=== PATIENT | male | born 1955 | race African-American/Black ===

== ENCOUNTER 2016-05-30 19:12 | Emergency (ER) | payer MEDICARE, OTHER ==
[2016-05-30 19:24] VITALS: BP 132/69; PULSE 82; RESP 16; TEMP 98.1
[2016-05-30] MEDS ORDERED: KETOROLAC 30 MG/ML 1 ML VIAL IM STA (19:35)
[2016-05-30] MEDS ORDERED: HYDROcodone/APAP 10-325MG 1 EACH TAB PO ONE (19:36)
[2016-05-30] MEDS ORDERED: TOBRAMYCIN 0.3% OPHTH DROPS 5 ML BTL BOTH EYES STA (19:39)
--- NOTE | 2016-05-30 19:56 | XR ---
EXAMINATION TYPE: XR knee complete bilateral DATE OF EXAM: 05/30/2016 7:52 PM COMPARISON: 10/07/2013 HISTORY: Knee pain TECHNIQUE: 6 views FINDINGS: There are bilateral total knee prostheses. There is extensive calcification above the right patella. I see no fracture nor dislocation. 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 No acute fracture seen. Atherosclerotic vascular calcification note d.
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
== END 2016-05-30 20:15 | disposition home or self-care (01) ==
LOC: EC 19:12
DX: M25.461 Effusion, right knee (principal); Q10.3 Other congenital malformations of eyelid; I10 Essential (primary) hypertension; F31.9 Bipolar disorder, unspecified; F41.9 Anxiety disorder, unspecified; F17.210 Nicotine dependence, cigarettes, uncomplicated; Z79.899 Other long term (current) drug therapy; Z88.0 Allergy status to penicillin; Z88.5 Allergy status to narcotic agent
CPT/HCPCS: 73562; 99284; 96372; J1885

== ENCOUNTER 2016-06-02 16:44 | Emergency (ER) | payer MEDICARE, OTHER ==
[2016-06-02] MEDS ORDERED: methylPREDNISolone SOD SUCCI 125 MG/2 ML VIAL IM ONE (17:30)
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
[2016-06-02 18:14] VITALS: BP 178/82; PULSE 72; RESP 16; TEMP 98
== END 2016-06-02 18:13 | disposition home or self-care (01) ==
LOC: EC 16:44
DX: G89.29 Other chronic pain (principal); M25.562 Pain in left knee; M25.561 Pain in right knee; I10 Essential (primary) hypertension; F31.9 Bipolar disorder, unspecified; F41.9 Anxiety disorder, unspecified; F17.210 Nicotine dependence, cigarettes, uncomplicated; Z79.1 Long term (current) use of non-steroidal anti-inflammatories (NSAID); Z79.899 Other long term (current) drug therapy; Z88.0 Allergy status to penicillin; Z88.5 Allergy status to narcotic agent; Z98.890 Other specified postprocedural states
CPT/HCPCS: 99283; 96372; J2930

== ENCOUNTER 2016-06-30 00:41 | Observation (INO) | payer MEDICARE, OTHER ==
[2016-06-30] MEDS ORDERED: MORPHINE SULFATE 4 MG/ML SYRINGE IV STA (01:49)
[2016-06-30] MEDS ORDERED: ASPIRIN 81 MG CHEW PO STA (01:49)
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
[2016-06-30 02:42] LABS: Anisocytosis Slight; Basophils # (A) 0.1 k/uL (0-0.2); Basophils % (A) 1 %; CH 28.9; CHCM 32.6; Eosinophils # (A) 0.3 k/uL (0-0.7); Eosinophils % (A) 3 %; HCT 34.3 % (39.0-53.0); Luc # (Auto) 0.09; Luc % (Auto) 1; Lymphocytes # (A) 1.7 k/uL (1.0-4.8); Lymphocytes % (A) 21 %; MCH 28.6 pg (25.0-35.0); MCV 89.3 fL (80.0-100.0); Mean Platelet Volume 6.8; Monocytes # (A) 0.4 k/uL (0-1.0); Monocytes % (A) 4 %; Neutrophils # (A) 5.6 k/uL (1.3-7.7); Neutrophils % (A) 69 %; RBC 3.84 m/uL (4.30-5.90); RDW 16.3 % (11.5-15.5); WBC 8.1 k/uL (3.8-10.6)
--- NOTE | 2016-06-30 02:47 | XR ---
EXAM: XR Chest, 1 View CLINICAL HISTORY: Reason: chest pain TECHNIQUE: Frontal view of the chest. COMPARISON: Chest radiograph 09/15/2013 FINDINGS: Lungs: Pulmonary vasculature is within normal limits. Right base subsegmental atelectasis. No focal pulmonary infiltrates or consolidations. Pleural space: No evidence of pleural effusion or pneumothorax. Heart: [id number] cardiomegaly. Mediastinum: Unremarkable. Bones/joints: Imaged bony thorax is unremarkable. IMPRESSION: [id number] cardiomegaly. Right base subsegmental atelectasis. No evidence of acute cardiopulmonary disease.
[2016-06-30 02:49] LABS: INR 1.1 (<1.1); Partial Thromboplastin Time 27.2 sec (22.0-30.0); Prothrombin Time 11.4 sec (9.0-12.0)
[2016-06-30 02:53] LABS: ALT 24 U/L (21-72); AST 16 U/L (17-59); Alkaline Phosphatase 117 U/L (38-126); Anion Gap 10 mmol/L; Blood Urea Nitrogen 20 mg/dL (9-20); Calcium 8.5 mg/dL (8.4-10.2); Carbon Dioxide 19 mmol/L (22-30); Chloride 110 mmol/L (98-107); Glucose 136 mg/dL (74-99); Magnesium 2.1 mg/dL (1.6-2.3); Non-African American GFR(MDRD) >60 (>60 ml/min/1.73 sqM); Potassium 3.6 mmol/L (3.5-5.1); Sodium 139 mmol/L (137-145); Total Bilirubin 0.3 mg/dL (0.2-1.3); Total Protein 6.5 g/dL (6.3-8.2)
[2016-06-30] MEDS ORDERED: NITROGLYCERIN SL TABS 0.4 MG TAB SUBLINGUAL PRN (06:56)
[2016-06-30] MEDS ORDERED: HYDROcodone/APAP 5-325MG 1 EACH TAB PO STA (07:24)
[2016-06-30] MEDS ORDERED: HYDROcodone/APAP 5-325MG 1 EACH TAB PO PRN (07:24)
[2016-06-30 07:58] VITALS: BMI 27.1
[2016-06-30 08:05] VITALS: RESP 16
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
[2016-06-30] MEDS ORDERED: ETODOLAC 200 MG CAPSULE PO SCH (09:00)
[2016-06-30] MEDS ORDERED: VERAPAMIL SR 120 MG TABLET.ER PO SCH (09:00)
[2016-06-30] MEDS ORDERED: DULoxetine HCL 60 MG CAPSULE.DR PO SCH (09:00)
[2016-06-30] MEDS ORDERED: QUEtiapine 50 MG TAB PO SCH (09:00)
[2016-06-30 10:14] LABS: Creatine Kinase 45 U/L (55-170)
[2016-06-30 10:27] LABS: Creatine Kinase MB 0.5 ng/mL (0.0-2.4); Troponin I <0.012 ng/mL (0.000-0.034)
[2016-06-30 12:14] VITALS: BP 162/77; PULSE 61; TEMP 97.3
[2016-06-30] MEDS ORDERED: QUEtiapine 100 MG TAB PO SCH ×2 (12:30→21:00)
--- NOTE | 2016-06-30 14:02 | HP ---
DATE OF ADMISSION: This dictation is both H&P and discharge summary. Patient is a 60-year-old gentleman who came in with complaints of chest pain, palpitations, racing of heart and fluttering and sweating and dizziness and patient was found to be SVT. The patient converted to sinus rhythm after he was treated with adenosine. Patient had cardiac catheterization to 04/08 which showed normal coronaries and cardiology evaluated the patient and recommending two more sets of troponins. If they are negative, they are recommending discharge. Patient is complaining of right knee pain where he had a knee replacement for which he will need to follow with primary care physician as an outpatient and his surgeon. Patient is symptom-free at this point of time. Patient is clinically doing well. No changes in his verapamil are being made. Patient down the line may benefit from EP study and ambulation. Same thing was discussed with the patient. ROS: all other systems were reviewed and were negative. PAST MEDICAL HISTORY: Significant for hypertension, pneumonia, seizure disorder, sleep apnea, SVT in the past, joint replacement surgery, orthopedic surgery, appendectomy, anxiety, bipolar depression. SOCIAL HISTORY: Patient continues to smoke, he says 2 cigars per day although I believe he smokes more than that. Denied any alcohol abuse or any drug abuse. Patient denied any alcohol abuse or drug abuse. Patient in the past used cocaine and weed. FAMILY HISTORY: Father had prostate cancer and mother had no significant history. Home medications include: Seroquel, Duloxetine, etodolac, verapamil. ALLERGIES: PENICILLIN AND MORPHINE. PHYSICAL EXAMINATION: VITAL SIGNS: Temperature 97.3, pulse of 59 now, respiratory rate of 16. Blood pressure is 147/73, saturating at 965 on room air. GENERAL: Alert and oriented x3. Thin built. HEENT: Pupils are round and equally reacting to light. EOMI. No scleral icterus. No conjunctival pallor. Normocephalic, atraumatic. No pharyngeal erythema. No thyromegaly. CARDIOVASCULAR: S1 and S2 present. No murmurs, rubs, or gallops. PULMONARY: Chest is clear to auscultation, no wheezing or crackles. ABDOMEN: Soft, nontender, nondistended, normoactive bowel sounds. No palpable organomegaly. MUSCULOSKELETAL: No joint swelling or deformity. EXTREMITIES: No cyanosis, clubbing, or pedal edema. NEUROLOGICAL: Gross neurological examination did not reveal any focal deficits. SKIN: No rashes. LABORATORY DATA: CBC, CMP are abnormal for mildly elevated creatinine of 1.20. I do not have his baseline. Chloride is 110. TSH is not available at this time and can be done as an outpatient. ASSESSMENT AND PLAN: 1. Episode of supraventricular tachycardia leading to chest pain and will also rule out acute coronary syndrome. Patient will be subsequently discharged after the second set of troponins if it is negative. 2. Sleep apnea. Continue with his CPAP machine. 3. Continued smoking history. Counseling was provided. 4. Seizure disorder. Does not appear to be on any antiseizure medications at this point of time. That management as per primary care physician. 5. Bipolar disorder for which patient is on Seroquel, which can be continued. The patient will be discharged today in stable medical condition to home. Patient will follow with Dr. Tijerina in 3 weeks, Dr. Patrick Rogers in 3 to 7 days. Patient down the line will require EP study and ablation procedure. TERRANCE
[2016-07-01] MEDS ORDERED: ASPIRIN 325 MG TAB PO SCH (09:00)
== END 2016-06-30 14:20 | disposition home or self-care (01) ==
LOC: EC 00:41 → 3OBS 06:56
PROVIDERS: ADMIT Family Medicine; ATTEND Family Medicine
DX: I47.1 Supraventricular tachycardia (principal); G40.909 Epilepsy, unspecified, not intractable, without status epilepticus; G47.30 Sleep apnea, unspecified; F31.9 Bipolar disorder, unspecified; I10 Essential (primary) hypertension; F41.9 Anxiety disorder, unspecified; M25.561 Pain in right knee; Z88.5 Allergy status to narcotic agent; Z88.0 Allergy status to penicillin; F17.290 Nicotine dependence, other tobacco product, uncomplicated; Z99.89 Dependence on other enabling machines and devices; Z79.899 Other long term (current) drug therapy; Z79.1 Long term (current) use of non-steroidal anti-inflammatories (NSAID); Z96.653 Presence of artificial knee joint, bilateral
CPT/HCPCS: 96374; 99285; 36415; 93005; 80053; 82550; 82553; 83735; 84484; 85025; 85610; 85730; 71010; G0378; J2270

== ENCOUNTER 2017-04-01 13:18 | Emergency (ER) | payer MEDICARE, OTHER ==
[2017-04-01 13:29] VITALS: PULSE 67; RESP 18; TEMP 97.4
[2017-04-01] MEDS ORDERED: HYDROcodone/APAP 7.5-325MG 1 EACH TAB PO ONE (14:55)
[2017-04-01] MEDS ORDERED: KETOROLAC 30 MG/ML 1 ML VIAL IM STA (14:55)
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
[2017-04-01 15:19] LABS: Appearance,Urine Cloudy (Clear); Bacteria,Urine Occasional /hpf; Bilirubin,Urine Negative (Negative); Blood,Urine Negative (Negative); Color,Urine Yellow; Glucose,Urine (UA) Negative (Negative); Ketones,Urine Negative (Negative); Leukocyte Esterase,Urine Large (Negative); Mucus,Urine Rare /hpf; Nitrite,Urine Negative (Negative); PH, Urine 6.5 (5.0-8.0); Protein,Urine 1+ (Negative); RBC,Urine 13 /hpf (0-5); Specific Gravity,Urine 1.012 (1.001-1.035); Squamous Epithelial Cell,Urine 2 /hpf (0-4); Urobilinogen,Urine <2.0 mg/dL (<2.0); WBC,Urine 91 /hpf (0-5)
[2017-04-01 15:29] LABS: Amphetamine Screen,Urine Not Detected (NotDetected); Barbiturate Screen,Urine Not Detected (NotDetected); Benzodiazepines Screen,Urine Not Detected (NotDetected); Cocaine Screen,Urine Detected (NotDetected); Methadone Screen, Urine Not Detected (NotDetected); Opiate Screen,Urine Not Detected (NotDetected); Oxycodone Screen, Urine Not Detected (NotDetected); Phencyclidine Screen,Urine Not Detected (NotDetected); Tricyclic Antidepressant,Urine Detected (NotDetected); Urn Cannabinoid Scrn Not Detected (NotDetected)
--- NOTE | 2017-04-01 15:32 | XR ---
EXAMINATION TYPE: XR pelvis AP view DATE OF EXAM: 04/01/2017 CLINICAL HISTORY: pain TECHNIQUE: Single view the pelvis is submitted. FINDINGS: No evidence for fracture, dislocation or bony lesion. Joint spaces are well-preserved. S I joints appear symmetric. IMPRESSION: 1. No acute fracture or dislocation seen. ICD 10 NO FRACTURE, INITIAL EVALUATION
[2017-04-01 16:03] VITALS: BP 188/93
== END 2017-04-01 16:02 | disposition home or self-care (01) ==
LOC: EC 13:18
DX: G89.29 Other chronic pain (principal); R10.32 Left lower quadrant pain; F14.10 Cocaine abuse, uncomplicated; F41.9 Anxiety disorder, unspecified; R45.1 Restlessness and agitation; R29.898 Other symptoms and signs involving the musculoskeletal system; I10 Essential (primary) hypertension; F31.9 Bipolar disorder, unspecified; F17.200 Nicotine dependence, unspecified, uncomplicated; Z79.1 Long term (current) use of non-steroidal anti-inflammatories (NSAID); Z79.899 Other long term (current) drug therapy; Z88.0 Allergy status to penicillin; Z88.5 Allergy status to narcotic agent; Z86.79 Personal history of other diseases of the circulatory system; Z90.49 Acquired absence of other specified parts of digestive tract
CPT/HCPCS: 81001; 80306; 72170; 99284; 96372; J1885

== ENCOUNTER 2017-04-09 18:31 | Inpatient (IN) | payer MEDICARE, OTHER ==
[2017-04-09] MEDS ORDERED: SODIUM CHLORIDE 0.9% 500 ML IV STA ×2 (18:52→20:17)
[2017-04-09] MEDS ORDERED: SODIUM CHLORIDE 0.9% 1,000 ML IV STA ×3 (18:52→20:17)
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
[2017-04-09 19:19] LABS: Anisocytosis Slight; Basophils % (A) 0 %; Eosinophils % (A) 0 %; HGB 11.7 gm/dL (13.0-17.5); Hypochromasia Moderate; Lymphocytes # (A) 0.9 k/uL (1.0-4.8); Lymphocytes % (A) 8 %; MCH 28.8 pg (25.0-35.0); MCHC 30.1 g/dL (31.0-37.0); MCV 95.5 fL (80.0-100.0); Mean Platelet Volume 7.7; Monocytes # (A) 0.3 k/uL (0-1.0); Monocytes % (A) 3 %; Neutrophils # (A) 9.1 k/uL (1.3-7.7); Neutrophils % (A) 88 %; Platelet Count 148 k/uL (150-450); RBC 4.08 m/uL (4.30-5.90); RDW 16.1 % (11.5-15.5); WBC 10.4 k/uL (3.8-10.6)
[2017-04-09] MEDS ORDERED: DILTIAZEM 125 MG in SODIUM CHLORIDE 0.9% 100 ML IV ONE (19:26)
[2017-04-09] MEDS ORDERED: DILTIAZEM 5 MG/ML 5 ML VIAL IVP STA (19:26)
[2017-04-09 19:27] LABS: INR 1.2 (<1.2); Partial Thromboplastin Time 24.1 sec (22.0-30.0); Prothrombin Time 11.5 sec (9.0-12.0)
[2017-04-09] MEDS ORDERED: LABETALOL 5 MG/ML VIAL MDV IVP STA (19:27)
[2017-04-09 19:29] LABS: ALT 58 U/L (21-72); AST 132 U/L (17-59); Acetaminophen <10.0 ug/mL; Albumin 5.1 g/dL (3.5-5.0); Alcohol <10 mg/dL; Alkaline Phosphatase 178 U/L (38-126); Calcium 8.4 mg/dL (8.4-10.2); Chloride 114 mmol/L (98-107); Glucose 112 mg/dL (74-99); Magnesium 1.9 mg/dL (1.6-2.3); Potassium 5.4 mmol/L (3.5-5.1); Salicylate <1.0 mg/dL; Sodium 152 mmol/L (137-145); Total Bilirubin 0.7 mg/dL (0.2-1.3); Total Protein 9.2 g/dL (6.3-8.2)
[2017-04-09 19:33] LABS: Anion Gap 29 mmol/L
[2017-04-09 19:44] LABS: Blood Urea Nitrogen 97 mg/dL (9-20); Carbon Dioxide 9 mmol/L (22-30)
[2017-04-09 19:45] LABS: Phosphorus 9.2 mg/dL (2.5-4.5)
[2017-04-09 19:49] LABS: Troponin I 0.031 ng/mL (0.000-0.034)
--- NOTE | 2017-04-09 19:51 | CT ---
EXAMINATION TYPE: CT brain wo con DATE OF EXAM: 04/09/2017 COMPARISON: 09/15/2013 HISTORY: Weakness. Fall today, possible seizure. CT DLP: 2764.20 mGycm Automated exposure control for dose reduction was used. FINDINGS: The ventricles have normal size. There is no mass effect nor midline shift. There is no sign of intra cranial hemorrhage. There is mild cerebral cortical atrophy. The calvarium is intact. IMPRESSION: MILD ATROPHY. OTHERWISE NEGATIVE EXAM. NO CHANGE.
--- NOTE | 2017-04-09 19:53 | XR ---
EXAMINATION TYPE: XR chest 2V DATE OF EXAM: 04/09/2017 COMPARISON: 01/20/2017 HISTORY: Altered mental status. Fall. TECHNIQUE: Frontal and lateral views of the chest are obtained. FINDINGS: Heart is enlarged. There is no heart failure. Lungs are clear of consolidation. Thoracic a malcolm is atheromatous. There are chest leads. There is old right lateral healed rib fracture. There is spurring in the thoracic spine. IMPRESSION: Cardiomegaly. No active cardiopulmonary disease. No change compared to old exam.
[2017-04-09 20:03] LABS: Creatine Kinase MB 47.2 ng/mL (0.0-2.4)
[2017-04-09] MEDS ORDERED: NALOXONE 0.4 MG/ML 1 ML VIAL IV PRN (20:17)
[2017-04-09] MEDS ORDERED: LORazepam 2 MG/ML INJ IV PRN (20:20)
[2017-04-09] MEDS ORDERED: THIAMINE 100 MG/ML 2 ML VIAL IM STA (20:20)
[2017-04-09] MEDS ORDERED: hydrALAZINE HCL 20 MG/ML 1 ML VIAL IVP STA (20:40)
[2017-04-09] MEDS ORDERED: levETIRAcetam IV 1,000 MG in SALINE 1 100ML.BAG IVPB STA (20:43)
[2017-04-09] MEDS ORDERED: LORazepam 2 MG/ML INJ IV STA (20:52)
[2017-04-09 21:14] LABS: Appearance,Urine Clear (Clear); Bacteria,Urine Rare /hpf; Bilirubin,Urine Negative (Negative); Blood,Urine Moderate (Negative); Color,Urine Light Yellow; Glucose,Urine (UA) Negative (Negative); Ketones,Urine Trace (Negative); Leukocyte Esterase,Urine Negative (Negative); Mucus,Urine Rare /hpf; Nitrite,Urine Negative (Negative); Protein,Urine 2+ (Negative); RBC,Urine 1 /hpf (0-5); Specific Gravity,Urine 1.007 (1.001-1.035); Squamous Epithelial Cell,Urine <1 /hpf (0-4); Urobilinogen,Urine <2.0 mg/dL (<2.0); WBC,Urine <1 /hpf (0-5)
[2017-04-09] MEDS: DEXTROSE 5% IN WATER 1,000 ML with SODIUM BICARB (1 MEQ/ML) 150 ML IV SCH (21:22)
[2017-04-09 21:24] LABS: Amphetamine Screen,Urine Not Detected (NotDetected); Barbiturate Screen,Urine Not Detected (NotDetected); Benzodiazepines Screen,Urine Not Detected (NotDetected); Cocaine Screen,Urine Detected (NotDetected); Methadone Screen, Urine Not Detected (NotDetected); Opiate Screen,Urine Detected (NotDetected); Oxycodone Screen, Urine Not Detected (NotDetected); Phencyclidine Screen,Urine Not Detected (NotDetected); Tricyclic Antidepressant,Urine Not Detected (NotDetected); Urn Cannabinoid Scrn Not Detected (NotDetected)
[2017-04-09] MEDS ORDERED: cloNIDine 0.1 MG/24HR PATCH 1 PATCH PATCH TRANSDERM SCH (23:00)
[2017-04-10] MEDS: CLEVIDIPINE BUTYRATE 25 MG in EMPTY BAG 1 BAG IV SCH ×7 (00:51→21:08)
[2017-04-10] MEDS: LORazepam 2 MG/ML INJ IV PRN ×8 (02:54→22:15)
[2017-04-10 05:49] LABS: Anisocytosis Slight; Basophils % (A) 0 %; Eosinophils % (A) 0 %; HGB 11.1 gm/dL (13.0-17.5); Lymphocytes # (A) 1.5 k/uL (1.0-4.8); Lymphocytes % (A) 18 %; MCH 29.2 pg (25.0-35.0); MCHC 31.6 g/dL (31.0-37.0); MCV 92.2 fL (80.0-100.0); Mean Platelet Volume 7.9; Monocytes # (A) 0.4 k/uL (0-1.0); Monocytes % (A) 5 %; Neutrophils # (A) 6.4 k/uL (1.3-7.7); Neutrophils % (A) 76 %; Platelet Count 131 k/uL (150-450); RBC 3.79 m/uL (4.30-5.90); RDW 16.5 % (11.5-15.5); WBC 8.4 k/uL (3.8-10.6)
[2017-04-10 06:09] LABS: Albumin 4.4 g/dL (3.5-5.0); Calcium 7.5 mg/dL (8.4-10.2); Magnesium 1.6 mg/dL (1.6-2.3); Phosphorus 6.3 mg/dL (2.5-4.5); Potassium 3.4 mmol/L (3.5-5.1); Total Bilirubin 0.7 mg/dL (0.2-1.3)
[2017-04-10] MEDS: IPRATROPIUM-ALBUTEROL 3 ML NEB INHALATION PRN ×2 (08:07→10:54)
[2017-04-10] MEDS: levETIRAcetam IV 1,000 MG in SALINE 1 100ML.BAG IVPB SCH ×2 (08:55→23:01)
[2017-04-10] MEDS: PANTOPRAZOLE 40 MG/10 ML VIAL IV SCH (08:55)
[2017-04-10] MEDS: DEXTROSE 5% IN WATER 1,000 ML with SODIUM BICARB (1 MEQ/ML) 150 ML IV SCH (08:56)
[2017-04-10] MEDS ORDERED: ENOXAPARIN 40 MG/0.4 ML SYRINGE SQ SCH (09:00)
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
[2017-04-10] MEDS: cloNIDine 0.3 MG/24HR PATCH 1 PATCH PATCH TRANSDERM SCH (11:39)
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
--- NOTE | 2017-04-10 16:06 | PN ---
PROGRESS NOTE DATE OF SERVICE: 04/10/17 CHIEF COMPLAINT: Coma, rhabdomyolysis, renal failure. HISTORY OF PRESENT ILLNESS: This gentleman has been stable overnight but there has been no significant change. Laboratory values are to be repeated. He is still comatose. PHYSICAL EXAM: CHEST: Clear. The cardiac exam is unchanged. Abdomen is soft. Extremities the same. He remains very dehydrated. His blood pressure is elevated. IMPRESSION: 1. Rhabdomyolysis. 2. Renal failure, probably chronic and acute. 3. Cirrhosis. 4. Alcoholism. 5. Drug addiction. 6. Atrial fibrillation. PLAN: He will be transferred ICU and medical management and support will continue. Prognosis is poor. MMODL / IJN: [id number] /
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
[2017-04-10] MEDS: THIAMINE 100 MG TAB PO SCH ×2 (16:25→18:46)
[2017-04-10 17:15] LABS: HIV AB P24 Non-Reactive (Non-Reactive); HIV P24 AG Non-Reactive (Non-Reactive)
[2017-04-10 18:07] LABS: Anisocytosis Slight; Basophils % (A) 0 %; Eosinophils % (A) 1 %; HCT 36.2 % (39.0-53.0); HGB 11.3 gm/dL (13.0-17.5); Lymphocytes # (A) 1.5 k/uL (1.0-4.8); Lymphocytes % (A) 19 %; MCHC 31.2 g/dL (31.0-37.0); MCV 93.1 fL (80.0-100.0); Mean Platelet Volume 7.8; Monocytes # (A) 0.5 k/uL (0-1.0); Monocytes % (A) 6 %; Neutrophils # (A) 5.7 k/uL (1.3-7.7); Neutrophils % (A) 72 %; Platelet Count 131 k/uL (150-450); RBC 3.88 m/uL (4.30-5.90); RDW 16.2 % (11.5-15.5); WBC 7.9 k/uL (3.8-10.6)
[2017-04-10 18:14] LABS: Hepatitis A Antibody IgM Non-Reactive (Non-Reactive); Hepatitis B Core IgM Non-Reactive (Non-Reactive)
[2017-04-10 18:19] LABS: Calcium 7.2 mg/dL (8.4-10.2); Magnesium 1.5 mg/dL (1.6-2.3); Phosphorus 5.3 mg/dL (2.5-4.5); Potassium 3.4 mmol/L (3.5-5.1)
[2017-04-10 18:40] LABS: Glucose,Whole Blood 101 mg/dL (75-99)
[2017-04-10] MEDS ORDERED: LORazepam 2 MG/ML INJ IM STA (20:51)
[2017-04-11] MEDS: CLEVIDIPINE BUTYRATE 25 MG in EMPTY BAG 1 BAG IV SCH ×3 (00:20→07:48)
[2017-04-11] MEDS: DEXTROSE 5% IN WATER 1,000 ML with SODIUM BICARB (1 MEQ/ML) 150 ML IV SCH (00:27)
[2017-04-11] MEDS: LORazepam 2 MG/ML INJ IV PRN ×9 (02:41→23:10)
[2017-04-11 05:16] LABS: Anisocytosis Slight; Basophils % (A) 0 %; Eosinophils # (A) 0.1 k/uL (0-0.7); Eosinophils % (A) 1 %; HCT 35.5 % (39.0-53.0); HGB 11.5 gm/dL (13.0-17.5); Lymphocytes # (A) 1.5 k/uL (1.0-4.8); Lymphocytes % (A) 19 %; MCH 29.2 pg (25.0-35.0); MCHC 32.3 g/dL (31.0-37.0); MCV 90.4 fL (80.0-100.0); Mean Platelet Volume 7.6; Monocytes # (A) 0.4 k/uL (0-1.0); Monocytes % (A) 6 %; Neutrophils # (A) 5.8 k/uL (1.3-7.7); Neutrophils % (A) 73 %; Platelet Count 125 k/uL (150-450); RBC 3.93 m/uL (4.30-5.90); RDW 16.3 % (11.5-15.5); WBC 7.9 k/uL (3.8-10.6)
[2017-04-11 05:30] LABS: Calcium 6.8 mg/dL (8.4-10.2); Magnesium 1.4 mg/dL (1.6-2.3); Phosphorus 4.6 mg/dL (2.5-4.5); Potassium 3.4 mmol/L (3.5-5.1)
[2017-04-11] MEDS ORDERED: Potassium Replacement Protocol 1 EACH MISC MISCELLANE PRN ×3 (06:37→15:42)
[2017-04-11] MEDS ORDERED: POTASSIUM CHLORIDE 10 MEQ in WATER FOR INJECTION 1 100ML.BAG IVPB ONE (06:37)
[2017-04-11] MEDS ORDERED: Magnesium Replacement Protocol 1 EACH MISC MISCELLANE PRN (06:38)
--- NOTE | 2017-04-11 07:10 | XR ---
EXAMINATION TYPE: XR chest 1V DATE OF EXAM: 04/11/2017 COMPARISON: 04/09/2017 HISTORY: 61-year-old male rule out pleural effusions, shortness of breath TECHNIQUE: Single frontal view of the chest is obtained. FINDINGS: Heart is borderline enlarged. Mild elongation of the thoracic aorta. Mild interstitial prominence is unchanged. No significant pleural effusion seen. IMPRESSION: Borderline cardiomegaly. No definite acute process. No significant effusion seen on the frontal view.
[2017-04-11] MEDS ORDERED: HALOPERIDOL LACTATE 5 MG/ML 1 ML VIAL ONE (08:05)
[2017-04-11] MEDS: levETIRAcetam IV 1,000 MG in SALINE 1 100ML.BAG IVPB SCH (08:52)
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
[2017-04-11] MEDS: MAGNESIUM SULFATE-D5W PMX 1 GM in DEXTROSE/WATER 1 100ML.BAG IVPB SCH ×3 (10:01→11:02)
[2017-04-11] MEDS: ENOXAPARIN 30 MG/0.3 ML SYRINGE SQ SCH (10:23)
[2017-04-11] MEDS: PANTOPRAZOLE 40 MG/10 ML VIAL IV SCH (10:26)
--- NOTE | 2017-04-11 11:17 | P.PN ---
Subjective Progress Note Date: 04/11/17 Principal diagnosis: Altered mental status secondary to multiple drug overdose, urine drug screen positive for cocaine and opiates. This is a 61-year-old gentleman with a known history of SVT on verapamil, hypertension, alcoholism with previous seizures, pancreatitis, sleep apnea not utilizing CPAP in the outpatient setting, severe peng from his chest to his lower extremities from previous fall into it been of acid while working and the [place] area many years ago osteoarthritis with bilateral knee replacements , bipolar disorder, chronic and ongoing tobacco dependence, chronic and ongoing drug abuse. He was brought into the emergency room approximately 6:30 last evening after being found in just a T-shirt laying on a porch next to his apartment complex. His urine drug screen was positive for opiates and cocaine. Sodium 152, potassium 5.4, chloride 114, bicarb 9, BUN 97 creatinine 5.10 mL lactic acid 4.3, AST 132, total creatinine kinase 4631, TSH 0.333. EKG shows atrial fibrillation with ST and T-wave abnormalities of the inferior lateral leads along with LVH. Troponin 0.031. Computed tomography scan of the brain was negative for any acute intracranial abnormalities. Chest x-ray reveals no acute pulmonary process. He has been hypertensive systolic 200s over diastolic 100s. He's been initiated on Clevidipine currently at 16 mg per hour. He is also on D5 W with 3 A of bicarb at 100 mL per hour. He is seen today in consultation in the end emergency room. He remains quite obtunded. Grimacing to painful stimuli only. Current labs reveal a WBC 8.4, hemoglobin 11.1, sodium 148, potassium 3.4, chloride 116, carbon dioxide 12, BUN 93, creatinine 4.20. Most of his history is taken from his sister who is at the bedside. She states he's had drug abuse problems for many many years. Lactic acid down to 1.0. He Has been able to protect his airway. He is saturating up to 100% on room air. He is less tachycardic. No tachypnea. Core temperature 97.7. He has been initiated on Keppra. He is also on the CIWA protocol. Awaiting transfer to the intensive care unit. Patient was reevaluated today on 04/11/2017, he is presently in the intensive care unit, intermittently agitated, and one of his IVs was pulled out. Nursing staff had difficulty reestablishing another IV access. However his still has one IV access in place, and the patient is receiving Ativan and Haldol when necessary. Seems to be working well especially after adding Haldol. Patient remains on IV fluids as ordered yesterday, however his sodium is up to 151, chloride is 115, and bicarb is up from 12-16. WBC count is 7.9 hemoglobin is 11.5. Patient is on IV fluid in the form of D5W and sodium bicarbonate added. Presently in sinus rhythm, he was on Cardizem for atrial fibrillation. But he converted to sinus rhythm. Remains on bronchodilators, remains on Ativan, and on Haldol when necessary. Chest x-ray showed cardiomegaly but no evidence of active disease. Patient was seen by nephrology in consultation, and he was felt to have acute kidney injury secondary to acute tubular necrosis, and he was kept on aggressive IV hydration. Maintained also on sodium bicarb for his lactic acidosis. And his hypernatremia is being corrected with free water. Objective - Vital Signs Vital signs: Vital Signs Temp 97.1 F L 04/11/17 08:00 Pulse 60 04/11/17 11:00 Resp 13 04/11/17 11:00 BP 112/61 04/11/17 11:00 Pulse Ox 100 04/11/17 11:00 Intake & Output 04/10/17 04/11/17 04/11/17 18:59 06:59 18:59 Intake Total 374.513 4176.000 1035.667 Output Total 2690 735 1175 Balance -2062.300 615.000 -139.333 Weight 81.647 kg 59.9 kg Intake: IV 40 1200 1000 0.9 NS 40 Dextrose 5% in Water 1, 1200 500 000 ml @ 100 mls/hr IV . [id number] ANDREA with Sodium Bicarb (1 Meq/ml) 150 ml Rx#:[id number] Magnesium Sulfate-D5w Pmx 200 1 gm In Dextrose/Water 1 100ml.bag @ 100 mls/hr IVPB Q1H ANDREA Rx#: [id number] Potassium Chloride 10 meq 200 In Water For Injection 1 100ml.bag @ 100 mls/hr IVPB ONCE ONE Rx#: [id number] levETIRAcetam IV 1,000 mg 100 In Saline 1 100ml.bag @ 400 mls/hr IVPB Q12HR ANDREA Rx#:[id number] Intake, IV Titration 587.700 150.000 35.667 Amount Clevidipine Butyrate 25 187.700 150.000 35.667 mg In Empty Bag 1 bag @ 1 MG/HR 2 mls/hr IV .Q24H ANDREA Rx#:[id number] Dextrose 5% in Water 1, 400 000 ml @ 100 mls/hr IV . [id number] ANDREA with Sodium Bicarb (1 Meq/ml) 150 ml Rx#:[id number] Output: Urine 2690 735 1175 Other: Voiding Method Indwelling Catheter Indwelling Catheter - Exam GENERAL EXAM: Frail, cachectic. Lethargic, arousable, follows simple instructions only. HEAD: Normocephalic. EYES: Sluggish reaction of pupils, equal size. NOSE: Clear with pink turbinates. THROAT: No erythema or exudates. NECK: No masses, no JVD. CHEST: No chest wall deformity. LUNGS: Equal air entry with no crackles, wheeze, rhonchi or dullness. CVS: S1 and S2 normal with no audible murmur, regular rhythm. ABDOMEN: No hepatosplenomegaly, normal bowel sounds, no guarding or rigidity. SPINE: No scoliosis or deformity SKIN: No rashes, evidence of previous skin grafting of the chest and lower extremities. CENTRAL NERVOUS SYSTEM: Moving all 4 extremities. EXTREMITIES: There is no peripheral edema. No clubbing, no cyanosis. Peripheral pulses are intact. There are wounds of the toes. - Labs CBC & Chem 7: 04/11/17 04:53 04/11/17 04:53 Labs: Abnormal Lab Results - Last 24 Hours (Table) 04/10/17 04/10/17 04/10/17 Range/Units 05:35 17:50 17:50 RBC 3.88 L (4.30-5.90) m/uL Hgb 11.3 L (13.0-17.5) gm/dL Hct 36.2 L (39.0-53.0) % RDW 16.2 H (11.5-15.5) % Plt Count 131 L (150-450) k/uL Sodium 151 H (137-145) mmol/L Potassium 3.4 L (3.5-5.1) mmol/L Chloride 115 H (98-107) mmol/L Carbon Dioxide 17 L (22-30) mmol/L BUN 88 H* (9-20) mg/dL Creatinine 4.10 H (0.66-1.25) mg/dL Glucose 124 H (74-99) mg/dL POC Glucose (mg/dL) (75-99) mg/dL Calcium 7.2 L (8.4-10.2) mg/dL Phosphorus 5.3 H (2.5-4.5) mg/dL Magnesium 1.5 L (1.6-2.3) mg/dL Hep C IgG Ab Reactive H (Non-Reactive) 04/10/17 04/11/17 04/11/17 Range/Units 18:38 04:53 04:53 RBC 3.93 L (4.30-5.90) m/uL Hgb 11.5 L (13.0-17.5) gm/dL Hct 35.5 L (39.0-53.0) % RDW 16.3 H (11.5-15.5) % Plt Count 125 L (150-450) k/uL Sodium 151 H (137-145) mmol/L Potassium 3.4 L (3.5-5.1) mmol/L Chloride 115 H (98-107) mmol/L Carbon Dioxide 16 L (22-30) mmol/L BUN 86 H* (9-20) mg/dL Creatinine 3.98 H (0.66-1.25) mg/dL Glucose 115 H (74-99) mg/dL POC Glucose (mg/dL) 101 H (75-99) mg/dL Calcium 6.8 L (8.4-10.2) mg/dL Phosphorus 4.6 H (2.5-4.5) mg/dL Magnesium 1.4 L (1.6-2.3) mg/dL Hep C IgG Ab (Non-Reactive) Microbiology - Last 24 Hours (Table) 04/09/17 20:30 Urine Culture - Preliminary Urine,Catheterized Assessment and Plan Assessment: #1 Altered mental status suspected secondary to multiple drug overdose. Urine drug screen positive for cocaine and opiates. #2 Rhabdomyolysis secondary to suspected prolonged down time. CPK on admission was 4631, we'll continue to monitor CPK. #3 Acute on chronic renal failure with presenting creatinine of 5.10, currently 4.20. Acidosis. Currently on a bicarb drip. #4 Hyperkalemia with presenting potassium 5.4, currently 3.4. #5 Hypernatremia with presenting sodium 152, currently 148 years #6 Atrial fibrillation with rapid ventricular response, currently in normal sinus rhythm. #7 Hypertensive urgency currently on Clevidipine at 16 mg per hour. #8 History of pancreatitis. #9 History of SVT. #10 Previous history of alcohol abuse with withdrawal seizures. Initiated on Keppra. #11 Chronic and ongoing tobacco dependence. #12 History of bipolar disorder. #13 positive hepatitis C IgG antibody. Recommendation: Continue to monitor closely, patient will be kept in the ICU today, continue Ativan and Haldol as needed, continue to monitor renal status daily, continue to monitor CPK daily, will follow. Prognosis is definitely guarded. Discussed his condition with his at bedside. Critical care time is 35 minutes. Time with Patient: Greater than 30
[2017-04-11] MEDS: HALOPERIDOL LACTATE 5 MG/ML 1 ML VIAL IM PRN ×2 (11:53→15:51)
[2017-04-11] MEDS ORDERED: SODIUM BICARB IV SCH ×3 (12:00)
[2017-04-11] MEDS ORDERED: DEXTROSE 5% IV SCH ×3 (12:00)
[2017-04-11] MEDS ORDERED: WATER IV SCH ×3 (12:00)
[2017-04-11] MEDS ORDERED: [UNRECOGNIZED DRUG - OTHER] IV SCH ×3 (12:00)
[2017-04-11] MEDS: POTASSIUM CHLORIDE 10 MEQ in SODIUM CHLORIDE 0.9% 100 ML IVPB SCH ×2 (12:28→15:24)
[2017-04-11] MEDS: THIAMINE 100 MG TAB PO SCH ×2 (13:57→16:03)
[2017-04-11 14:54] LABS: Magnesium 2.1 mg/dL (1.6-2.3); Phosphorus 4.2 mg/dL (2.5-4.5); Potassium 3.1 mmol/L (3.5-5.1)
[2017-04-11 15:01] LABS: Calcium 6.7 mg/dL (8.4-10.2)
--- NOTE | 2017-04-11 15:40 | PN ---
PROGRESS NOTE Patient is seen for followup for acute kidney injury and multiple electrolyte abnormalities and hypertensive urgency. The patient is much more awake today. He remains on the Cleviprex drip; however, it is down to about 4 mg. He has a Alonzo catheter with good urine output. IV fluids are running at about 100 mL an hour. D5W with 3 amps of sodium bicarb. Blood pressure is 124/73, heart rate 65 per minute. Patient is afebrile. Examination of the heart: S1, S2. Examination of lungs: Decreased breath sounds at bases. No crackles or wheezing is heard. Abdomen is soft, nontender. Examination lower extremity shows no evidence of edema. IMMUNOCHEMIST exam cannot be performed in detail. However, patient has been moving all 4 extremities. He is arousable, but not awake enough to take oral medications. LABS: Sodium 151, potassium 3.4, chloride 115, CO2 16, BUN 86, serum creatinine 3.98, hemoglobin 11.5 g/dL. ASSESSMENT: 1. Acute kidney injury, acute tubular necrosis, currently nonoliguric and also secondary to hypovolemia, slightly improved than on admission, currently nonoliguric. Continue with IV fluids. 2. Hypernatremia associated with free water deficit. Sodium is high again. I will change the IV fluids to increase free water. 3. Hypokalemia, being replaced. 4. Severe metabolic acidosis secondary to lactic acidosis and renal failure, currently improved, was an anion gap. 5. Hyperphosphatemia secondary to renal failure. 6. Hypomagnesemia, currently being replaced. 7. Substance abuse with drug screen positive for cocaine and opiates. 8. Hepatitis C antibody positive. 9. Hypertensive urgency. 10.History of seizures. PLAN: Replace potassium and magnesium. Change IV fluids to D5W with 100 mEq of sodium bicarb instead of 150. Once patient is able to eat, we can add oral sodium bicarb. Cleviprex drip continues to be weaned down. The patient is maintained on clonidine at 0.3 micro mcg patch. Repeat labs in 6 hours and then again in a.m. MMKIKIL / JIMBON: [id number] /
[2017-04-11] MEDS: POTASSIUM CHLORIDE 20 MEQ in WATER FOR INJECTION 1 100ML.BAG IVPB SCH ×3 (16:00→20:24)
--- NOTE | 2017-04-11 16:07 | PN ---
PROGRESS NOTE DATE OF SERVICE: 04/11/2017 CHIEF COMPLAINT: Coma, rhabdomyolysis, dehydration, renal failure, alcoholism and substance abuse. HISTORY OF PRESENT ILLNESS: This gentleman has stabilized somewhat. Urinary output is adequate and renal function is slowly improving. He remained comatose. PHYSICAL EXAM: There are breath sounds bilaterally. The cardiac is normal. The abdomen is flat and scaphoid. IMPRESSION: 1. Rhabdomyolysis. 2. Renal failure. 3. Dehydration. 4. Drug abuse. 5. Alcoholism. PLAN: Continue to follow with med, renal and intensive medicine. MMODL / IJN: [id number] /
[2017-04-11] MEDS: D5W WITH KCL 20 MEQ/L 1,000 ML IV SCH (16:40)
[2017-04-11] MEDS ORDERED: CALCIUM GLUCONATE IVPB ONE ×2 (17:00)
[2017-04-11] MEDS ORDERED: WATER IVPB ONE ×2 (17:00)
[2017-04-11] MEDS ORDERED: DEXTROSE 5% IVPB ONE ×2 (17:00)
[2017-04-11] MEDS ORDERED: CALCIUM GLUCONATE 1,000 MG in SODIUM CHLORIDE 0.9% 100 ML IVPB ONE (17:00)
[2017-04-11] MEDS: HALOPERIDOL LACTATE 5 MG/ML 1 ML VIAL IVP PRN (20:24)
[2017-04-11] MEDS: WATER IVPB SCH ×2 (20:25)
[2017-04-11] MEDS: LEVETIRACETAM IVPB SCH ×2 (20:25)
[2017-04-11] MEDS: DEXTROSE 5% IVPB SCH ×2 (20:25)
[2017-04-11 23:46] LABS: Calcium 6.7 mg/dL (8.4-10.2); Magnesium 1.8 mg/dL (1.6-2.3); Potassium 3.7 mmol/L (3.5-5.1)
[2017-04-12] MEDS: CLEVIDIPINE BUTYRATE 25 MG in EMPTY BAG 1 BAG IV SCH ×4 (00:06→21:34)
[2017-04-12] MEDS: HALOPERIDOL LACTATE 5 MG/ML 1 ML VIAL IVP PRN ×6 (00:08→21:35)
[2017-04-12] MEDS ORDERED: POTASSIUM CHLORIDE 10 MEQ in WATER FOR INJECTION 1 100ML.BAG IVPB SCH ×2 (00:15→07:15)
[2017-04-12] MEDS ORDERED: POTASSIUM CHLORIDE 20 MEQ in WATER FOR INJECTION 1 100ML.BAG IVPB STA (00:16)
[2017-04-12] MEDS: MAGNESIUM SULFATE-D5W PMX 1 GM in DEXTROSE/WATER 1 100ML.BAG IVPB SCH ×2 (00:56→02:07)
[2017-04-12] MEDS: LORazepam 2 MG/ML INJ IV PRN ×7 (00:57→21:39)
[2017-04-12 05:49] LABS: Anisocytosis Slight; Basophils % (A) 0 %; Eosinophils # (A) 0.2 k/uL (0-0.7); Eosinophils % (A) 2 %; HCT 36.5 % (39.0-53.0); HGB 11.5 gm/dL (13.0-17.5); Lymphocytes # (A) 1.6 k/uL (1.0-4.8); Lymphocytes % (A) 18 %; MCH 28.7 pg (25.0-35.0); MCHC 31.6 g/dL (31.0-37.0); Mean Platelet Volume 7.9; Monocytes # (A) 0.3 k/uL (0-1.0); Monocytes % (A) 4 %; Neutrophils # (A) 6.9 k/uL (1.3-7.7); Neutrophils % (A) 76 %; Platelet Count 120 k/uL (150-450); RBC 4.01 m/uL (4.30-5.90); RDW 16.4 % (11.5-15.5); WBC 9.1 k/uL (3.8-10.6)
[2017-04-12 05:59] LABS: Ionized Calcium 3.7 mg/dL (4.5-5.3)
[2017-04-12 06:07] LABS: Calcium 6.9 mg/dL (8.4-10.2); Magnesium 2.4 mg/dL (1.6-2.3); Phosphorus 3.9 mg/dL (2.5-4.5); Potassium 3.5 mmol/L (3.5-5.1)
--- NOTE | 2017-04-12 06:24 | XR ---
EXAMINATION TYPE: XR chest 1V DATE OF EXAM: 04/12/2017 HISTORY: r/o pleural effusions. REFERENCE: Previous study dated 04/11/2017. FINDINGS: The heart is enlarged. Lungs appear clear. Pleural space are clear. IMPRESSION: CARDIOMEGALY.
[2017-04-12] MEDS ORDERED: DEXTROSE 5% IVPB ONE ×2 (08:00)
[2017-04-12] MEDS ORDERED: WATER IVPB ONE ×2 (08:00)
[2017-04-12] MEDS ORDERED: POTASSIUM CHLORIDE 20 MEQ in WATER FOR INJECTION 1 100ML.BAG IVPB ONE (08:00)
[2017-04-12] MEDS ORDERED: CALCIUM GLUCONATE IVPB ONE ×2 (08:00)
[2017-04-12] MEDS: D5W WITH KCL 20 MEQ/L 1,000 ML IV SCH ×4 (08:22→17:39)
[2017-04-12] MEDS: PANTOPRAZOLE 40 MG/10 ML VIAL IV SCH (08:22)
[2017-04-12] MEDS: ENOXAPARIN 30 MG/0.3 ML SYRINGE SQ SCH (08:22)
[2017-04-12] MEDS: DEXTROSE 5% IVPB SCH ×4 (08:24→21:12)
[2017-04-12] MEDS: LEVETIRACETAM IVPB SCH ×4 (08:24→21:12)
[2017-04-12] MEDS: WATER IVPB SCH ×4 (08:24→21:12)
--- NOTE | 2017-04-12 12:21 | P.PN ---
Subjective Progress Note Date: 04/12/17 Principal diagnosis: Altered mental status secondary to multiple drug overdose, urine drug screen positive for cocaine and opiates. This is a 61-year-old gentleman with a known history of SVT on verapamil, hypertension, alcoholism with previous seizures, pancreatitis, sleep apnea not utilizing CPAP in the outpatient setting, severe peng from his chest to his lower extremities from previous fall into it been of acid while working and the [place] area many years ago osteoarthritis with bilateral knee replacements , bipolar disorder, chronic and ongoing tobacco dependence, chronic and ongoing drug abuse. He was brought into the emergency room approximately 6:30 last evening after being found in just a T-shirt laying on a porch next to his apartment complex. His urine drug screen was positive for opiates and cocaine. Sodium 152, potassium 5.4, chloride 114, bicarb 9, BUN 97 creatinine 5.10 mL lactic acid 4.3, AST 132, total creatinine kinase 4631, TSH 0.333. EKG shows atrial fibrillation with ST and T-wave abnormalities of the inferior lateral leads along with LVH. Troponin 0.031. Computed tomography scan of the brain was negative for any acute intracranial abnormalities. Chest x-ray reveals no acute pulmonary process. He has been hypertensive systolic 200s over diastolic 100s. He's been initiated on Clevidipine currently at 16 mg per hour. He is also on D5 W with 3 A of bicarb at 100 mL per hour. He is seen today in consultation in the end emergency room. He remains quite obtunded. Grimacing to painful stimuli only. Current labs reveal a WBC 8.4, hemoglobin 11.1, sodium 148, potassium 3.4, chloride 116, carbon dioxide 12, BUN 93, creatinine 4.20. Most of his history is taken from his sister who is at the bedside. She states he's had drug abuse problems for many many years. Lactic acid down to 1.0. He Has been able to protect his airway. He is saturating up to 100% on room air. He is less tachycardic. No tachypnea. Core temperature 97.7. He has been initiated on Keppra. He is also on the CIWA protocol. Awaiting transfer to the intensive care unit. Patient was reevaluated today on 04/11/2017, he is presently in the intensive care unit, intermittently agitated, and one of his IVs was pulled out. Nursing staff had difficulty reestablishing another IV access. However his still has one IV access in place, and the patient is receiving Ativan and Haldol when necessary. Seems to be working well especially after adding Haldol. Patient remains on IV fluids as ordered yesterday, however his sodium is up to 151, chloride is 115, and bicarb is up from 12-16. WBC count is 7.9 hemoglobin is 11.5. Patient is on IV fluid in the form of D5W and sodium bicarbonate added. Presently in sinus rhythm, he was on Cardizem for atrial fibrillation. But he converted to sinus rhythm. Remains on bronchodilators, remains on Ativan, and on Haldol when necessary. Chest x-ray showed cardiomegaly but no evidence of active disease. Patient was seen by nephrology in consultation, and he was felt to have acute kidney injury secondary to acute tubular necrosis, and he was kept on aggressive IV hydration. Maintained also on sodium bicarb for his lactic acidosis. And his hypernatremia is being corrected with free water. Patient was reevaluated today on 04/12/2017, patient is hemodynamically stable, in no distress, however his mental status and overall intermittent episodes of agitation and restlessness remained the same. Patient does not seem to follow any instructions, it seems to be quite confused. His labs were all reviewed relatively normal CBC noted, however his sodium remains high at 150, BUN is 70 creatinine is 3.50. His IV fluid will be changed to D5W today, and we'll try to correct his sodium hopefully that will correct his mental status. In the meantime I recommended a neurological consultation on this patient for mental status change. Objective - Vital Signs Vital signs: Vital Signs Temp 97.0 F L 04/12/17 08:00 Pulse 55 L 04/12/17 10:30 Resp 28 H 04/12/17 10:30 BP 117/57 04/12/17 10:30 Pulse Ox 99 04/12/17 09:00 Intake & Output 04/11/17 04/12/17 04/12/17 18:59 06:59 18:59 Intake Total 2145.667 1730.0 114.5 Output Total 2155 1040 220 Balance -9.333 690.0 -105.5 Weight 59.9 kg 73.3 kg 73.3 kg Intake: IV 2060 120 Calcium Gluconate 2,000 100 mg In Dextrose 5% in Water 100 ml @ 100 mls/hr IVPB ONCE ONE Rx#: [id number] D5w with KCl 20 Meq/l 1, 210 70 000 ml @ 70 mls/hr IV . [id number] ANDREA Rx#:[id number] Dextrose 5% in Water 1, 1000 000 ml @ 100 mls/hr IV . [id number] ANDREA with Sodium Bicarb (1 Meq/ml) 150 ml Rx#:[id number] Magnesium Sulfate-D5w Pmx 200 1 gm In Dextrose/Water 1 100ml.bag @ 100 mls/hr IVPB Q1H ANRDEA Rx#: [id number] Potassium Chloride 10 meq 300 In Water For Injection 1 100ml.bag @ 100 mls/hr IVPB ONCE ONE Rx#: [id number] Potassium Chloride 20 meq 150 50 In Water For Injection 1 100ml.bag @ 50 mls/hr IVPB Q2H ANDREA Rx#: [id number] levETIRAcetam IV 1,000 mg 100 In Saline 1 100ml.bag @ 400 mls/hr IVPB Q12HR ANDREA Rx#:[id number] Intake, IV Titration 85.667 1610.0 114.5 Amount Clevidipine Butyrate 25 85.667 50.0 44.5 mg In Empty Bag 1 bag @ 1 MG/HR 2 mls/hr IV .Q24H ANDREA Rx#:[id number] D5w with KCl 20 Meq/l 1, 560 70 000 ml @ 70 mls/hr IV . [id number] ANDREA Rx#:[id number] Dextrose 5% in Water 1, 200 000 ml @ 100 mls/hr IV . [id number] ANDREA with Sodium Bicarb (1 Meq/ml) 150 ml Rx#:[id number] Magnesium Sulfate-D5w Pmx 200 1 gm In Dextrose/Water 1 100ml.bag @ 100 mls/hr IVPB Q1H ANDREA Rx#: [id number] Potassium Chloride 10 meq 50 In Water For Injection 1 100ml.bag @ 100 mls/hr IVPB ONCE ONE Rx#: [id number] Potassium Chloride 20 meq 100 In Water For Injection 1 100ml.bag @ 50 mls/hr IVPB ONCE STA Rx#: [id number] Potassium Chloride 20 meq 50 In Water For Injection 1 100ml.bag @ 50 mls/hr IVPB Q2H [facility] Rx#: [id number] levETIRAcetam IV 1,000 mg 400 In Dextrose 5% in Water 100 ml @ 400 mls/hr IVPB Q12HR [facility] Rx#:[id number] Output: Urine 2155 1040 220 Other: Voiding Method Indwelling Catheter Indwelling Catheter Indwelling Catheter - Exam GENERAL EXAM: Frail, cachectic. Lethargic, arousable, follows simple instructions intermittently HEAD: Normocephalic. EYES: Sluggish reaction of pupils, equal size. NOSE: Clear with pink turbinates. THROAT: No erythema or exudates. NECK: No masses, no JVD. CHEST: No chest wall deformity. LUNGS: Equal air entry with no crackles, wheeze, rhonchi or dullness. CVS: S1 and S2 normal with no audible murmur, regular rhythm. ABDOMEN: No hepatosplenomegaly, normal bowel sounds, no guarding or rigidity. SPINE: No scoliosis or deformity SKIN: No rashes, evidence of previous skin grafting of the chest and lower extremities. CENTRAL NERVOUS SYSTEM: Moving all 4 extremities. EXTREMITIES: There is no peripheral edema. No clubbing, no cyanosis. Peripheral pulses are intact. There are wounds of the toes. - Labs CBC & Chem 7: 04/12/17 05:26 04/12/17 05:26 Labs: Abnormal Lab Results - Last 24 Hours (Table) 04/11/17 04/11/17 04/12/17 Range/Units 13:45 23:18 05:26 RBC 4.01 L (4.30-5.90) m/uL Hgb 11.5 L (13.0-17.5) gm/dL Hct 36.5 L (39.0-53.0) % RDW 16.4 H (11.5-15.5) % Plt Count 120 L (150-450) k/uL Sodium 154 H 151 H (137-145) mmol/L Potassium 3.1 L (3.5-5.1) mmol/L Chloride 114 H 114 H (98-107) mmol/L Carbon Dioxide 21 L 21 L (22-30) mmol/L BUN 79 H 74 H (9-20) mg/dL Creatinine 3.80 H 3.60 H (0.66-1.25) mg/dL Glucose 119 H 101 H (74-99) mg/dL Calcium 6.7 L 6.7 L (8.4-10.2) mg/dL Ionized Calcium Lenora (4.5-5.3) mg/dL Magnesium (1.6-2.3) mg/dL 04/12/17 Range/Units 05:26 RBC (4.30-5.90) m/uL Hgb (13.0-17.5) gm/dL Hct (39.0-53.0) % RDW (11.5-15.5) % Plt Count (150-450) k/uL Sodium 150 H (137-145) mmol/L Potassium (3.5-5.1) mmol/L Chloride 112 H (98-107) mmol/L Carbon Dioxide (22-30) mmol/L BUN 70 H (9-20) mg/dL Creatinine 3.50 H (0.66-1.25) mg/dL Glucose 109 H (74-99) mg/dL Calcium 6.9 L (8.4-10.2) mg/dL Ionized Calcium Lenora 3.7 L (4.5-5.3) mg/dL Magnesium 2.4 H (1.6-2.3) mg/dL Microbiology - Last 24 Hours (Table) 04/09/17 20:30 Urine Culture - Final Urine,Catheterized Assessment and Plan Assessment: #1 Altered mental status suspected secondary to multiple drug overdose. Urine drug screen positive for cocaine and opiates. #2 Rhabdomyolysis secondary to suspected prolonged down time. CPK on admission was 4631, we'll continue to monitor CPK. #3 Acute on chronic renal failure with presenting creatinine of 5.10, currently 4.20. Acidosis. Currently on a bicarb drip. #4 Hyperkalemia with presenting potassium 5.4, currently 3.5 #5 Hypernatremia with presenting sodium 152, currently 150 #6 Atrial fibrillation with rapid ventricular response, currently in normal sinus rhythm. #7 Hypertensive urgency currently on Clevidipine at 16 mg per hour. #8 History of pancreatitis. #9 History of SVT. #10 Previous history of alcohol abuse with withdrawal seizures. Initiated on Keppra. #11 Chronic and ongoing tobacco dependence. #12 History of bipolar disorder. #13 positive hepatitis C IgG antibody. Recommendation: Continue to monitor closely, patient will be kept in the ICU today, continue Ativan and Haldol as needed, continue to monitor renal status daily, continue to monitor CPK daily, initiated a neurological consultation will continue to follow Time with Patient: Less than 30
[2017-04-12] MEDS: ERGOCALCIFEROL 50,000 UNIT CAP PO SCH (13:56)
[2017-04-12] MEDS: THIAMINE 100 MG TAB PO SCH ×2 (13:56→17:39)
--- NOTE | 2017-04-12 14:26 | PN ---
PROGRESS NOTE CHIEF COMPLAINT: 1. Acute renal failure. 2. Alcoholism. 3. Metabolic acidosis. 4. Renal failure. 5. Drug abuse. HISTORY OF PRESENT ILLNESS: This gentleman is a little bit more responsive and active. He is still lethargic, however. He continues to make urine. PHYSICAL EXAM: Chest is clear and the cardiac exam sounds normal. Abdomen is scaphoid. IMPRESSION: 1. Coma. 2. Mental status changes. 3. History of drug abuse. 4. Alcoholism. 5. Malnutrition. 6. Dehydration. 7. Acute renal failure. PLAN: He continues to become a little bit more alert. As he does so, he will require a sitter when he is moved to a regular floor as well as a discharge plan. Apparently, his HIV is negative. LAURE / ELVIS: [id number] /
--- NOTE | 2017-04-12 15:17 | PN ---
PROGRESS NOTE This is a gentleman who was brought in with hyperkalemia, rhabdomyolysis and had one episode of atrial fibrillation. Therefore we had seen him. He is now in sinus rhythm, not responding very well. Mentation remains an issue. Cardiac-segura he is stable hemodynamically. Vital signs are stable. He is in sinus rhythm. S1, S2 heard normally. Heart sounds are heard distantly. Lungs reveal diminished air entry. Abdomen and lower extremity exam is unchanged. This patient has no active arrhythmia at this time. We will be happy to re-evaluate him when the need arises. Thank you very much for the consult. MMODL / IJN: [id number] /
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
[2017-04-12 18:17] LABS: Glucose,Whole Blood 140 mg/dL (75-99)
--- NOTE | 2017-04-12 18:23 | PN ---
PROGRESS NOTE Patient is seen for followup for acute kidney injury and hypernatremia. The patient has also had uncontrolled hypertension with hypertensive urgency and maintained on Cleviprex drip. His drug screen was positive for cocaine and opiates. He is currently in withdrawal. Mentation has been slowly improving, but he remains quite agitated requiring Haldol. EXAMINATION: Patient is agitated. His eyes are closed, but he does open his eyes. According to nursing staff. Blood pressure 148/68, heart rate 68 per minute. He is afebrile. Examination of the heart: S1, S2. Examination lungs: Bilateral breath sounds are heard. Abdomen is soft, nontender. Examination lower extremity shows no evidence of edema. [employer] exam shows patient is moving all 4 extremities. Otherwise, a detailed exam cannot be performed. LABS: Show sodium 150, potassium 3.5, BUN 70, serum creatinine 3.5, hemoglobin 11.5 g/dL. ASSESSMENT: 1. Acute kidney injury, most likely acute tubular necrosis with intravascular volume depletion as well, currently nonoliguric with some improvement in renal function since admission. However, serum creatinine remains quite elevated. 2. Hypernatremia secondary to free water deficit with slow improvement. The D5W is appropriately increased to 125 mL an hour. 3. Hypokalemia, status post replacement. 4. Severe metabolic acidosis secondary to renal failure and lactic acidosis, currently improved. 5. Hypertension with hypertensive urgency, maintained on Cleviprex drip mainly associated with drug withdrawal and use of cocaine. Continue with clonidine patch. Patient is not able to take p.o. medications. May continue with Cleviprex drip. The dose is significantly decreased as compared to on admission. 6. Hypocalcemia. 25-hydroxy vitamin D level is pending. Patient has been receiving calcium supplements. 7. Rhabdomyolysis, slowly improving. PLAN: Continue D5W. Replace potassium and will replace the vitamin D once patient is able to take orally. MMODL / IJN: [id number] /
[2017-04-13] MEDS: CLEVIDIPINE BUTYRATE 25 MG in EMPTY BAG 1 BAG IV SCH ×2 (02:34→19:56)
[2017-04-13] MEDS: LORazepam 2 MG/ML INJ IV PRN ×4 (02:40→22:43)
[2017-04-13] MEDS: HALOPERIDOL LACTATE 5 MG/ML 1 ML VIAL IVP PRN ×2 (02:50→07:45)
[2017-04-13] MEDS: D5W WITH KCL 20 MEQ/L 1,000 ML IV SCH ×4 (03:44→19:53)
[2017-04-13 05:16] LABS: Anisocytosis Slight; Basophils % (A) 0 %; Eosinophils # (A) 0.4 k/uL (0-0.7); Eosinophils % (A) 5 %; HCT 39.9 % (39.0-53.0); HGB 12.6 gm/dL (13.0-17.5); Lymphocytes # (A) 1.6 k/uL (1.0-4.8); Lymphocytes % (A) 20 %; MCH 28.9 pg (25.0-35.0); MCHC 31.6 g/dL (31.0-37.0); MCV 91.5 fL (80.0-100.0); Mean Platelet Volume 8.4; Monocytes # (A) 0.3 k/uL (0-1.0); Monocytes % (A) 4 %; Neutrophils # (A) 5.7 k/uL (1.3-7.7); Neutrophils % (A) 70 %; Platelet Count 108 k/uL (150-450); RBC 4.37 m/uL (4.30-5.90); RDW 16.3 % (11.5-15.5); WBC 8.1 k/uL (3.8-10.6)
[2017-04-13 05:33] LABS: Calcium 7.7 mg/dL (8.4-10.2)
--- NOTE | 2017-04-13 06:40 | XR ---
EXAMINATION TYPE: XR chest 1V DATE OF EXAM: 04/13/2017 HISTORY: r/o pleural effusions. REFERENCE: Previous study dated 04/12/2017. FINDINGS: Lung volumes are prominent. Heart size upper limits of normal. Lungs appear clear. The righ t CP angle has been excluded from this study. IMPRESSION: 1. COPD. 2. BORDERLINE CARDIOMEGALY.
[2017-04-13] MEDS: DEXTROSE 5% IVPB SCH ×4 (08:03→21:47)
[2017-04-13] MEDS: WATER IVPB SCH ×4 (08:03→21:47)
[2017-04-13] MEDS: LEVETIRACETAM IVPB SCH ×4 (08:03→21:47)
[2017-04-13] MEDS: PANTOPRAZOLE 40 MG/10 ML VIAL IV SCH (08:03)
[2017-04-13] MEDS: ENOXAPARIN 30 MG/0.3 ML SYRINGE SQ SCH (08:04)
[2017-04-13] MEDS ORDERED: hydrALAZINE HCL 20 MG/ML 1 ML VIAL IVP PRN ×2 (08:44→15:30)
[2017-04-13] MEDS: cloNIDine 0.3 MG/24HR PATCH 1 PATCH PATCH TRANSDERM SCH (09:40)
[2017-04-13] MEDS: THIAMINE 100 MG TAB PO SCH ×2 (12:37→14:52)
--- NOTE | 2017-04-13 12:55 | P.PN ---
Subjective Progress Note Date: 04/13/17 Principal diagnosis: Altered mental status This is 61-year-old -[place] male continue be evaluated by the neurology service for altered mental status. Principal diagnosis was drug overdose. He was found lying on a porch in his apartment complex. He had an unknown downtime there. He was found to have rhabdomyolysis. This is currently being treated. Urine drug screen was positive for opiates and cocaine. CT of the brain showed no acute intracranial abnormalities. His blood pressure was quite elevated. He has a history of alcohol withdrawal seizures and has been started on IV Keppra. No seizures have been reported since his admission. He continues to be restless, agitated, but awake. She is still quite obtunded. Objective - Vital Signs Vital signs: Vital Signs Temp 97.5 F L 04/13/17 08:00 Pulse 56 L 04/13/17 11:30 Resp 18 04/13/17 11:30 BP 206/110 04/13/17 11:30 Pulse Ox 96 04/13/17 11:30 Intake & Output 04/12/17 04/13/17 04/13/17 18:59 06:59 18:59 Intake Total 1545.0 1724.534 478.467 Output Total 1160 1025 450 Balance 385.0 699.534 28.467 Weight 73.3 kg 55.4 kg Intake: IV 1425 1625 475 Calcium Gluconate 2,000 100 mg In Dextrose 5% in Water 100 ml @ 100 mls/hr IVPB ONCE ONE Rx#: [id number] D5w with KCl 20 Meq/l 1, 1125 1625 375 000 ml @ 125 mls/hr IV . Q8H [facility] Rx#:[id number] Potassium Chloride 20 meq 100 In Water For Injection 1 100ml.bag @ 50 mls/hr IVPB Q2H [facility] Rx#: [id number] levETIRAcetam IV 1,000 mg 100 100 In Saline 1 100ml.bag @ 400 mls/hr IVPB Q12HR [facility] Rx#:[id number] Intake, IV Titration 120.0 99.534 3.467 Amount Clevidipine Butyrate 25 50.0 99.534 3.467 mg In Empty Bag 1 bag @ 1 MG/HR 2 mls/hr IV .Q24H [facility] Rx#:[id number] D5w with KCl 20 Meq/l 1, 70 000 ml @ 125 mls/hr IV . Q8H [facility] Rx#:[id number] Output: Urine 1160 1025 450 Other: Voiding Method Indwelling Catheter Indwelling Catheter Indwelling Catheter - Constitutional General appearance: Present: thin - EENT Eyes: Present: EOMI, PERRLA. Absent: abnormal pupil, ptosis - Neck Neck: Present: normal ROM. Absent: rigidity - Respiratory Respiratory: negative: prolonged expiration, prolonged inspiration - Cardiovascular Rhythm: regular - Gastrointestinal General gastrointestinal: Absent: distended, tenderness - Neurologic Neurologic Comment(s): The patient is awake and restless. He is not speaking. There is no facial asymmetry. Spontaneous movements of bilateral upper and lower extremities with no observed weakness. No tremors or seizure-like activities are seen. - Labs CBC & Chem 7: 04/13/17 05:01 04/13/17 05:01 Labs: Abnormal Lab Results - Last 24 Hours (Table) 04/11/17 04/12/17 04/13/17 Range/Units 23:18 18:15 05:01 Hgb 12.6 L (13.0-17.5) gm/dL RDW 16.3 H (11.5-15.5) % Plt Count 108 L (150-450) k/uL Sodium (137-145) mmol/L Chloride (98-107) mmol/L Carbon Dioxide (22-30) mmol/L BUN (9-20) mg/dL Creatinine (0.66-1.25) mg/dL Glucose (74-99) mg/dL POC Glucose (mg/dL) 140 H (75-99) mg/dL Calcium (8.4-10.2) mg/dL Vitamin D 25-Hydroxy <4.2 L (30.0-100.0) ng/mL 04/13/17 Range/Units 05:01 Hgb (13.0-17.5) gm/dL RDW (11.5-15.5) % Plt Count (150-450) k/uL Sodium 147 H (137-145) mmol/L Chloride 113 H (98-107) mmol/L Carbon Dioxide 21 L (22-30) mmol/L BUN 60 H (9-20) mg/dL Creatinine 3.20 H (0.66-1.25) mg/dL Glucose 119 H (74-99) mg/dL POC Glucose (mg/dL) (75-99) mg/dL Calcium 7.7 L (8.4-10.2) mg/dL Vitamin D 25-Hydroxy (30.0-100.0) ng/mL Assessment and Plan (1) Altered mental status Current Visit: Yes Status: Acute Code(s): R41.82 - ALTERED MENTAL STATUS, UNSPECIFIED SNOMED Code(s): 563941780 (2) Encephalopathy Current Visit: Yes Status: Suspected Code(s): G93.40 - ENCEPHALOPATHY, UNSPECIFIED SNOMED Code(s): 62798445 (3) Atrial fibrillation with RVR Current Visit: Yes Status: Chronic Code(s): I48.91 - UNSPECIFIED ATRIAL FIBRILLATION SNOMED Code(s): 243264155910743 (4) Hypertensive urgency Current Visit: Yes Status: Acute Code(s): I16.0 - HYPERTENSIVE URGENCY SNOMED Code(s): 109154103 (5) Cocaine abuse Current Visit: No Status: Chronic Code(s): F14.10 - COCAINE ABUSE, UNCOMPLICATED SNOMED Code(s): 04370835 (6) Renal insufficiency Current Visit: No Status: Acute Code(s): N28.9 - DISORDER OF KIDNEY AND URETER, UNSPECIFIED SNOMED Code(s): 744742855 (7) SVT (supraventricular tachycardia) Current Visit: No Status: Acute Code(s): I47.1 - SUPRAVENTRICULAR TACHYCARDIA SNOMED Code(s): 5125391 Plan: This gentleman is encephalopathic due to multiple factors including his metabolic abnormalities and drug use. Recommend an EEG when he can cooperate with it. Continue working on reversing his metabolic abnormalities. Continue blood pressure control methods. If his mental status does not improve may consider a repeat CT of the head. For now no further neurological workup is needed. Continue Keppra current dose. We will continue to follow. I have performed a history and physical on the above patient. I have reviewed the above note, and agree.
[2017-04-13] MEDS ORDERED: LABETALOL 5 MG/ML VIAL MDV IVP PRN ×2 (13:00→14:24)
[2017-04-13] MEDS ORDERED: LISINOPRIL 20 MG TAB PO STA (13:10)
--- NOTE | 2017-04-13 13:22 | P.PN ---
Subjective Progress Note Date: 04/13/17 Principal diagnosis: Altered mental status secondary to multiple drug overdose, urine drug screen positive for cocaine and opiates. This is a 61-year-old gentleman with a known history of SVT on verapamil, hypertension, alcoholism with previous seizures, pancreatitis, sleep apnea not utilizing CPAP in the outpatient setting, severe peng from his chest to his lower extremities from previous fall into it been of acid while working and the [place] area many years ago osteoarthritis with bilateral knee replacements , bipolar disorder, chronic and ongoing tobacco dependence, chronic and ongoing drug abuse. He was brought into the emergency room approximately 6:30 last evening after being found in just a T-shirt laying on a porch next to his apartment complex. His urine drug screen was positive for opiates and cocaine. Sodium 152, potassium 5.4, chloride 114, bicarb 9, BUN 97 creatinine 5.10 mL lactic acid 4.3, AST 132, total creatinine kinase 4631, TSH 0.333. EKG shows atrial fibrillation with ST and T-wave abnormalities of the inferior lateral leads along with LVH. Troponin 0.031. Computed tomography scan of the brain was negative for any acute intracranial abnormalities. Chest x-ray reveals no acute pulmonary process. He has been hypertensive systolic 200s over diastolic 100s. He's been initiated on Clevidipine currently at 16 mg per hour. He is also on D5 W with 3 A of bicarb at 100 mL per hour. He is seen today in consultation in the end emergency room. He remains quite obtunded. Grimacing to painful stimuli only. Current labs reveal a WBC 8.4, hemoglobin 11.1, sodium 148, potassium 3.4, chloride 116, carbon dioxide 12, BUN 93, creatinine 4.20. Most of his history is taken from his sister who is at the bedside. She states he's had drug abuse problems for many many years. Lactic acid down to 1.0. He Has been able to protect his airway. He is saturating up to 100% on room air. He is less tachycardic. No tachypnea. Core temperature 97.7. He has been initiated on Keppra. He is also on the CIWA protocol. Awaiting transfer to the intensive care unit. Patient was reevaluated today on 04/11/2017, he is presently in the intensive care unit, intermittently agitated, and one of his IVs was pulled out. Nursing staff had difficulty reestablishing another IV access. However his still has one IV access in place, and the patient is receiving Ativan and Haldol when necessary. Seems to be working well especially after adding Haldol. Patient remains on IV fluids as ordered yesterday, however his sodium is up to 151, chloride is 115, and bicarb is up from 12-16. WBC count is 7.9 hemoglobin is 11.5. Patient is on IV fluid in the form of D5W and sodium bicarbonate added. Presently in sinus rhythm, he was on Cardizem for atrial fibrillation. But he converted to sinus rhythm. Remains on bronchodilators, remains on Ativan, and on Haldol when necessary. Chest x-ray showed cardiomegaly but no evidence of active disease. Patient was seen by nephrology in consultation, and he was felt to have acute kidney injury secondary to acute tubular necrosis, and he was kept on aggressive IV hydration. Maintained also on sodium bicarb for his lactic acidosis. And his hypernatremia is being corrected with free water. Patient was reevaluated today on 04/12/2017, patient is hemodynamically stable, in no distress, however his mental status and overall intermittent episodes of agitation and restlessness remained the same. Patient does not seem to follow any instructions, it seems to be quite confused. His labs were all reviewed relatively normal CBC noted, however his sodium remains high at 150, BUN is 70 creatinine is 3.50. His IV fluid will be changed to D5W today, and we'll try to correct his sodium hopefully that will correct his mental status. In the meantime I recommended a neurological consultation on this patient for mental status change. Patient was reevaluated today on 04/13/2017, patient continues to be on clevidipine drip, and his blood pressure is fluctuating. Hence I started the patient today on Apresoline 20 mg IV push every 6 hours as needed, and I recommended stopping clevidipine, and started clonidine patch. Patient is awake , restless, and he has spontaneous movement of upper and lower extremities, no seizure activity, no tremors. Patient remains nonverbal. Labs were reviewed sodium is better today 147 year and is 60 improved creatinine 3.20 improved. CPK is also improving down to 1493. Objective - Vital Signs Vital signs: Vital Signs Temp 97.5 F L 04/13/17 08:00 Pulse 60 04/13/17 12:51 Resp 18 04/13/17 11:30 BP 186/96 04/13/17 12:51 Pulse Ox 96 04/13/17 11:30 Intake & Output 04/12/17 04/13/17 04/13/17 18:59 06:59 18:59 Intake Total 1545.0 1724.534 478.467 Output Total 1160 1025 450 Balance 385.0 699.534 28.467 Weight 73.3 kg 55.4 kg Intake: IV 1425 1625 475 Calcium Gluconate 2,000 100 mg In Dextrose 5% in Water 100 ml @ 100 mls/hr IVPB ONCE ONE Rx#: [id number] D5w with KCl 20 Meq/l 1, 1125 1625 375 000 ml @ 125 mls/hr IV . Q8H [facility] Rx#:[id number] Potassium Chloride 20 meq 100 In Water For Injection 1 100ml.bag @ 50 mls/hr IVPB Q2H [facility] Rx#: [id number] levETIRAcetam IV 1,000 mg 100 100 In Saline 1 100ml.bag @ 400 mls/hr IVPB Q12HR [facility] Rx#:[id number] Intake, IV Titration 120.0 99.534 3.467 Amount Clevidipine Butyrate 25 50.0 99.534 3.467 mg In Empty Bag 1 bag @ 1 MG/HR 2 mls/hr IV .Q24H [facility] Rx#:[id number] D5w with KCl 20 Meq/l 1, 70 000 ml @ 125 mls/hr IV . Q8H [facility] Rx#:[id number] Output: Urine 1160 1025 450 Other: Voiding Method Indwelling Catheter Indwelling Catheter Indwelling Catheter - Exam GENERAL EXAM: Frail, cachectic. Lethargic, arousable, not following any instructions today. HEAD: Normocephalic. EYES: Sluggish reaction of pupils, equal size. NOSE: Clear with pink turbinates. THROAT: No erythema or exudates. NECK: No masses, no JVD. CHEST: No chest wall deformity. LUNGS: Equal air entry with no crackles, wheeze, rhonchi or dullness. CVS: S1 and S2 normal with no audible murmur, regular rhythm. ABDOMEN: No hepatosplenomegaly, normal bowel sounds, no guarding or rigidity. SPINE: No scoliosis or deformity SKIN: No rashes, evidence of previous skin grafting of the chest and lower extremities. CENTRAL NERVOUS SYSTEM: Moving all 4 extremities. Awake, restless, nonverbal, no tremors or seizure activities noted. EXTREMITIES: There is no peripheral edema. No clubbing, no cyanosis. Peripheral pulses are intact. There are wounds of the toes. - Labs CBC & Chem 7: 04/13/17 05:01 04/13/17 05:01 Labs: Abnormal Lab Results - Last 24 Hours (Table) 04/11/17 04/12/17 04/13/17 Range/Units 23:18 18:15 05:01 Hgb 12.6 L (13.0-17.5) gm/dL RDW 16.3 H (11.5-15.5) % Plt Count 108 L (150-450) k/uL Sodium (137-145) mmol/L Chloride (98-107) mmol/L Carbon Dioxide (22-30) mmol/L BUN (9-20) mg/dL Creatinine (0.66-1.25) mg/dL Glucose (74-99) mg/dL POC Glucose (mg/dL) 140 H (75-99) mg/dL Calcium (8.4-10.2) mg/dL Vitamin D 25-Hydroxy <4.2 L (30.0-100.0) ng/mL 04/13/17 Range/Units 05:01 Hgb (13.0-17.5) gm/dL RDW (11.5-15.5) % Plt Count (150-450) k/uL Sodium 147 H (137-145) mmol/L Chloride 113 H (98-107) mmol/L Carbon Dioxide 21 L (22-30) mmol/L BUN 60 H (9-20) mg/dL Creatinine 3.20 H (0.66-1.25) mg/dL Glucose 119 H (74-99) mg/dL POC Glucose (mg/dL) (75-99) mg/dL Calcium 7.7 L (8.4-10.2) mg/dL Vitamin D 25-Hydroxy (30.0-100.0) ng/mL Assessment and Plan Assessment: #1 Altered mental status suspected secondary to multiple drug overdose. Urine drug screen positive for cocaine and opiates. Acute metabolic encephalopathy #2 Rhabdomyolysis secondary to suspected prolonged down time. CPK on admission was 4631, we'll continue to monitor CPK. Improving #3 Acute on chronic renal failure with presenting creatinine of 5.10, currently 4.20. Acidosis. Sodium bicarb drip, patient is now on D5W #4 Hyperkalemia with presenting potassium 5.4, currently 3.5 #5 Hypernatremia with presenting sodium 152, currently 147 #6 Atrial fibrillation with rapid ventricular response, currently in normal sinus rhythm. #7 Hypertensive urgency currently on clonidine and Apresoline #8 History of pancreatitis. #9 History of SVT. #10 Previous history of alcohol abuse with withdrawal seizures. Initiated on Keppra. #11 Chronic and ongoing tobacco dependence. #12 History of bipolar disorder. #13 positive hepatitis C IgG antibody. Recommendation: Continue present supportive care measures, blood pressure will be addressed with IV Apresoline and clonidine patch. Will transfer the patient out of the ICU today, neurology is following, I would follow on when necessary basis. Time with Patient: Less than 30
[2017-04-13 14:41] LABS: Calcium 7.9 mg/dL (8.4-10.2); Potassium 3.9 mmol/L (3.5-5.1)
[2017-04-13 14:52] LABS: Anisocytosis Slight; Basophils % (A) 0 %; Eosinophils # (A) 0.4 k/uL (0-0.7); Eosinophils % (A) 5 %; HCT 36.3 % (39.0-53.0); HGB 11.7 gm/dL (13.0-17.5); Lymphocytes # (A) 1.7 k/uL (1.0-4.8); Lymphocytes % (A) 20 %; MCH 29.5 pg (25.0-35.0); MCHC 32.2 g/dL (31.0-37.0); MCV 91.4 fL (80.0-100.0); Mean Platelet Volume 7.9; Monocytes # (A) 0.3 k/uL (0-1.0); Monocytes % (A) 4 %; Neutrophils # (A) 5.9 k/uL (1.3-7.7); Neutrophils % (A) 69 %; Platelet Count 102 k/uL (150-450); RBC 3.97 m/uL (4.30-5.90); RDW 16.3 % (11.5-15.5); WBC 8.6 k/uL (3.8-10.6)
[2017-04-13] MEDS ORDERED: hydrALAZINE HCL 50 MG TAB PO SCH (16:00)
--- NOTE | 2017-04-13 16:01 | PN ---
PROGRESS NOTE Patient is seen for followup for acute kidney injury, severe hypernatremia. He was admitted to the hospital with mental status changes and unresponsiveness. Patient also was found to have rhabdomyolysis. His urine drug screen was positive for cocaine and opiates. He had hypertensive urgency and was maintained on Cleviprex drip for almost 2- 3 days. The patient has been transferred out of the ICU. He is currently on selective. He has a sitter. He remains quite agitated requiring Haldol and Ativan. EXAMINATION: Patient is awake. He is agitated. He is not in any acute distress. Blood pressures have been high with systolic around 170 mmHg. Heart rate is 65 per minute. He is afebrile. Examination of the heart S1, S2. Examination of the lungs bilateral breath sounds are heard. Abdomen is soft, nontender. Examination lower extremities shows no evidence of edema. LABS: Sodium 146, potassium 3.9, chloride 111, CO2 is 19, BUN 55, serum creatinine 2.9, hemoglobin 11.7 g/dL. Serum calcium was 7.9. ASSESSMENT: 1. Acute kidney injury, most likely acute tubular necrosis with intravascular volume depletion as well. Currently maintained on IV fluids and renal function is slowly improving. The patient has an indwelling Alonzo catheter. Continue with the IV fluids. 2. Hypernatremia associated with free water deficit, currently on D5W at 125 mL an hour, which we can continue. 3. Hypertensive urgency status post Cleviprex drip. We will maintain the patient on labetalol and hydralazine. He is also on a clonidine patch at 0.3 mg. 4. History of seizures. 5. Rhabdomyolysis. 6. Altered mentation secondary to substance abuse, some degree of withdrawal. 7. Positive hepatitis C, IgG antibody. 8. Atrial fibrillation with RVR, currently normal sinus rhythm. PLAN: Add hydralazine to the labetalol IV p.r.n. continue with clonidine and repeat labs in a.m. I will continue with the D5W at 125 mL an hour. MMODL / IJN: [id number] /
[2017-04-13 19:21] LABS: Glucose,Whole Blood 129 mg/dL (75-99)
[2017-04-14] MEDS: CLEVIDIPINE BUTYRATE 25 MG in EMPTY BAG 1 BAG IV SCH (01:32)
[2017-04-14] MEDS: HYDROmorphone 0.5 MG/0.5 ML SYRINGE IVP PRN ×3 (04:04→19:55)
[2017-04-14] MEDS: D5W WITH KCL 20 MEQ/L 1,000 ML IV SCH ×3 (04:11→17:25)
[2017-04-14 04:52] LABS: Anisocytosis Slight; Basophils % (A) 0 %; Eosinophils # (A) 0.5 k/uL (0-0.7); Eosinophils % (A) 7 %; HCT 39.2 % (39.0-53.0); HGB 12.1 gm/dL (13.0-17.5); Lymphocytes # (A) 1.6 k/uL (1.0-4.8); Lymphocytes % (A) 22 %; MCH 28.5 pg (25.0-35.0); MCHC 30.8 g/dL (31.0-37.0); MCV 92.4 fL (80.0-100.0); Mean Platelet Volume 8.1; Monocytes # (A) 0.2 k/uL (0-1.0); Monocytes % (A) 3 %; Neutrophils # (A) 4.9 k/uL (1.3-7.7); Neutrophils % (A) 68 %; Platelet Count 102 k/uL (150-450); RBC 4.24 m/uL (4.30-5.90); RDW 16.2 % (11.5-15.5); WBC 7.3 k/uL (3.8-10.6)
[2017-04-14 05:07] LABS: Calcium 8.3 mg/dL (8.4-10.2); Magnesium 1.7 mg/dL (1.6-2.3)
[2017-04-14 05:14] LABS: Potassium 3.9 mmol/L (3.5-5.1)
[2017-04-14] MEDS: MAGNESIUM SULFATE-D5W PMX 1 GM in DEXTROSE/WATER 1 100ML.BAG IVPB SCH ×2 (06:52→08:19)
--- NOTE | 2017-04-14 07:40 | P.PN ---
Subjective Patient is seen in follow-up for acute kidney injury. Renal function is improving with creatinine down to 2.5 today. Sodium level is also down to 143. He is not able to tolerate oral intake at this time. Speech evaluation scheduled for today. He was quite restless last night. Blood pressure was well -controlled overnight. He is nonoliguric. Vital signs are stable. General: The patient appeared well nourished and normally developed. HEENT: Head exam is unremarkable. Neck is without jugular venous distension. LUNGS: Lungs are clear to auscultation and percussion. Breath sounds decreased. HEART: Rate and Rhythm are regular. First and second heart sounds normal. No murmurs, rubs or gallops. ABDOMEN: Abdominal exam reveals normal bowel sounds. Non-tender and non- distended. No evidence of peritonitis. EXTREMITITES: No clubbing, cyanosis, or edema. Objective - Vital Signs Vital signs: Vital Signs Temp 96.9 F L 04/14/17 04:00 Pulse 52 L 04/14/17 07:00 Resp 16 04/14/17 07:00 BP 151/84 04/14/17 07:00 Pulse Ox 93 L 04/14/17 07:00 Intake & Output 04/13/17 04/14/17 04/14/17 18:59 06:59 18:59 Intake Total 123.276 9373.433 2.733 Output Total 975 1325 Balance -496.533 237.433 2.733 Intake: IV 475 1500 D5w with KCl 20 Meq/l 1, 375 1500 000 ml @ 125 mls/hr IV . Q8H [facility] Rx#:[id number] levETIRAcetam IV 1,000 mg 100 In Saline 1 100ml.bag @ 400 mls/hr IVPB Q12HR [facility] Rx#:[id number] Intake, IV Titration 3.467 62.433 2.733 Amount Clevidipine Butyrate 25 3.467 mg In Empty Bag 1 bag @ 1 MG/HR 2 mls/hr IV .Q24H [facility] Rx#:[id number] Clevidipine Butyrate 25 62.433 2.733 mg In Empty Bag 1 bag @ 1 MG/HR 2 mls/hr IV .Q24H [facility] Rx#:[id number] Output: Urine 975 1325 Other: Voiding Method Indwelling Catheter Indwelling Catheter - Labs CBC & Chem 7: 04/14/17 04:36 04/14/17 04:36 Labs: Abnormal Lab Results - Last 24 Hours (Table) 04/13/17 04/13/17 04/13/17 Range/Units 13:29 13:29 19:19 RBC 3.97 L (4.30-5.90) m/uL Hgb 11.7 L (13.0-17.5) gm/dL Hct 36.3 L (39.0-53.0) % MCHC (31.0-37.0) g/dL RDW 16.3 H (11.5-15.5) % Plt Count 102 L (150-450) k/uL Sodium 146 H (137-145) mmol/L Chloride 111 H (98-107) mmol/L Carbon Dioxide 19 L (22-30) mmol/L BUN 55 H (9-20) mg/dL Creatinine 2.90 H (0.66-1.25) mg/dL Glucose 102 H (74-99) mg/dL POC Glucose (mg/dL) 129 H (75-99) mg/dL Calcium 7.9 L (8.4-10.2) mg/dL 04/14/17 04/14/17 Range/Units 04:36 04:36 RBC 4.24 L (4.30-5.90) m/uL Hgb 12.1 L (13.0-17.5) gm/dL Hct (39.0-53.0) % MCHC 30.8 L (31.0-37.0) g/dL RDW 16.2 H (11.5-15.5) % Plt Count 102 L (150-450) k/uL Sodium (137-145) mmol/L Chloride 109 H (98-107) mmol/L Carbon Dioxide 18 L (22-30) mmol/L BUN 48 H (9-20) mg/dL Creatinine 2.50 H (0.66-1.25) mg/dL Glucose 111 H (74-99) mg/dL POC Glucose (mg/dL) (75-99) mg/dL Calcium 8.3 L (8.4-10.2) mg/dL Assessment and Plan Plan: Assessment: #1. Nonoliguric acute kidney injury secondary to ATN secondary to intravascular volume depletion and cocaine abuse. Renal function improving with creatinine down to 2.5 today. #2. Hypernatremia secondary to lack of oral water intake and free water deficit. Sodium level down to 143 today. #3. Metabolic acidosis secondary to acute kidney injury and IV fluids. #4. Hepatitis C IgG antibody reactive. He does have proteinuria on urinalysis which is likely nonspecific in the setting of acute kidney injury. He only had trace proteinuria in December 2016. Once GFR returns to baseline, will quantify proteinuria to rule out hep C induced GN. #5. History of cocaine abuse. #6. Benign hypertension with component of cocaine withdrawal. Better controlled with current meds overnight. Plan: Decrease D5W to 100 mL an hour. Recheck sodium level at 6 PM today. Speech evaluation today. Maintain current antihypertensives. Continue to monitor renal function and urine output. Avoid nephrotoxic agents and hypotensive episodes.
[2017-04-14] MEDS: LEVETIRACETAM IVPB SCH ×4 (09:17→20:53)
[2017-04-14] MEDS: WATER IVPB SCH ×4 (09:17→20:53)
[2017-04-14] MEDS: DEXTROSE 5% IVPB SCH ×4 (09:17→20:53)
[2017-04-14] MEDS: PANTOPRAZOLE 40 MG/10 ML VIAL IV SCH (09:17)
[2017-04-14] MEDS: ENOXAPARIN 30 MG/0.3 ML SYRINGE SQ SCH (09:17)
--- NOTE | 2017-04-14 09:48 | XR ---
EXAMINATION TYPE: XR chest 1V DATE OF EXAM: 04/14/2017 COMPARISON: 04/13/[address] 07/17/2012 HISTORY: 61-year-old male NG tube placement TECHNIQUE: Single frontal view of the chest is obtained. FINDINGS: NG tube is satisfactory. Heart upper limits of normal in size. Mild elongation of the thoracic aorta. Right paratracheal density is unchanged and appears to correspond to ectatic great vessels when nicholas elated with 2013 CT. Otherwise, lungs appear clear without pleural effusion. IMPRESSION: Borderline heart size. No acute process seen.
[2017-04-14] MEDS: THIAMINE 100 MG TAB PO SCH ×2 (12:42→16:53)
--- NOTE | 2017-04-14 12:57 | P.PN ---
Subjective Progress Note Date: 04/14/17 Principal diagnosis: Altered mental status secondary to multiple drug overdose, urine drug screen positive for cocaine and opiates. This is a 61-year-old gentleman with a known history of SVT on verapamil, hypertension, alcoholism with previous seizures, pancreatitis, sleep apnea not utilizing CPAP in the outpatient setting, severe peng from his chest to his lower extremities from previous fall into it been of acid while working and the [place] area many years ago osteoarthritis with bilateral knee replacements , bipolar disorder, chronic and ongoing tobacco dependence, chronic and ongoing drug abuse. He was brought into the emergency room approximately 6:30 last evening after being found in just a T-shirt laying on a porch next to his apartment complex. His urine drug screen was positive for opiates and cocaine. Sodium 152, potassium 5.4, chloride 114, bicarb 9, BUN 97 creatinine 5.10 mL lactic acid 4.3, AST 132, total creatinine kinase 4631, TSH 0.333. EKG shows atrial fibrillation with ST and T-wave abnormalities of the inferior lateral leads along with LVH. Troponin 0.031. Computed tomography scan of the brain was negative for any acute intracranial abnormalities. Chest x-ray reveals no acute pulmonary process. He has been hypertensive systolic 200s over diastolic 100s. He's been initiated on Clevidipine currently at 16 mg per hour. He is also on D5 W with 3 A of bicarb at 100 mL per hour. He is seen today in consultation in the end emergency room. He remains quite obtunded. Grimacing to painful stimuli only. Current labs reveal a WBC 8.4, hemoglobin 11.1, sodium 148, potassium 3.4, chloride 116, carbon dioxide 12, BUN 93, creatinine 4.20. Most of his history is taken from his sister who is at the bedside. She states he's had drug abuse problems for many many years. Lactic acid down to 1.0. He Has been able to protect his airway. He is saturating up to 100% on room air. He is less tachycardic. No tachypnea. Core temperature 97.7. He has been initiated on Keppra. He is also on the CIWA protocol. Awaiting transfer to the intensive care unit. Patient was reevaluated today on 04/11/2017, he is presently in the intensive care unit, intermittently agitated, and one of his IVs was pulled out. Nursing staff had difficulty reestablishing another IV access. However his still has one IV access in place, and the patient is receiving Ativan and Haldol when necessary. Seems to be working well especially after adding Haldol. Patient remains on IV fluids as ordered yesterday, however his sodium is up to 151, chloride is 115, and bicarb is up from 12-16. WBC count is 7.9 hemoglobin is 11.5. Patient is on IV fluid in the form of D5W and sodium bicarbonate added. Presently in sinus rhythm, he was on Cardizem for atrial fibrillation. But he converted to sinus rhythm. Remains on bronchodilators, remains on Ativan, and on Haldol when necessary. Chest x-ray showed cardiomegaly but no evidence of active disease. Patient was seen by nephrology in consultation, and he was felt to have acute kidney injury secondary to acute tubular necrosis, and he was kept on aggressive IV hydration. Maintained also on sodium bicarb for his lactic acidosis. And his hypernatremia is being corrected with free water. Patient was reevaluated today on 04/12/2017, patient is hemodynamically stable, in no distress, however his mental status and overall intermittent episodes of agitation and restlessness remained the same. Patient does not seem to follow any instructions, it seems to be quite confused. His labs were all reviewed relatively normal CBC noted, however his sodium remains high at 150, BUN is 70 creatinine is 3.50. His IV fluid will be changed to D5W today, and we'll try to correct his sodium hopefully that will correct his mental status. In the meantime I recommended a neurological consultation on this patient for mental status change. Patient was reevaluated today on 04/13/2017, patient continues to be on clevidipine drip, and his blood pressure is fluctuating. Hence I started the patient today on Apresoline 20 mg IV push every 6 hours as needed, and I recommended stopping clevidipine, and started clonidine patch. Patient is awake , restless, and he has spontaneous movement of upper and lower extremities, no seizure activity, no tremors. Patient remains nonverbal. Labs were reviewed sodium is better today 147 year and is 60 improved creatinine 3.20 improved. CPK is also improving down to 1493. Patient was reevaluated today on 04/14/2017, patient was transferred out of the ICU yesterday, however his blood pressure could not be controlled with medications on the floor, and we had to bring him back to the ICU for clevidipine drip. He is presently on clevidipine, but I was able to establish a nasogastric tube in this patient, and we'll start aggressive therapy with oral medications for his blood pressure, and likely discontinue clevidipine. Patient is already on clonidine patch, I have added hydralazine via nasogastric tube, Norvasc, and we will gradually taper down and hopefully discontinue clevidipine. Clinically the patient is about the same, opens eyes, but does not follow instructions. His labs were reviewed sodium is better BUN is better creatinine is better down to 2.50. Of the labs were unremarkable. Patient remains on room air, O2 saturation is 100%. Blood pressure at present is 160/ 77. Objective - Vital Signs Vital signs: Vital Signs Temp 97.3 F L 04/14/17 12:00 Pulse 51 L 04/14/17 12:00 Resp 12 04/14/17 12:00 BP 160/77 04/14/17 12:00 Pulse Ox 100 04/14/17 12:00 Intake & Output 04/13/17 04/14/17 04/14/17 18:59 06:59 18:59 Intake Total 515.362 0768.433 564.633 Output Total 975 1325 365 Balance -496.533 237.433 199.633 Weight 58.5 kg Intake: IV 475 1500 500 D5w with KCl 20 Meq/l 1, 300 000 ml @ 100 mls/hr IV . Q10H [facility] Rx#:[id number] D5w with KCl 20 Meq/l 1, 375 1500 0 000 ml @ 125 mls/hr IV . Q8H [facility] Rx#:[id number] Magnesium Sulfate-D5w Pmx 200 1 gm In Dextrose/Water 1 100ml.bag @ 100 mls/hr IVPB Q1H [facility] Rx#: [id number] levETIRAcetam IV 1,000 mg 100 In Saline 1 100ml.bag @ 400 mls/hr IVPB Q12HR [facility] Rx#:[id number] Intake, IV Titration 3.467 62.433 4.633 Amount Clevidipine Butyrate 25 3.467 mg In Empty Bag 1 bag @ 1 MG/HR 2 mls/hr IV .Q24H [facility] Rx#:[id number] Clevidipine Butyrate 25 62.433 4.633 mg In Empty Bag 1 bag @ 1 MG/HR 2 mls/hr IV .Q24H [facility] Rx#:[id number] Tube Feeding 30 Other 30 Output: Urine 975 1325 365 Other: Voiding Method Indwelling Catheter Indwelling Catheter Indwelling Catheter - Exam GENERAL EXAM: Frail, cachectic. Opens eyes, does not follow instructions. HEAD: Normocephalic. EYES: PERRLA, EOMI. NOSE: Clear with pink turbinates. THROAT: No erythema or exudates. NECK: No masses, no JVD. CHEST: No chest wall deformity. LUNGS: Equal air entry with no crackles, wheeze, rhonchi or dullness. CVS: S1 and S2 normal with no audible murmur, regular rhythm. ABDOMEN: No hepatosplenomegaly, normal bowel sounds, no guarding or rigidity. SPINE: No scoliosis or deformity SKIN: No rashes, evidence of previous skin grafting of the chest and lower extremities. CENTRAL NERVOUS SYSTEM: Moving all 4 extremities. Awake, restless, nonverbal, no tremors or seizure activities noted. EXTREMITIES: There is no peripheral edema. No clubbing, no cyanosis. Peripheral pulses are intact. There are wounds of the toes. - Labs CBC & Chem 7: 04/14/17 04:36 04/14/17 04:36 Labs: Abnormal Lab Results - Last 24 Hours (Table) 04/13/17 04/13/17 04/13/17 Range/Units 13:29 13:29 19:19 RBC 3.97 L (4.30-5.90) m/uL Hgb 11.7 L (13.0-17.5) gm/dL Hct 36.3 L (39.0-53.0) % MCHC (31.0-37.0) g/dL RDW 16.3 H (11.5-15.5) % Plt Count 102 L (150-450) k/uL Sodium 146 H (137-145) mmol/L Chloride 111 H (98-107) mmol/L Carbon Dioxide 19 L (22-30) mmol/L BUN 55 H (9-20) mg/dL Creatinine 2.90 H (0.66-1.25) mg/dL Glucose 102 H (74-99) mg/dL POC Glucose (mg/dL) 129 H (75-99) mg/dL Calcium 7.9 L (8.4-10.2) mg/dL 04/14/17 04/14/17 Range/Units 04:36 04:36 RBC 4.24 L (4.30-5.90) m/uL Hgb 12.1 L (13.0-17.5) gm/dL Hct (39.0-53.0) % MCHC 30.8 L (31.0-37.0) g/dL RDW 16.2 H (11.5-15.5) % Plt Count 102 L (150-450) k/uL Sodium (137-145) mmol/L Chloride 109 H (98-107) mmol/L Carbon Dioxide 18 L (22-30) mmol/L BUN 48 H (9-20) mg/dL Creatinine 2.50 H (0.66-1.25) mg/dL Glucose 111 H (74-99) mg/dL POC Glucose (mg/dL) (75-99) mg/dL Calcium 8.3 L (8.4-10.2) mg/dL Assessment and Plan Assessment: #1 Altered mental status suspected secondary to multiple drug overdose. Urine drug screen positive for cocaine and opiates. Acute metabolic encephalopathy #2 Rhabdomyolysis secondary to suspected prolonged down time. CPK on admission was 4631, we'll continue to monitor CPK. Improving #3 Acute on chronic renal failure with presenting creatinine of 5.10, currently 4.20. Acidosis. Presently his creatinine is 2.50. #4 Hyperkalemia with presenting potassium 5.4, currently 3.9 #5 Hypernatremia with presenting sodium 152, currently 143 #6 Atrial fibrillation with rapid ventricular response, currently in normal sinus rhythm. #7 Hypertensive urgency currently on clonidine and Apresoline and Norvasc #8 History of pancreatitis. #9 History of SVT. #10 Previous history of alcohol abuse with withdrawal seizures. Initiated on Keppra. #11 Chronic and ongoing tobacco dependence. #12 History of bipolar disorder. #13 positive hepatitis C IgG antibody. Recommendation: Continue present supportive care measures, continue to monitor in the ICU for now until the blood pressure is better controlled. Recheck CPK level, continue vitamin D via nasogastric tube. Meds will be switched to nasogastric tube since the patient cannot swallow. Swallow evaluation was recommended, and it is being done at the time of this dictation. Time with Patient: Less than 30
--- NOTE | 2017-04-14 14:11 | PN ---
PROGRESS NOTE DATE OF SERVICE: 04/13/2017 CHIEF COMPLAINT: Semi coma, renal failure, hypertension. HISTORY OF PRESENT ILLNESS: This gentleman continues to struggle. He is at times alert and at other times not. Blood pressure continues to be quite high. PHYSICAL EXAM: He is semi comatose and agitated. Breath sounds are heard on both sides and the cardiac exam is normal. Blood pressure is 186/96. IMPRESSION: 1. Encephalopathy. 2. Alcoholism. 3. Cirrhosis. 4. Drug abuse. 5. Hypertension. 6. Renal failure. PLAN: Continue on current program and continue efforts to try to control hypertension. He will probably come to a further neurologic evaluation if he does not become more alert soon. MMODL / IJN: [id number] /
--- NOTE | 2017-04-14 14:29 | CDI ---
Last Revision, January 2017 Documentation Clarification Form Date: 04/14/2017 2:09:00 PM From: Betsy Melo RN, CCDS Admit Date: 04/09/2017 8:17:00 PM Patient Name: Heri Dennis Visit Number: [id number] ATTENTION: The Clinical Documentation Specialists (CDI) and [facility] Coding Staff appreciate your assistance in clarifying documentation. Please respond to the clarification below the line at the bottom and electronically sign. The CDI & [facility] Coding staff will review the response and follow-up if needed. Please note: Queries are made part of the Legal Health Record. If you have any questions, please contact the author of this message via ITS. Dr. Barry Malnutrition has been documented in 2/ progress notes and requires further specificity. History/Risk Factors: Hx of heroin and cocaine abuse, a/c renal failure, hypernatremia, hypertensive urgency, pancreatitis, etoh abuse w seizures, tobacco dependance, bipolar disorder, hepatitis c Clinical Indicators: Labs: Albumin/Total Protein: 9.2/5.1 Current BMI: 16.6 Insufficient energy intake: pt is NPO Weight Loss: Loss of subcutaneous fat & muscle mass: Dietary Notes: "Pt appears emaciated and underweight." Treatment: Dietary Consult: completed Tube Feeding: Vital High Protein @ 50 ml/hr Lab monitoring: am daily In your professional opinion, can you please clarify if these findings signify one of the following conditions? Mild Protein-Calorie Malnutrition Moderate Protein-Calorie Malnutrition Severe Protein-Calorie Malnutrition Other condition, please specify Unable to determine Please continue to document in your progress notes and discharge summary in order to capture severity of illness and risk of mortality. Include clinical findings that support your diagnosis. Moderate Protein-Calorie Malnutrition MTDD
--- NOTE | 2017-04-14 14:46 | CDI ---
Last Revision, January 2017 Documentation Clarification Form Date: 04/14/2017 2:32:00 PM From: Betsy Melo RN, CCDS Admit Date: 04/09/2017 8:17:00 PM Patient Name: Heri Dennis Visit Number: [id number] ATTENTION: The Clinical Documentation Specialists (CDI) and [facility] Coding Staff appreciate your assistance in clarifying documentation. Please respond to the clarification below the line at the bottom and electronically sign. The CDI & [facility] Coding staff will review the response and follow-up if needed. Please note: Queries are made part of the Legal Health Record. If you have any questions, please contact the author of this message via ITS. Dr. Barry Atrial fibrillation is documented in the Progress notes and requires further specificity. History/Risk Factors: Lactic acidosis, acute renal failure with rhabdo, ETOH, drug abuse, Atria Fib, HTN, IZABELLA Clinical Indicators: 04/12 Cardiology Consult: This is a gentleman who was brought in with hyperkalemia, rhabdomyolysis and had one episode of atrial fibrillation." EKG/telemetry: NSR Treatment: Lebetalol 10 mg IVP Q 6 hrs. PRN Consults: Cardiology saw pt. and signed off In your professional opinion, can you please clarify the type of atrial fibrillation, if known? Chronic/Permanent Paroxysmal Persistent Other, please specify Unable to determine Please continue to document in your progress notes and discharge summary in order to capture severity of illness and risk of mortality. Include clinical findings that support your diagnosis. Paroxysmal MTDD
--- NOTE | 2017-04-14 14:47 | P.PN ---
Subjective Progress Note Date: 04/14/17 Principal diagnosis: Altered mental status This is 61-year-old -[place] male continue be evaluated by the neurology service for altered mental status. Principal diagnosis was drug overdose. He was found lying on a porch in his apartment complex. He had an unknown downtime there. He was found to have rhabdomyolysis. This is currently being treated. Urine drug screen was positive for opiates and cocaine. CT of the brain showed no acute intracranial abnormalities. His blood pressure was quite elevated and he has now been admitted back to the ICU for this. He has a history of alcohol withdrawal seizures and has been started on IV Keppra. No seizures have been reported since his admission. He continues to be restless, agitated, but awake. He is a little more aware today. Objective - Vital Signs Vital signs: Vital Signs Temp 97.3 F L 04/14/17 12:00 Pulse 51 L 04/14/17 14:00 Resp 20 04/14/17 14:00 BP 142/71 04/14/17 14:00 Pulse Ox 94 L 04/14/17 14:00 Intake & Output 04/13/17 04/14/17 04/14/17 18:59 06:59 18:59 Intake Total 394.239 5065.433 824.633 Output Total 975 1325 450 Balance -496.533 237.433 374.633 Weight 58.5 kg Intake: IV 475 1500 700 D5w with KCl 20 Meq/l 1, 500 000 ml @ 100 mls/hr IV . Q10H [facility] Rx#:[id number] D5w with KCl 20 Meq/l 1, 375 1500 0 000 ml @ 125 mls/hr IV . Q8H [facility] Rx#:[id number] Magnesium Sulfate-D5w Pmx 200 1 gm In Dextrose/Water 1 100ml.bag @ 100 mls/hr IVPB Q1H [facility] Rx#: [id number] levETIRAcetam IV 1,000 mg 100 In Saline 1 100ml.bag @ 400 mls/hr IVPB Q12HR [facility] Rx#:[id number] Intake, IV Titration 3.467 62.433 4.633 Amount Clevidipine Butyrate 25 3.467 mg In Empty Bag 1 bag @ 1 MG/HR 2 mls/hr IV .Q24H [facility] Rx#:[id number] Clevidipine Butyrate 25 62.433 4.633 mg In Empty Bag 1 bag @ 1 MG/HR 2 mls/hr IV .Q24H [facility] Rx#:[id number] Tube Feeding 90 Other 30 Output: Urine 975 1325 450 Other: Voiding Method Indwelling Catheter Indwelling Catheter Indwelling Catheter - Constitutional General appearance: Present: no acute distress, thin - EENT Eyes: Present: EOMI, PERRLA. Absent: abnormal pupil, ptosis ENT: Present: hearing grossly normal - Neck Neck: Present: normal ROM. Absent: rigidity - Respiratory Respiratory: negative: prolonged expiration, prolonged inspiration - Cardiovascular Rhythm: regular - Neurologic Neurologic Comment(s): Patient is awake and drowsy. He is oriented to person and partially to place. There is no facial asymmetry. There is no lateralizing weakness. No tremors or seizure-like activities are seen. - Labs CBC & Chem 7: 04/14/17 04:36 04/14/17 04:36 Labs: Abnormal Lab Results - Last 24 Hours (Table) 04/13/17 04/13/17 04/13/17 Range/Units 13:29 13:29 19:19 RBC 3.97 L (4.30-5.90) m/uL Hgb 11.7 L (13.0-17.5) gm/dL Hct 36.3 L (39.0-53.0) % MCHC (31.0-37.0) g/dL RDW 16.3 H (11.5-15.5) % Plt Count 102 L (150-450) k/uL Sodium 146 H (137-145) mmol/L Chloride 111 H (98-107) mmol/L Carbon Dioxide 19 L (22-30) mmol/L BUN 55 H (9-20) mg/dL Creatinine 2.90 H (0.66-1.25) mg/dL Glucose 102 H (74-99) mg/dL POC Glucose (mg/dL) 129 H (75-99) mg/dL Calcium 7.9 L (8.4-10.2) mg/dL Creatine Kinase (55-170) U/L 04/14/17 04/14/17 04/14/17 Range/Units 04:36 04:36 04:36 RBC 4.24 L (4.30-5.90) m/uL Hgb 12.1 L (13.0-17.5) gm/dL Hct (39.0-53.0) % MCHC 30.8 L (31.0-37.0) g/dL RDW 16.2 H (11.5-15.5) % Plt Count 102 L (150-450) k/uL Sodium (137-145) mmol/L Chloride 109 H (98-107) mmol/L Carbon Dioxide 18 L (22-30) mmol/L BUN 48 H (9-20) mg/dL Creatinine 2.50 H (0.66-1.25) mg/dL Glucose 111 H (74-99) mg/dL POC Glucose (mg/dL) (75-99) mg/dL Calcium 8.3 L (8.4-10.2) mg/dL Creatine Kinase 571 H (55-170) U/L Assessment and Plan (1) Altered mental status Current Visit: Yes Status: Acute Code(s): R41.82 - ALTERED MENTAL STATUS, UNSPECIFIED SNOMED Code(s): 367535716 (2) Encephalopathy Current Visit: Yes Status: Suspected Code(s): G93.40 - ENCEPHALOPATHY, UNSPECIFIED SNOMED Code(s): 90670988 (3) Atrial fibrillation with RVR Current Visit: Yes Status: Chronic Code(s): I48.91 - UNSPECIFIED ATRIAL FIBRILLATION SNOMED Code(s): 470249170559990 (4) Hypertensive urgency Current Visit: Yes Status: Acute Code(s): I16.0 - HYPERTENSIVE URGENCY SNOMED Code(s): 339335087 (5) Cocaine abuse Current Visit: No Status: Chronic Code(s): F14.10 - COCAINE ABUSE, UNCOMPLICATED SNOMED Code(s): 90000331 (6) Renal insufficiency Current Visit: No Status: Acute Code(s): N28.9 - DISORDER OF KIDNEY AND URETER, UNSPECIFIED SNOMED Code(s): 774142276 (7) SVT (supraventricular tachycardia) Current Visit: No Status: Acute Code(s): I47.1 - SUPRAVENTRICULAR TACHYCARDIA SNOMED Code(s): 7656122 Plan: This gentleman is encephalopathic due to multiple factors including his metabolic abnormalities and drug use. Recommend an EEG when he can cooperate with it. I have ordered that today Continue working on reversing his metabolic abnormalities. Continue blood pressure control methods. If his mental status does not improve may consider a repeat CT of the head. For now no further neurological workup is needed. Continue Keppra current dose. We will continue to follow. I have performed a history and physical on the above patient. I have reviewed the above note, and agree.
[2017-04-14] MEDS: hydrALAZINE HCL 25 MG TAB NG-TUBE SCH ×2 (15:04→22:05)
--- NOTE | 2017-04-14 15:10 | CDI ---
Last Revision, January 2017 Documentation Clarification Form Date: 04/14/2017 2:49:00 PM From: Betsy Melo RN, CCDS Admit Date: 04/09/2017 8:17:00 PM Patient Name: Heri Dennis Visit Number: [id number] ATTENTION: The Clinical Documentation Specialists (CDI) and [facility] Coding Staff appreciate your assistance in clarifying documentation. Please respond to the clarification below the line at the bottom and electronically sign. The CDI & [facility] Coding staff will review the response and follow-up if needed. Please note: Queries are made part of the Legal Health Record. If you have any questions, please contact the author of this message via ITS. Dr. Jose Carreon History/Risk Factors: Chronic ETOH, Drug abuse, Rhabdo, Acute renal Failure with ATN, Atrial Fib Clinical Indicators: Current BUN: 97/93/88/86/74/70/60/55/44 CR: 5.1/4.2/*4.1/3.98/3.6/3.5/3.2/2.9/2.5 GFR: ///// Patients Baseline: BUN/CR/GFR: 26/1.6/53 04/14 Pulmonary Progress Notes: "#3 Acute on chronic renal failure with presenting creatinine of 5.10, currently 4.20." 04/14 Nephrology Progress Notes: "Nonoliguric acute kidney injury secondary to ATN secondary to intravascular volume depletion and cocaine abuse. Renal function improving with creatinine down to 2.5 today." Treatment: Patients medications include: Calcium Gluconate IVPB x3 doses, Catapres- TTS 0.3mg Patch q 7 days Zestril 40 mg po OT, IV Mag and KCL replacement IVF: 4L IVF Bolus followed by 100 cc/hr In order to capture the severity of condition, please clarify if the condition signifies: CKD Stage 1 (GFR > 90) CKD Stage 2 (GFR 60-89) CKD Stage 3 (GFR 30-59) CKD Stage 4 (GFR 15-29) CKD Stage 5 (GFR <15) ESRD Other, please specify Unable to determine Please continue to document in your progress notes and discharge summary in order to capture severity of illness and risk of mortality. Include clinical findings that support your diagnosis. MTDD
--- NOTE | 2017-04-14 15:41 | PN ---
PROGRESS NOTE Mr. Dennis finally has an NG tube. His drip is being decreased. His drip is being weaned off slowly. I am recommending Norvasc and hydralazine and Catapres patch and eventually Catapres patch can be taken off. He is in sinus rhythm, sinus bradycardia, no atrial fibrillation. BP control has improved. S1-S2 heard normally. Lungs reveal a fairly decent air entry. Rest of physical exam is unchanged. Patient apparently has been communicating, talking a bit today which is a significant improvement. MMODL / IJN: [id number] /
--- NOTE | 2017-04-14 17:26 | PN ---
PROGRESS NOTE . CHIEF COMPLAINTS: Encephalopathy, hypertension, renal failure, cirrhosis and drug addiction. HISTORY OF PRESENT ILLNESS: This gentleman's blood pressure did not come down and he was moved back into the intensive care unit and was restarted. PHYSICAL EXAM: He is only semi alert. Blood pressure is down to 123/70. Breath sounds are heard bilaterally and cardiac exam is unremarkable. IMPRESSION: 1. Malignant hypertension. 2. Encephalopathy. 3. Alcoholism. 4. Cirrhosis. 5. Renal failure. 6. Drug addiction. 7. Malnutrition. PLAN: Continue to follow. When this gentleman stabilizes, he will likely will require extended care based on his lack of neurologic recovery. MMODL / IJN: [id number] /
--- NOTE | 2017-04-14 19:02 | EEG ---
ELECTROENCEPHALOGRAM REPORT DATE OF SERVICE: 04/14/2017. REASON FOR TESTING: Altered mental status and history of seizures. CURRENT ANTIEPILEPTIC MEDICATIONS: Keppra. DESCRIPTION OF THE PROCEDURE: This EEG was performed using a 21 channel digital electroencephalograph, following international 10-20 system. DESCRIPTION OF THE RECORDING: From the beginning of the tracing, and with patient's eyes closed, the background rhythm was mostly consisting of 8 Hz alpha frequency in the posterior occipital leads. No obvious asymmetry is seen. Frequent muscle artifacts are seen. Photic stimulation was performed with a minimal driving response seen. No pathological waves were elicited. Rare sharp wave activity is seen mainly in the left temporal region. The patient remains awake throughout the tracing. No generalized epileptiform discharges were seen. His EKG lead showed a regular rate and rhythm. INTERPRETATION: This awake EEG is abnormal due to the presence of occasional sharp wave activity seen mainly in the left temporal region. No obvious generalized epileptiform discharges were seen. Clinical correlation is recommended. LAURE / ELVIS: [id number] /
[2017-04-14] MEDS: SODIUM CHLORIDE 0.45% 1,000 ML IV SCH (19:07)
[2017-04-14] MEDS: amLODIPine 5 MG TAB NG-TUBE SCH (21:23)
[2017-04-15] MEDS: HYDROmorphone 0.5 MG/0.5 ML SYRINGE IVP PRN ×3 (02:26→14:18)
[2017-04-15 04:27] LABS: Anisocytosis Slight; Basophils % (A) 0 %; Eosinophils # (A) 0.4 k/uL (0-0.7); Eosinophils % (A) 6 %; HGB 11.1 gm/dL (13.0-17.5); Hypochromasia Slight; Lymphocytes # (A) 1.5 k/uL (1.0-4.8); Lymphocytes % (A) 23 %; MCH 28.5 pg (25.0-35.0); MCHC 30.8 g/dL (31.0-37.0); MCV 92.8 fL (80.0-100.0); Mean Platelet Volume 8.1; Monocytes # (A) 0.2 k/uL (0-1.0); Monocytes % (A) 3 %; Neutrophils # (A) 4.5 k/uL (1.3-7.7); Neutrophils % (A) 68 %; RBC 3.88 m/uL (4.30-5.90); RDW 16.1 % (11.5-15.5); WBC 6.7 k/uL (3.8-10.6)
[2017-04-15 04:37] LABS: Calcium 8.4 mg/dL (8.4-10.2); Phosphorus 4.4 mg/dL (2.5-4.5); Potassium 4.1 mmol/L (3.5-5.1)
[2017-04-15 05:19] LABS: Poikilocytosis (M) Present
[2017-04-15 05:20] LABS: Platelet Count 93 k/uL (150-450); Target Cells Present
[2017-04-15] MEDS: SODIUM CHLORIDE 0.45% 1,000 ML IV SCH ×2 (07:44→15:24)
[2017-04-15] MEDS: amLODIPine 5 MG TAB NG-TUBE SCH ×2 (08:16→22:04)
[2017-04-15] MEDS: hydrALAZINE HCL 25 MG TAB NG-TUBE SCH (08:16)
[2017-04-15] MEDS: PANTOPRAZOLE 40 MG/10 ML VIAL IV SCH (08:16)
[2017-04-15] MEDS: ENOXAPARIN 30 MG/0.3 ML SYRINGE SQ SCH (08:16)
[2017-04-15] MEDS: DEXTROSE 5% IVPB SCH ×4 (08:17→22:03)
[2017-04-15] MEDS: WATER IVPB SCH ×4 (08:17→22:03)
[2017-04-15] MEDS: LEVETIRACETAM IVPB SCH ×4 (08:17→22:03)
[2017-04-15] MEDS: hydrALAZINE HCL 50 MG TAB NG-TUBE SCH ×3 (09:39→22:04)
--- NOTE | 2017-04-15 10:21 | PN ---
PROGRESS NOTE Mr. Dennis is in sinus bradycardia. His blood pressure control has improved. We will increase hydralazine from 25 to 50 mg t.i.d. Continue his Norvasc as before and hopefully we can discontinue the Catapres patch to later on. He is alert, answers a few questions, hemodynamically stable. The JVD is not evident. S1, S2 heard normally. Lungs revealed diminished air entry. Abdomen is soft, nontender. Lower extremities reveal diminished pulses. CENTRAL NERVOUS SYSTEM: Generalized weakness, but no motor or focal deficits. A detailed exam was not performed. MMODL / IJN: [id number] / TERRANCE
--- NOTE | 2017-04-15 10:37 | P.PN ---
Subjective Progress Note Date: 04/15/17 Principal diagnosis: Altered mental status secondary to multiple drug overdose, urine drug screen positive for cocaine and opiates. This is a 61-year-old gentleman with a known history of SVT on verapamil, hypertension, alcoholism with previous seizures, pancreatitis, sleep apnea not utilizing CPAP in the outpatient setting, severe peng from his chest to his lower extremities from previous fall into it been of acid while working and the [place] area many years ago osteoarthritis with bilateral knee replacements , bipolar disorder, chronic and ongoing tobacco dependence, chronic and ongoing drug abuse. He was brought into the emergency room approximately 6:30 last evening after being found in just a T-shirt laying on a porch next to his apartment complex. His urine drug screen was positive for opiates and cocaine. Sodium 152, potassium 5.4, chloride 114, bicarb 9, BUN 97 creatinine 5.10 mL lactic acid 4.3, AST 132, total creatinine kinase 4631, TSH 0.333. EKG shows atrial fibrillation with ST and T-wave abnormalities of the inferior lateral leads along with LVH. Troponin 0.031. Computed tomography scan of the brain was negative for any acute intracranial abnormalities. Chest x-ray reveals no acute pulmonary process. He has been hypertensive systolic 200s over diastolic 100s. He's been initiated on Clevidipine currently at 16 mg per hour. He is also on D5 W with 3 A of bicarb at 100 mL per hour. He is seen today in consultation in the end emergency room. He remains quite obtunded. Grimacing to painful stimuli only. Current labs reveal a WBC 8.4, hemoglobin 11.1, sodium 148, potassium 3.4, chloride 116, carbon dioxide 12, BUN 93, creatinine 4.20. Most of his history is taken from his sister who is at the bedside. She states he's had drug abuse problems for many many years. Lactic acid down to 1.0. He Has been able to protect his airway. He is saturating up to 100% on room air. He is less tachycardic. No tachypnea. Core temperature 97.7. He has been initiated on Keppra. He is also on the CIWA protocol. Awaiting transfer to the intensive care unit. Patient was reevaluated today on 04/11/2017, he is presently in the intensive care unit, intermittently agitated, and one of his IVs was pulled out. Nursing staff had difficulty reestablishing another IV access. However his still has one IV access in place, and the patient is receiving Ativan and Haldol when necessary. Seems to be working well especially after adding Haldol. Patient remains on IV fluids as ordered yesterday, however his sodium is up to 151, chloride is 115, and bicarb is up from 12-16. WBC count is 7.9 hemoglobin is 11.5. Patient is on IV fluid in the form of D5W and sodium bicarbonate added. Presently in sinus rhythm, he was on Cardizem for atrial fibrillation. But he converted to sinus rhythm. Remains on bronchodilators, remains on Ativan, and on Haldol when necessary. Chest x-ray showed cardiomegaly but no evidence of active disease. Patient was seen by nephrology in consultation, and he was felt to have acute kidney injury secondary to acute tubular necrosis, and he was kept on aggressive IV hydration. Maintained also on sodium bicarb for his lactic acidosis. And his hypernatremia is being corrected with free water. Patient was reevaluated today on 04/12/2017, patient is hemodynamically stable, in no distress, however his mental status and overall intermittent episodes of agitation and restlessness remained the same. Patient does not seem to follow any instructions, it seems to be quite confused. His labs were all reviewed relatively normal CBC noted, however his sodium remains high at 150, BUN is 70 creatinine is 3.50. His IV fluid will be changed to D5W today, and we'll try to correct his sodium hopefully that will correct his mental status. In the meantime I recommended a neurological consultation on this patient for mental status change. Patient was reevaluated today on 04/13/2017, patient continues to be on clevidipine drip, and his blood pressure is fluctuating. Hence I started the patient today on Apresoline 20 mg IV push every 6 hours as needed, and I recommended stopping clevidipine, and started clonidine patch. Patient is awake , restless, and he has spontaneous movement of upper and lower extremities, no seizure activity, no tremors. Patient remains nonverbal. Labs were reviewed sodium is better today 147 year and is 60 improved creatinine 3.20 improved. CPK is also improving down to 1493. Patient was reevaluated today on 04/14/2017, patient was transferred out of the ICU yesterday, however his blood pressure could not be controlled with medications on the floor, and we had to bring him back to the ICU for clevidipine drip. He is presently on clevidipine, but I was able to establish a nasogastric tube in this patient, and we'll start aggressive therapy with oral medications for his blood pressure, and likely discontinue clevidipine. Patient is already on clonidine patch, I have added hydralazine via nasogastric tube, Norvasc, and we will gradually taper down and hopefully discontinue clevidipine. Clinically the patient is about the same, opens eyes, but does not follow instructions. His labs were reviewed sodium is better BUN is better creatinine is better down to 2.50. Of the labs were unremarkable. Patient remains on room air, O2 saturation is 100%. Blood pressure at present is 160/ 77. Patient was reevaluated today on 04/15/2017, remains in the ICU, nasogastric tube remains in place, patient is receiving nutritional support anteriorly, and he is also getting his medications via nasogastric tube. His blood pressure seems to be better controlled, patient is off clevidipine. Seems to be more awake today, but remains confused. His labs were reviewed CBC is relatively normal. Basic metabolic profile is normal however his BUN is 50 and creatinine 2.18 steady and progressive improvement in his creatinine noted. Patient is not agitated anymore, not as restless as he was few days ago. He seems to be more pleasant and follows very simple instructions. Objective - Vital Signs Vital signs: Vital Signs Temp 97.6 F 04/15/17 08:00 Pulse 63 04/15/17 10:00 Resp 20 04/15/17 10:00 BP 144/45 04/15/17 10:00 Pulse Ox 99 04/15/17 10:00 Intake & Output 04/14/17 04/15/17 04/15/17 18:59 06:59 18:59 Intake Total 0844.399 2131 680 Output Total 573 510 265 Balance 839.966 880 415 Weight 58.5 kg 61.3 kg Intake: IV 1100 1200 400 D5w with KCl 20 Meq/l 1, 900 100 000 ml @ 100 mls/hr IV . Q10H [facility] Rx#:[id number] D5w with KCl 20 Meq/l 1, 0 000 ml @ 125 mls/hr IV . Q8H [facility] Rx#:[id number] Magnesium Sulfate-D5w Pmx 200 1 gm In Dextrose/Water 1 100ml.bag @ 100 mls/hr IVPB Q1H [facility] Rx#: [id number] Sodium Chloride 0.45% 1, 1100 400 000 ml @ 100 mls/hr IV . Q10H [facility] Rx#:[id number] Intake, IV Titration 12.966 100 Amount Clevidipine Butyrate 25 12.966 mg In Empty Bag 1 bag @ 1 MG/HR 2 mls/hr IV .Q24H [facility] Rx#:[id number] levETIRAcetam IV 1,000 mg 100 In Saline 1 100ml.bag @ 400 mls/hr IVPB Q12HR [facility] Rx#:[id number] Tube Feeding 240 190 150 Other 60 30 Output: Urine 573 510 265 Other: Voiding Method Indwelling Catheter Indwelling Catheter Indwelling Catheter - Exam GENERAL EXAM: Frail, cachectic. Opens eyes, confused, follows simple instructions only. Not as agitated as he was few days ago. HEAD: Normocephalic. EYES: PERRLA, EOMI. NOSE: Clear with pink turbinates. THROAT: No erythema or exudates. NECK: No masses, no JVD. CHEST: No chest wall deformity. LUNGS: Equal air entry with no crackles, wheeze, rhonchi or dullness. CVS: S1 and S2 normal with no audible murmur, regular rhythm. ABDOMEN: No hepatosplenomegaly, normal bowel sounds, no guarding or rigidity. SPINE: No scoliosis or deformity SKIN: No rashes, evidence of previous skin grafting of the chest and lower extremities. CENTRAL NERVOUS SYSTEM: Moving all 4 extremities. Awake, not as restless, bit more verbal, no tremors or seizure activities noted. EXTREMITIES: There is no peripheral edema. No clubbing, no cyanosis. Peripheral pulses are intact. There are wounds of the toes. - Labs CBC & Chem 7: 04/15/17 04:09 04/15/17 04:09 Labs: Abnormal Lab Results - Last 24 Hours (Table) 04/14/17 04/15/17 04/15/17 Range/Units 04:36 04:09 04:09 RBC 3.88 L (4.30-5.90) m/uL Hgb 11.1 L (13.0-17.5) gm/dL Hct 36.0 L (39.0-53.0) % MCHC 30.8 L (31.0-37.0) g/dL RDW 16.1 H (11.5-15.5) % Plt Count 93 L (150-450) k/uL Chloride 108 H (98-107) mmol/L Carbon Dioxide 19 L (22-30) mmol/L BUN 50 H (9-20) mg/dL Creatinine 2.18 H (0.66-1.25) mg/dL Creatine Kinase 571 H (55-170) U/L Assessment and Plan Assessment: #1 Altered mental status suspected secondary to multiple drug overdose. Urine drug screen positive for cocaine and opiates. Acute metabolic encephalopathy #2 Rhabdomyolysis secondary to suspected prolonged down time. CPK on admission was 4631, we'll continue to monitor CPK. Improving, CPK today is 571. #3 Acute on chronic renal failure with presenting creatinine of 5.10, creatinine today is 2.18 #5 Hypernatremia with presenting sodium 152, currently 139 #6 Atrial fibrillation with rapid ventricular response, currently in normal sinus rhythm. #7 Hypertensive urgency currently on clonidine and Apresoline and Norvasc #8 History of pancreatitis. #9 History of SVT. #10 Previous history of alcohol abuse with withdrawal seizures. Initiated on Keppra. #11 Chronic and ongoing tobacco dependence. #12 History of bipolar disorder. #13 positive hepatitis C IgG antibody. Recommendation: Continue present supportive care measures, continue blood pressure medications via nasogastric tube, pressor patient out of the ICU to a regular medical floor today, we'll continue to follow. Time with Patient: Less than 30
--- NOTE | 2017-04-15 11:44 | P.PN ---
Subjective Patient is seen in follow-up for acute kidney injury. Renal function is improving with creatinine down to 2.18 today. Sodium level is also down to 139. He is not able to tolerate oral intake at this time. He has an NG tube in place and is receiving tube feeds. Blood pressure was well-controlled overnight. He is nonoliguric. He is awake but remains confused. Vital signs are stable. General: The patient appeared well nourished and normally developed. HEENT: Head exam is unremarkable. Neck is without jugular venous distension. LUNGS: Lungs are clear to auscultation and percussion. Breath sounds decreased. HEART: Rate and Rhythm are regular. First and second heart sounds normal. No murmurs, rubs or gallops. ABDOMEN: Abdominal exam reveals normal bowel sounds. Non-tender and non- distended. No evidence of peritonitis. EXTREMITITES: No clubbing, cyanosis, or edema. Objective - Vital Signs Vital signs: Vital Signs Temp 97.6 F 04/15/17 08:00 Pulse 63 04/15/17 10:00 Resp 20 04/15/17 10:00 BP 144/45 04/15/17 10:00 Pulse Ox 99 04/15/17 10:00 Intake & Output 04/14/17 04/15/17 04/15/17 18:59 06:59 18:59 Intake Total 7099.983 2923 680 Output Total 573 510 265 Balance 839.966 880 415 Weight 58.5 kg 61.3 kg Intake: IV 1100 1200 400 D5w with KCl 20 Meq/l 1, 900 100 000 ml @ 100 mls/hr IV . Q10H [facility] Rx#:[id number] D5w with KCl 20 Meq/l 1, 0 000 ml @ 125 mls/hr IV . Q8H [facility] Rx#:[id number] Magnesium Sulfate-D5w Pmx 200 1 gm In Dextrose/Water 1 100ml.bag @ 100 mls/hr IVPB Q1H [facility] Rx#: [id number] Sodium Chloride 0.45% 1, 1100 400 000 ml @ 100 mls/hr IV . Q10H [facility] Rx#:[id number] Intake, IV Titration 12.966 100 Amount Clevidipine Butyrate 25 12.966 mg In Empty Bag 1 bag @ 1 MG/HR 2 mls/hr IV .Q24H [facility] Rx#:[id number] levETIRAcetam IV 1,000 mg 100 In Saline 1 100ml.bag @ 400 mls/hr IVPB Q12HR [facility] Rx#:[id number] Tube Feeding 240 190 150 Other 60 30 Output: Urine 573 510 265 Other: Voiding Method Indwelling Catheter Indwelling Catheter Indwelling Catheter - Labs CBC & Chem 7: 04/15/17 04:09 04/15/17 04:09 Labs: Abnormal Lab Results - Last 24 Hours (Table) 04/14/17 04/15/17 04/15/17 Range/Units 04:36 04:09 04:09 RBC 3.88 L (4.30-5.90) m/uL Hgb 11.1 L (13.0-17.5) gm/dL Hct 36.0 L (39.0-53.0) % MCHC 30.8 L (31.0-37.0) g/dL RDW 16.1 H (11.5-15.5) % Plt Count 93 L (150-450) k/uL Chloride 108 H (98-107) mmol/L Carbon Dioxide 19 L (22-30) mmol/L BUN 50 H (9-20) mg/dL Creatinine 2.18 H (0.66-1.25) mg/dL Creatine Kinase 571 H (55-170) U/L Assessment and Plan Plan: Assessment: #1. Nonoliguric acute kidney injury secondary to ATN secondary to intravascular volume depletion and cocaine abuse. Renal function improving with creatinine down to 2.18 today. #2. Hypernatremia secondary to lack of oral water intake and free water deficit. Sodium level down to 139 today. #3. Metabolic acidosis secondary to acute kidney injury and IV fluids. #4. Hepatitis C IgG antibody reactive. He does have proteinuria on urinalysis which is likely nonspecific in the setting of acute kidney injury. He only had trace proteinuria in December 2016. Once GFR returns to baseline, will quantify proteinuria to rule out hep C induced GN. #5. History of cocaine abuse. #6. Benign hypertension with component of cocaine withdrawal. Better controlled with current meds overnight. Plan: Decrease rate of half-normal saline to 50 mL an hour. Continue with tube feeds. Maintain current antihypertensives. Continue to monitor renal function and urine output. Avoid nephrotoxic agents and hypotensive episodes. Stable from nephrology standpoint to be transferred out of the intensive care unit.
[2017-04-15] MEDS: THIAMINE 100 MG TAB PO SCH ×2 (12:47→16:13)
[2017-04-15] MEDS: ERGOCALCIFEROL 50,000 UNIT CAP PO SCH (12:48)
[2017-04-15 15:26] VITALS: BMI 17.3
--- NOTE | 2017-04-15 15:44 | P.PN ---
Subjective Progress Note Date: 04/15/17 Patient is a 61-year-old -[place] male who is being followed by the neurology service for altered mental status. Patient was found lying on a porch at his apartment complex. His downtime is unknown. He was found to have rhabdomyolysis. Patient's urine drug screen was positive for opiates and cocaine. Patient was diagnosed with drug overdose. CT of the brain showed no acute intracranial abnormalities. Patient was hypertensive and was admitted to the ICU. Patient does have history of alcohol withdrawal seizure activity. Patient is on IV Keppra and has had no further seizures since admission. Staff reports patient becomes restless and agitated at times. At the time of my evaluation, patient is resting comfortably in bed and appears to be in no acute distress. Objective - Vital Signs Vital signs: Vital Signs Temp 97.6 F 04/15/17 15:00 Pulse 55 L 04/15/17 15:00 Resp 12 04/15/17 15:00 BP 152/84 04/15/17 15:00 Pulse Ox 98 04/15/17 15:00 Intake & Output 04/14/17 04/15/17 04/15/17 18:59 06:59 18:59 Intake Total 2859.464 2723 1385 Output Total 573 510 565 Balance 839.966 880 820 Weight 58.5 kg 61.3 kg Intake: IV 1100 1200 800 D5w with KCl 20 Meq/l 1, 900 100 000 ml @ 100 mls/hr IV . Q10H [facility] Rx#:[id number] D5w with KCl 20 Meq/l 1, 0 000 ml @ 125 mls/hr IV . Q8H [facility] Rx#:[id number] Magnesium Sulfate-D5w Pmx 200 1 gm In Dextrose/Water 1 100ml.bag @ 100 mls/hr IVPB Q1H [facility] Rx#: [id number] Sodium Chloride 0.45% 1, 1100 800 000 ml @ 50 mls/hr IV . Q20H [facility] Rx#:[id number] Intake, IV Titration 12.966 100 Amount Clevidipine Butyrate 25 12.966 mg In Empty Bag 1 bag @ 1 MG/HR 2 mls/hr IV .Q24H [facility] Rx#:[id number] levETIRAcetam IV 1,000 mg 100 In Saline 1 100ml.bag @ 400 mls/hr IVPB Q12HR [facility] Rx#:[id number] Oral 125 Tube Feeding 240 190 300 Other 60 60 Output: Urine 573 510 565 Other: Voiding Method Indwelling Catheter Indwelling Catheter Indwelling Catheter - Exam PHYSICAL EXAM: GENERAL APPEARANCE: Patient is a 61-year-old -[place] male who appears to be in no acute distress. HEENT: Normocephalic, atraumatic, no facial asymmetry is seen. Neck is supple with no masses felt. CARDIOVASCULAR: Regular rate and rhythm. ABDOMEN: Nontender, nondistended. EXTREMITIES: Show no edema or clubbing. NEUROLOGICAL EXAM: Patient is awake, alert, and oriented 3. Speech is slightly dysarthric related to dry mouth. Language is normal. No obvious facial asymmetry is seen on cranial nerve testing. No lateralizing weakness of extremities. No tremors or seizure-like activity seen. - Labs CBC & Chem 7: 04/15/17 04:09 04/15/17 04:09 Labs: Abnormal Lab Results - Last 24 Hours (Table) 04/15/17 04/15/17 Range/Units 04:09 04:09 RBC 3.88 L (4.30-5.90) m/uL Hgb 11.1 L (13.0-17.5) gm/dL Hct 36.0 L (39.0-53.0) % MCHC 30.8 L (31.0-37.0) g/dL RDW 16.1 H (11.5-15.5) % Plt Count 93 L (150-450) k/uL Chloride 108 H (98-107) mmol/L Carbon Dioxide 19 L (22-30) mmol/L BUN 50 H (9-20) mg/dL Creatinine 2.18 H (0.66-1.25) mg/dL Assessment and Plan (1) REGINA (acute kidney injury) Current Visit: Yes Status: Acute Code(s): N17.9 - ACUTE KIDNEY FAILURE, UNSPECIFIED SNOMED Code(s): 87217131 (2) Altered mental status Current Visit: Yes Status: Acute Code(s): R41.82 - ALTERED MENTAL STATUS, UNSPECIFIED SNOMED Code(s): 800049115 (3) Hypertensive urgency Current Visit: Yes Status: Acute Code(s): I16.0 - HYPERTENSIVE URGENCY SNOMED Code(s): 683857934 (4) Atrial fibrillation with RVR Current Visit: Yes Status: Chronic Code(s): I48.91 - UNSPECIFIED ATRIAL FIBRILLATION SNOMED Code(s): 462243508093570 (5) Encephalopathy Current Visit: Yes Status: Suspected Code(s): G93.40 - ENCEPHALOPATHY, UNSPECIFIED SNOMED Code(s): 44702823 Plan: Recommendation: Patient appears to be much more awake and alert today. Patient' s altered mental status most likely due to multifactorial etiologies. Patient had EEG which was abnormal due to presence of occasional sharp wave activity seen mainly in the left temporal region. No obvious generalized epileptiform discharges were seen.. I will switch to oral Keppra when patient taking oral medication. Continue neurological checks. Continue current ICU management. Continue seizure precautions. I recommend a PT OT evaluation. If mental status declines I will get repeat CT of the head. I will continue to follow with you. Further recommendations to follow. I performed an examination of the patient and discussed the management with the WILLOW MACHINE OPERATOR. I have reviewed the WILLOW MACHINE OPERATOR notes and agree with the findings and plan of care.
--- NOTE | 2017-04-15 17:00 | PN ---
PROGRESS NOTE CHIEF COMPLAINT: Semi coma, drug overdose, malnutrition, and alcoholism, cirrhosis, renal failure. HISTORY OF PRESENT ILLNESS: This gentleman is starting to wake up a little bit more. His blood pressure is down to 152/81. He has not been able to swallow and an NG tube placed. He will have another swallow evaluation done now that he is more alert. His Dilaudid will also be cut down from 1 to 0.5 every 6 hours p.r.n. PHYSICAL EXAM: Vital signs are normal. Chest is clear. Cardiac exam demonstrates what sounds like sinus rhythm and no murmurs or extra sounds. The abdomen is soft and flat. Extremities are the same. IMPRESSION: 1. Mental status changes and semi coma. 2. History of drug addiction. 3. Alcoholism. 4. Cirrhosis. 5. Renal failure. PLAN: 1. Continue to try to increase activity. 2. Repeat swallow evaluation. 3. Cut Dilaudid down to 0.5 q6h. LAURE / JIMBON: [id number] /
[2017-04-15] MEDS: DEXTROSE 5% IN WATER 1,000 ML with SODIUM BICARB (1 MEQ/ML) 150 ML IV SCH (18:24)
[2017-04-15] MEDS ORDERED: DOCUSATE ORAL SOLN 100 MG/10 ML CUP PO SCH (21:00)
[2017-04-15] MEDS: DOCUSATE ORAL SOLN 100 MG/10 ML CUP NG-TUBE SCH ×2 (22:04→22:26)
[2017-04-15] MEDS: LORazepam 2 MG/ML INJ IV PRN (22:21)
[2017-04-16] MEDS: levETIRAcetam IV 1,000 MG in SALINE 1 100ML.BAG IVPB SCH ×2 (08:29→20:32)
[2017-04-16] MEDS ORDERED: amLODIPine 5 MG TAB PO SCH (08:30)
[2017-04-16] MEDS: ENOXAPARIN 30 MG/0.3 ML SYRINGE SQ SCH (09:07)
[2017-04-16] MEDS: PANTOPRAZOLE 40 MG TABLET PO SCH (09:07)
[2017-04-16] MEDS: amLODIPine 5 MG TAB PO SCH ×2 (09:07→20:31)
[2017-04-16] MEDS: DOCUSATE 100 MG CAP PO SCH ×2 (09:07→20:31)
[2017-04-16] MEDS: THIAMINE 100 MG TAB PO SCH ×2 (09:07→15:03)
[2017-04-16] MEDS: hydrALAZINE HCL 50 MG TAB PO SCH ×3 (09:08→23:48)
[2017-04-16 11:15] LABS: Anisocytosis Slight; Basophils % (A) 1 %; Eosinophils # (A) 0.3 k/uL (0-0.7); Eosinophils % (A) 5 %; HCT 35.9 % (39.0-53.0); HGB 11.3 gm/dL (13.0-17.5); Lymphocytes # (A) 1.9 k/uL (1.0-4.8); Lymphocytes % (A) 28 %; MCH 28.8 pg (25.0-35.0); MCHC 31.4 g/dL (31.0-37.0); MCV 91.8 fL (80.0-100.0); Mean Platelet Volume 10.7; Monocytes # (A) 0.5 k/uL (0-1.0); Monocytes % (A) 7 %; Neutrophils % (A) 58 %; RBC 3.91 m/uL (4.30-5.90); WBC 6.9 k/uL (3.8-10.6)
[2017-04-16 11:19] LABS: Platelet Count 83 k/uL (150-450)
[2017-04-16 11:37] LABS: Calcium 8.7 mg/dL (8.4-10.2); Potassium 4.2 mmol/L (3.5-5.1)
--- NOTE | 2017-04-16 11:37 | P.PN ---
Subjective Patient is seen in follow-up for acute kidney injury. Renal function is improved with creatinine down to 2.18 as of yesterday. Sodium level was also down to 139. He is tolerating oral intake. NG tube has been discontinued. Blood pressure is well controlled. He is working with physical therapy. No vomiting or diarrhea. Vital signs are stable. General: The patient appeared well nourished and normally developed. HEENT: Head exam is unremarkable. Neck is without jugular venous distension. LUNGS: Lungs are clear to auscultation and percussion. Breath sounds decreased. HEART: Rate and Rhythm are regular. First and second heart sounds normal. No murmurs, rubs or gallops. ABDOMEN: Abdominal exam reveals normal bowel sounds. Non-tender and non- distended. No evidence of peritonitis. EXTREMITITES: No clubbing, cyanosis, or edema. Objective - Vital Signs Vital signs: Vital Signs Temp 97.0 F L 04/16/17 06:22 Pulse 56 L 04/16/17 06:22 Resp 16 04/16/17 06:22 BP 130/76 04/16/17 06:22 Pulse Ox 100 04/16/17 06:22 Intake & Output 04/15/17 04/16/17 04/16/17 18:59 06:59 18:59 Intake Total 1385 300 Output Total 565 Balance 820 300 Weight 61.3 kg Intake: IV 800 Sodium Chloride 0.45% 1, 800 000 ml @ 50 mls/hr IV . Q20H [facility] Rx#:[id number] Intake, IV Titration 100 Amount levETIRAcetam IV 1,000 mg 100 In Saline 1 100ml.bag @ 400 mls/hr IVPB Q12HR [facility] Rx#:[id number] Oral 125 300 Tube Feeding 300 Other 60 Output: Urine 565 Other: Voiding Method Indwelling Catheter # Voids 2 # Bowel Movements 0 - Labs CBC & Chem 7: 04/16/17 09:04 04/15/17 04:09 Labs: Abnormal Lab Results - Last 24 Hours (Table) 04/16/17 Range/Units 09:04 RBC 3.91 L (4.30-5.90) m/uL Hgb 11.3 L (13.0-17.5) gm/dL Hct 35.9 L (39.0-53.0) % RDW 16.0 H (11.5-15.5) % Plt Count 83 L (150-450) k/uL Assessment and Plan Plan: Assessment: #1. Nonoliguric acute kidney injury secondary to ATN secondary to intravascular volume depletion and cocaine abuse. Renal function improving with creatinine down to 2.18 as of yesterday. #2. Hypernatremia secondary to lack of oral water intake and free water deficit. Sodium level down to 139 as of yesterday. #3. Metabolic acidosis secondary to acute kidney injury and IV fluids. #4. Hepatitis C IgG antibody reactive. He does have proteinuria on urinalysis which is likely nonspecific in the setting of acute kidney injury. He only had trace proteinuria in December 2016. Once GFR returns to baseline, will quantify proteinuria to rule out hep C induced GN. #5. History of cocaine abuse. #6. Benign hypertension with component of cocaine withdrawal. Now controlled. Plan: Continue half-normal saline at 50 mL an hour - can likely discontinue tomorrow. Maintain current antihypertensives. Continue to monitor renal function and urine output. Avoid nephrotoxic agents and hypotensive episodes. Repeat electrolytes in the morning. Encouraged oral intake. Continue physical therapy.
[2017-04-16] MEDS: SODIUM CHLORIDE 0.45% 1,000 ML IV SCH (13:24)
--- NOTE | 2017-04-16 13:53 | P.PN ---
Subjective Progress Note Date: 04/16/17 Mr. Dennis is seen and examined today resting comfortably in bed on the surgical unit. He is alert and conversational. He denies symptoms of chest pain , shortness of breath, dizziness, palpitation, nausea or vomiting. Telemetry tracings have been unremarkable with no evidence of acute arrhythmia. Heart rates have been running in 50-60 range. Blood pressure 150-130 systolic on current regimen. He is currently tolerating PO and taking medications without difficulty. Currently he is on hydralazine 50mg TID, norvasc 5mg BID and clonidine patch. Objective - Vital Signs Vital signs: Vital Signs Temp 97.0 F L 04/16/17 06:22 Pulse 56 L 04/16/17 06:22 Resp 16 04/16/17 06:22 BP 130/76 04/16/17 06:22 Pulse Ox 100 04/16/17 06:22 Intake & Output 04/15/17 04/16/17 04/16/17 18:59 06:59 18:59 Intake Total 1385 300 Output Total 565 Balance 820 300 Weight 61.3 kg Intake: IV 800 Sodium Chloride 0.45% 1, 800 000 ml @ 50 mls/hr IV . Q20H [facility] Rx#:[id number] Intake, IV Titration 100 Amount levETIRAcetam IV 1,000 mg 100 In Saline 1 100ml.bag @ 400 mls/hr IVPB Q12HR [facility] Rx#:[id number] Oral 125 300 Tube Feeding 300 Other 60 Output: Urine 565 Other: Voiding Method Indwelling Catheter # Voids 2 # Bowel Movements 0 - Exam Blood pressure 130/76 heart rate 56 afebrile GENERAL: Well-appearing, well-nourished and in no acute distress. Cachectic. NECK: Supple without JVD or thyromegaly. LUNGS: Breath sounds clear to auscultation bilaterally. Respiration equal and unlabored. No wheezes, rales or rhonchi. HEART: Regular rate and rhythm without murmurs, rubs or gallops. S1 and S2 heard. EXTREMITIES: Normal range of motion, no edema. No clubbing or cyanosis. Peripheral pulses intact and strong. - Labs CBC & Chem 7: 04/16/17 09:04 04/16/17 09:04 Labs: Abnormal Lab Results - Last 24 Hours (Table) 04/16/17 04/16/17 Range/Units 09:04 09:04 RBC 3.91 L (4.30-5.90) m/uL Hgb 11.3 L (13.0-17.5) gm/dL Hct 35.9 L (39.0-53.0) % RDW 16.0 H (11.5-15.5) % Plt Count 83 L (150-450) k/uL Carbon Dioxide 18 L (22-30) mmol/L BUN 46 H (9-20) mg/dL Creatinine 1.97 H (0.66-1.25) mg/dL Assessment and Plan Assessment: ASSESSMENT 1. One episode of atrial fibrillation with rapid ventricular rate, currently maintaining sinus mechanism 2. Hypertension 3. History of polysubstance abuse 4. Acute kidney injury, nephrology following PLAN Continue on current antihypertensive regiman. We will continue to follow as needed. Please feel free to call with questions or concerns. Nurse Practitioner note has been reviewed, I agree with a documented findings and plan of care. Patient was seen and examined.
[2017-04-16] MEDS ORDERED: ACETAMINOPHEN TAB 325 MG TAB PO PRN (14:47)
--- NOTE | 2017-04-16 17:10 | P.PN ---
Subjective Progress Note Date: 04/16/17 Patient is a 61-year-old -[place] male who is being followed by the neurology service for altered mental status. Patient was found lying on a porch at his apartment complex. His downtime is unknown. He was found to have rhabdomyolysis. Patient's urine drug screen was positive for opiates and cocaine. Patient was diagnosed with drug overdose. CT of the brain showed no acute intracranial abnormalities. Patient was hypertensive and was admitted to the ICU. Patient does have history of alcohol withdrawal seizure activity. Patient is on IV Keppra and has had no further seizures since admission. Staff reports patient becomes restless and agitated at times. At the time of my evaluation, patient is resting comfortably in bed and appears to be in no acute distress. 04/16/2017 Patient is a 61-year-old -[place] male who is being followed by the neurology service for altered mental status and seizure. Patient has not had any further seizures since admission. Patient is seen today on the medical floor. Patient was transferred out of the ICU yesterday. Staff informs me patient is taking orals well. Patient is afebrile with blood pressure 144/81. No new neurological symptoms. Patient reports being sore from the fall. At the time of my evaluation, patient's resting comfortably in bed and appears to be in no acute distress. Objective - Vital Signs Vital signs: Vital Signs Temp 97.6 F 04/16/17 14:59 Pulse 61 04/16/17 14:59 Resp 16 04/16/17 14:59 BP 144/81 04/16/17 14:59 Pulse Ox 100 04/16/17 14:59 Intake & Output 04/15/17 04/16/17 04/16/17 18:59 06:59 18:59 Intake Total 1385 300 400 Output Total 565 Balance 820 300 400 Weight 61.3 kg Intake: IV 800 400 Sodium Chloride 0.45% 1, 800 400 000 ml @ 50 mls/hr IV . Q20H [facility] Rx#:[id number] Intake, IV Titration 100 Amount levETIRAcetam IV 1,000 mg 100 In Saline 1 100ml.bag @ 400 mls/hr IVPB Q12HR [facility] Rx#:[id number] Oral 125 300 Tube Feeding 300 Other 60 Output: Urine 565 Other: Voiding Method Indwelling Catheter # Voids 2 # Bowel Movements 0 - Exam PHYSICAL EXAM: GENERAL APPEARANCE: Patient is a 61-year-old -[place] male who appears to be in no acute distress. HEENT: Normocephalic, atraumatic, no facial asymmetry is seen. Neck is supple with no masses felt. CARDIOVASCULAR: Regular rate and rhythm. ABDOMEN: Nontender, nondistended. EXTREMITIES: Show no edema or clubbing. NEUROLOGICAL EXAM: Patient is awake, alert, and oriented 3. Speech is slightly dysarthric related to dry mouth. Language is normal. No obvious facial asymmetry is seen on cranial nerve testing. No lateralizing weakness of extremities. No tremors or seizure-like activity seen. - Labs CBC & Chem 7: 04/16/17 09:04 04/16/17 09:04 Labs: Abnormal Lab Results - Last 24 Hours (Table) 04/16/17 04/16/17 Range/Units 09:04 09:04 RBC 3.91 L (4.30-5.90) m/uL Hgb 11.3 L (13.0-17.5) gm/dL Hct 35.9 L (39.0-53.0) % RDW 16.0 H (11.5-15.5) % Plt Count 83 L (150-450) k/uL Carbon Dioxide 18 L (22-30) mmol/L BUN 46 H (9-20) mg/dL Creatinine 1.97 H (0.66-1.25) mg/dL Assessment and Plan (1) REGINA (acute kidney injury) Current Visit: Yes Status: Acute Code(s): N17.9 - ACUTE KIDNEY FAILURE, UNSPECIFIED SNOMED Code(s): 90842759 (2) Altered mental status Current Visit: Yes Status: Acute Code(s): R41.82 - ALTERED MENTAL STATUS, UNSPECIFIED SNOMED Code(s): 685514929 (3) Hypertensive urgency Current Visit: Yes Status: Acute Code(s): I16.0 - HYPERTENSIVE URGENCY SNOMED Code(s): 050182855 (4) Atrial fibrillation with RVR Current Visit: Yes Status: Chronic Code(s): I48.91 - UNSPECIFIED ATRIAL FIBRILLATION SNOMED Code(s): 486498278952818 (5) Encephalopathy Current Visit: Yes Status: Suspected Code(s): G93.40 - ENCEPHALOPATHY, UNSPECIFIED SNOMED Code(s): 79209090 Plan: Recommendation: Patient appears to be much more awake and alert today. Patient' s altered mental status most likely due to metabolic and toxic abnormality. Patient had EEG which was abnormal due to presence of occasional sharp wave activity seen mainly in the left temporal region. No obvious generalized epileptiform discharges were seen. I will switch to oral Keppra as patient is taking oral medication well. Continue neurological checks. Continue medical management. Continue seizure precautions. I recommend a PT OT evaluation. Patient may need short-term inpatient rehab. If mental status declines I will get repeat CT of the head. I will continue to follow with you on an as-needed basis. Feel free to call with any questions or concerns. I performed an examination of the patient and discussed the management with the SWITCHBOARD OPERATOR HELPER. I have reviewed the SWITCHBOARD OPERATOR HELPER notes and agree with the findings and plan of care.
[2017-04-16] MEDS: HYDROmorphone 2 MG TAB PO PRN (20:30)
[2017-04-16] MEDS: LORazepam 2 MG/ML INJ IV PRN (23:14)
[2017-04-17] MEDS: ENOXAPARIN 40 MG/0.4 ML SYRINGE SQ SCH (08:17)
[2017-04-17] MEDS: hydrALAZINE HCL 50 MG TAB PO SCH ×3 (08:17→21:23)
[2017-04-17] MEDS: SODIUM CHLORIDE 0.45% 1,000 ML IV SCH (08:18)
[2017-04-17] MEDS: DOCUSATE 100 MG CAP PO SCH ×2 (08:18→21:22)
[2017-04-17] MEDS: amLODIPine 5 MG TAB PO SCH ×2 (08:18→21:23)
[2017-04-17] MEDS: PANTOPRAZOLE 40 MG TABLET PO SCH (08:18)
[2017-04-17 08:57] LABS: Calcium 8.2 mg/dL (8.4-10.2); Magnesium 1.6 mg/dL (1.6-2.3); Potassium 4.5 mmol/L (3.5-5.1)
[2017-04-17] MEDS: levETIRAcetam 500 MG TAB PO SCH ×2 (09:52→21:23)
[2017-04-17] MEDS ORDERED: SODIUM BICARB 8.4% 50 ML SYR (1 MEQ/ML) IV ONE (10:40)
[2017-04-17] MEDS: cloNIDine 0.3 MG/24HR PATCH 1 PATCH PATCH TRANSDERM SCH (10:42)
[2017-04-17] MEDS: SODIUM BICARBONATE TAB 650 MG TAB PO SCH ×2 (11:08→21:23)
[2017-04-17] MEDS: THIAMINE 100 MG TAB PO SCH ×2 (11:09→17:12)
[2017-04-17] MEDS: MAGNESIUM SULFATE-D5W PMX 1 GM in DEXTROSE/WATER 1 100ML.BAG IVPB SCH ×2 (11:10→12:17)
--- NOTE | 2017-04-17 11:19 | P.PN ---
Subjective Patient is seen in follow-up for acute kidney injury. Renal function is improved with creatinine down to 1.58 today. He is tolerating oral intake. NG tube has been discontinued. Blood pressure is well controlled. He is working with physical therapy. No vomiting or diarrhea. Denies vomiting or diarrhea. Vital signs are stable. General: The patient appeared well nourished and normally developed. HEENT: Head exam is unremarkable. Neck is without jugular venous distension. LUNGS: Lungs are clear to auscultation and percussion. Breath sounds decreased. HEART: Rate and Rhythm are regular. First and second heart sounds normal. No murmurs, rubs or gallops. ABDOMEN: Abdominal exam reveals normal bowel sounds. Non-tender and non- distended. No evidence of peritonitis. EXTREMITITES: No clubbing, cyanosis, or edema. Objective - Vital Signs Vital signs: Vital Signs Temp 97.6 F 04/17/17 07:00 Pulse 61 04/17/17 07:00 Resp 16 04/17/17 07:00 BP 140/82 04/17/17 07:00 Pulse Ox 99 04/17/17 07:00 Intake & Output 04/16/17 04/17/17 04/17/17 18:59 06:59 18:59 Intake Total 400 400 Output Total 400 Balance 400 -400 400 Intake: IV 400 Sodium Chloride 0.45% 1, 400 000 ml @ 50 mls/hr IV . Q20H [facility] Rx#:[id number] Oral 400 Output: Urine 400 Other: Voiding Method Bedside Commode # Voids 2 # Bowel Movements 0 - Labs CBC & Chem 7: 04/16/17 09:04 04/17/17 08:12 Labs: Abnormal Lab Results - Last 24 Hours (Table) 04/16/17 04/16/17 04/17/17 Range/Units 09:04 09:04 08:12 RBC 3.91 L (4.30-5.90) m/uL Hgb 11.3 L (13.0-17.5) gm/dL Hct 35.9 L (39.0-53.0) % RDW 16.0 H (11.5-15.5) % Plt Count 83 L (150-450) k/uL Sodium 136 L (137-145) mmol/L Chloride 109 H (98-107) mmol/L Carbon Dioxide 18 L 14 L (22-30) mmol/L BUN 46 H 39 H (9-20) mg/dL Creatinine 1.97 H 1.58 H (0.66-1.25) mg/dL Glucose 111 H (74-99) mg/dL Calcium 8.2 L (8.4-10.2) mg/dL Assessment and Plan Plan: Assessment: #1. Nonoliguric acute kidney injury secondary to ATN secondary to intravascular volume depletion and cocaine abuse. Renal function improving with creatinine down to 1.58. #2. Hypernatremia secondary to lack of oral water intake and free water deficit. Sodium level down to 136. #3. Metabolic acidosis secondary to acute kidney injury and IV fluids. #4. Hepatitis C IgG antibody reactive. He does have proteinuria on urinalysis which is likely nonspecific in the setting of acute kidney injury. He only had trace proteinuria in December 2016. Once GFR returns to baseline, will quantify proteinuria to rule out hep C induced GN. #5. History of cocaine abuse. #6. Benign hypertension with component of cocaine withdrawal. Now controlled. #7. Hypomagnesemia due to poor nutritional status. Plan: Hep-Lock IV fluids. If oral intake is poor, will gently hydrate with 0.9 saline. Maintain current antihypertensives. Continue to monitor renal function and urine output. Avoid nephrotoxic agents and hypotensive episodes. Repeat electrolytes in the morning. Encouraged oral intake. Continue physical therapy. I will give him 2 A of sodium bicarbonate IV push. Start oral sodium bicarbonate 1300 mg twice daily. Replace magnesium. 2 g IV today.
[2017-04-17] MEDS: NICOTINE 21MG/24HR PATCH TRANSDERM SCH (15:02)
--- NOTE | 2017-04-17 20:19 | P.PN ---
Subjective Progress Note Date: 04/16/17 Progress note being dictated for Dr. Washington Interval history: This a 61-year-old gentleman with a known history of SVT on verapamil, hypertension, polysubstance abuse, alcoholism with previous seizures , pancreatitis, sleep apnea not utilizing CPAP in the outpatient setting, severe peng from his chest to his lower extremities ,osteoarthritis with bilateral knee replacements, bipolar disorder, chronic and ongoing tobacco dependence, chronic and ongoing drug abuse. He was brought into the emergency room obtunded, drug screen positive for opiates and cocaine. Sodium 152, potassium 5.4, chloride 114, bicarb 9, BUN 97 creatinine 5.10 mL lactic acid 4.3 , AST 132, total creatinine kinase 4631, TSH 0.333. EKG shows atrial fibrillation with ST and T-wave abnormalities of the inferior lateral leads along with LVH. Troponin 0.031. Computed tomography scan of the brain was negative for any acute intracranial abnormalities. Chest x-ray reveals no acute pulmonary process. Hypertensive, initiated on Clevidipine along with bicarb gtt.,Keppra and CIWA protocol. 04/16/2017 no overnight events. Transferred out of ICU yesterday, currently on MedSurg unit. Maintained on gentle IV fluid hydration .Blood pressure controlled on clonidine patch, hydralazine and Norvasc.Denies nausea, vomiting, or diarrhea. Complains of chest pain. Denies focal deficits, no lightheadedness no dizziness. Telemetry sinus rhythm. Renal function improving , sodium 139. Objective - Vital Signs Vital signs: Vital Signs Temp 97.6 F 04/17/17 15:00 Pulse 65 04/17/17 15:00 Resp 16 04/17/17 15:00 BP 157/71 04/17/17 15:00 Pulse Ox 98 04/17/17 15:00 Intake & Output 04/17/17 04/17/17 04/18/17 06:59 18:59 06:59 Intake Total 400 Output Total 400 Balance -400 400 Weight 61.3 kg Intake: Oral 400 Output: Urine 400 Other: Voiding Method Bedside Commode # Voids 2 3 # Bowel Movements 0 0 - Exam PHYSICAL EXAM: VITAL SIGNS: Temperature 90.7 degrees, pulse 56, respiratory rate 16, blood pressure 130/76, O2 sat 100% on room air GENERAL: Sitting up in bed, no acute distress HEENT: Conjunctivae normal. eyes normal. Oral mucosa moist NECK: No JVD. No thyroid enlargement. No LNs CARDIOVASCULAR: S1, S2 muffled. No murmur RESPIRATION: Breath sounds diminished in the bases. No rhonchi or crackles. No wheezes, No bronchial breathing. ABDOMEN: Soft, nontender . No guarding. no masses palpable. Bowel sounds heard. LEGS: No edema. no swelling PSYCHIATRY: Alert and oriented -3, mood and affect normal. NERVOUS SYSTEM: Cranial N 2-12 grossly normal. Moves all 4 limbs. Diffuse weakness No focal deficits. No sensory deficit. - Labs CBC & Chem 7: 04/16/17 09:04 04/17/17 08:12 Labs: Abnormal Lab Results - Last 24 Hours (Table) 04/17/17 Range/Units 08:12 Sodium 136 L (137-145) mmol/L Chloride 109 H (98-107) mmol/L Carbon Dioxide 14 L (22-30) mmol/L BUN 39 H (9-20) mg/dL Creatinine 1.58 H (0.66-1.25) mg/dL Glucose 111 H (74-99) mg/dL Calcium 8.2 L (8.4-10.2) mg/dL Assessment and Plan Assessment: #1 Altered mental status suspected secondary to multiple drug overdose. Urine drug screen positive for cocaine and opiates. Acute metabolic encephalopathy #2 Rhabdomyolysis secondary to suspected prolonged down time. CPK on admission was 4631, we'll continue to monitor CPK. Improving, CPK today is 571. #3 Acute on chronic renal failure with presenting creatinine of 5.10, creatinine today is 2.18 #5 Hypernatremia with presenting sodium 152, currently 139 #6 Atrial fibrillation with rapid ventricular response, currently in normal sinus rhythm. #7 Hypertensive urgency currently on clonidine and Apresoline and Norvasc #8 History of pancreatitis. #9 History of SVT. #10 Previous history of alcohol abuse with withdrawal seizures. Initiated on Keppra. #11 Chronic and ongoing tobacco dependence. #12 History of bipolar disorder. #13 positive hepatitis C IgG antibody. Plan: Continue on current medication regime ,monitoring and symptomatic treatment. Maintain gentle IV fluid hydration. Aggressive pulmonary toileting. PT/OT. Discharge planning in progress for subacute rehab-placement pending. The impression and plan of care has been dictated as directed. : I performed a history and examination of this patient, discussed the same with the dictator. I agree with the dictator's note ,documented as a scribe. Any additional findings or plans will be noted.
--- NOTE | 2017-04-17 20:29 | P.PN ---
Subjective Progress Note Date: 04/17/17 Progress note being dictated for Dr. Washington Interval history: This a 61-year-old gentleman with a known history of SVT on verapamil, hypertension, polysubstance abuse, alcoholism with previous seizures , pancreatitis, sleep apnea not utilizing CPAP in the outpatient setting, severe peng from his chest to his lower extremities ,osteoarthritis with bilateral knee replacements, bipolar disorder, chronic and ongoing tobacco dependence, chronic and ongoing drug abuse. He was brought into the emergency room obtunded, drug screen positive for opiates and cocaine. Sodium 152, potassium 5.4, chloride 114, bicarb 9, BUN 97 creatinine 5.10 mL lactic acid 4.3 , AST 132, total creatinine kinase 4631, TSH 0.333. EKG shows atrial fibrillation with ST and T-wave abnormalities of the inferior lateral leads along with LVH. Troponin 0.031. Computed tomography scan of the brain was negative for any acute intracranial abnormalities. Chest x-ray reveals no acute pulmonary process. Hypertensive, initiated on Clevidipine along with bicarb gtt.,Keppra and CIWA protocol. 04/16/2017 no overnight events. Transferred out of ICU yesterday, currently on MedSurg unit. Maintained on gentle IV fluid hydration .Blood pressure controlled on clonidine patch, hydralazine and Norvasc.Denies nausea, vomiting, or diarrhea. Complains of chest pain. Denies focal deficits, no lightheadedness no dizziness. Telemetry sinus rhythm. Renal function improving , sodium 139. 04/17/2017 no overnight events. Continued renal function improvement. Blood pressure is controlled. Magnesium currently being replaced. Denies chest pain, palpitations or increasing shortness of breath. Denies lightheadedness dizziness or focal deficits. Ambulating in room, tolerating increase in exertion well. Objective - Vital Signs Vital signs: Vital Signs Temp 97.6 F 04/17/17 15:00 Pulse 65 04/17/17 15:00 Resp 16 04/17/17 15:00 BP 157/71 04/17/17 15:00 Pulse Ox 98 04/17/17 15:00 Intake & Output 04/17/17 04/17/17 04/18/17 06:59 18:59 06:59 Intake Total 400 Output Total 400 Balance -400 400 Weight 61.3 kg Intake: Oral 400 Output: Urine 400 Other: Voiding Method Bedside Commode # Voids 2 3 # Bowel Movements 0 0 - Exam PHYSICAL EXAM: VITAL SIGNS: As above GENERAL: Sitting up in bed, no acute distress HEENT: Conjunctivae normal. eyes normal. Oral mucosa moist NECK: No JVD. No thyroid enlargement. No LNs CARDIOVASCULAR: S1, S2 muffled. No murmur RESPIRATION: Breath sounds diminished in the bases. No rhonchi or crackles. No wheezes ABDOMEN: Soft, nontender . No guarding. no masses palpable. Bowel sounds heard. LEGS: No edema. no swelling PSYCHIATRY: Alert and oriented -3, mood and affect normal. NERVOUS SYSTEM: Cranial N 2-12 grossly normal. Moves all 4 limbs. Diffuse weakness No focal deficits. No sensory deficit. - Labs CBC & Chem 7: 04/16/17 09:04 04/17/17 08:12 Labs: Abnormal Lab Results - Last 24 Hours (Table) 04/17/17 Range/Units 08:12 Sodium 136 L (137-145) mmol/L Chloride 109 H (98-107) mmol/L Carbon Dioxide 14 L (22-30) mmol/L BUN 39 H (9-20) mg/dL Creatinine 1.58 H (0.66-1.25) mg/dL Glucose 111 H (74-99) mg/dL Calcium 8.2 L (8.4-10.2) mg/dL Assessment and Plan Assessment: #1 Altered mental status suspected secondary to multiple drug overdose. Urine drug screen positive for cocaine and opiates. Acute metabolic encephalopathy #2 Rhabdomyolysis secondary to suspected prolonged down time. CPK on admission was 4631, we'll continue to monitor CPK. Improving, CPK today is 571. #3 Acute on chronic renal failure with presenting creatinine of 5.10, creatinine today is 2.18 #5 Hypernatremia with presenting sodium 152, currently 139 #6 Atrial fibrillation with rapid ventricular response, currently in normal sinus rhythm. #7 Hypertensive urgency currently on clonidine and Apresoline and Norvasc #8 History of pancreatitis. #9 History of SVT. #10 Previous history of alcohol abuse with withdrawal seizures. Initiated on Keppra. #11 Chronic and ongoing tobacco dependence. #12 History of bipolar disorder. #13 positive hepatitis C IgG antibody. Plan: Continue on current medication regime , antihypertensives, monitoring and symptomatic treatment. Aggressive pulmonary toileting. PT/OT. Discharge planning in progress for subacute rehab-placement pending.accepting facility. The impression and plan of care has been dictated as directed. : I performed a history and examination of this patient, discussed the same with the dictator. I agree with the dictator's note ,documented as a scribe. Any additional findings or plans will be noted.
[2017-04-18] MEDS: HYDROmorphone 2 MG TAB PO PRN ×2 (00:27→08:26)
[2017-04-18 07:27] VITALS: RESP 16
[2017-04-18] MEDS: ENOXAPARIN 40 MG/0.4 ML SYRINGE SQ SCH (08:23)
[2017-04-18] MEDS: hydrALAZINE HCL 50 MG TAB PO SCH ×2 (08:23→15:58)
[2017-04-18] MEDS: THIAMINE 100 MG TAB PO SCH ×2 (08:23→15:59)
[2017-04-18] MEDS: DOCUSATE 100 MG CAP PO SCH (08:23)
[2017-04-18] MEDS: NICOTINE 21MG/24HR PATCH TRANSDERM SCH (08:23)
[2017-04-18] MEDS: SODIUM BICARBONATE TAB 650 MG TAB PO SCH (08:24)
[2017-04-18] MEDS: ERGOCALCIFEROL 50,000 UNIT CAP PO SCH (08:24)
[2017-04-18] MEDS: PANTOPRAZOLE 40 MG TABLET PO SCH (08:24)
[2017-04-18] MEDS: levETIRAcetam 500 MG TAB PO SCH (08:24)
[2017-04-18] MEDS: amLODIPine 5 MG TAB PO SCH (08:24)
--- NOTE | 2017-04-18 09:28 | P.PN ---
Subjective Patient is seen in follow-up for acute kidney injury. Renal function is improved with creatinine down to 1.58 as of yesterday. He is tolerating oral intake. NG tube has been discontinued. Blood pressure is well controlled. He is working with physical therapy. No vomiting or diarrhea. Denies chest pain or shortness of breath. No active complaints at this time. Vital signs are stable. General: The patient appeared well nourished and normally developed. HEENT: Head exam is unremarkable. Neck is without jugular venous distension. LUNGS: Lungs are clear to auscultation and percussion. Breath sounds decreased. HEART: Rate and Rhythm are regular. First and second heart sounds normal. No murmurs, rubs or gallops. ABDOMEN: Abdominal exam reveals normal bowel sounds. Non-tender and non- distended. No evidence of peritonitis. EXTREMITITES: No clubbing, cyanosis, or edema. Objective - Vital Signs Vital signs: Vital Signs Temp 97.5 F L 04/18/17 07:00 Pulse 51 L 04/18/17 07:00 Resp 16 04/18/17 08:31 BP 123/70 04/18/17 07:00 Pulse Ox 99 04/18/17 07:00 Intake & Output 04/17/17 04/18/17 04/18/17 18:59 06:59 18:59 Intake Total 400 160 Balance 400 160 Weight 61.3 kg 61.3 kg Intake: Intake, IV Titration 160 Amount Sodium Chloride 0.45% 1, 160 000 ml @ 50 mls/hr IV . Q20H [facility] Rx#:[id number] Oral 400 Other: Voiding Method Bedside Commode # Voids 3 1 # Bowel Movements 0 0 - Labs CBC & Chem 7: 04/16/17 09:04 04/17/17 08:12 Labs: Abnormal Lab Results - Last 24 Hours (Table) 04/17/17 Range/Units 08:12 Sodium 136 L (137-145) mmol/L Chloride 109 H (98-107) mmol/L Carbon Dioxide 14 L (22-30) mmol/L BUN 39 H (9-20) mg/dL Creatinine 1.58 H (0.66-1.25) mg/dL Glucose 111 H (74-99) mg/dL Calcium 8.2 L (8.4-10.2) mg/dL Assessment and Plan Plan: Assessment: #1. Nonoliguric acute kidney injury secondary to ATN secondary to intravascular volume depletion and cocaine abuse. Renal function improving with creatinine down to 1.58 as of yesterday. #2. Hypernatremia secondary to lack of oral water intake and free water deficit. Resolved. #3. Metabolic acidosis secondary to acute kidney injury and IV fluids. #4. Hepatitis C IgG antibody reactive. He does have proteinuria on urinalysis which is likely nonspecific in the setting of acute kidney injury. He only had trace proteinuria in December 2016. Once GFR returns to baseline, will quantify proteinuria to rule out hep C induced GN. #5. History of cocaine abuse. #6. Benign hypertension with component of cocaine withdrawal. Now controlled. #7. Hypomagnesemia due to poor nutritional status status post replacement yesterday. Plan: Hep-Lock IV fluids. If oral intake is poor, will gently hydrate with 0.9 saline. Maintain current antihypertensives. Continue to monitor renal function and urine output. Avoid nephrotoxic agents and hypotensive episodes. Encouraged oral intake. Continue physical therapy. Maintain oral sodium bicarbonate 1300 mg twice daily. Follow-up morning labs.
[2017-04-18 09:34] LABS: Anion Gap 13 mmol/L; Blood Urea Nitrogen 30 mg/dL (9-20); Calcium 8.6 mg/dL (8.4-10.2); Carbon Dioxide 18 mmol/L (22-30); Chloride 105 mmol/L (98-107); Glucose 106 mg/dL (74-99); Magnesium 1.7 mg/dL (1.6-2.3); Potassium 3.9 mmol/L (3.5-5.1); Sodium 136 mmol/L (137-145)
--- NOTE | 2017-04-18 13:59 | P.DS ---
Providers Date of admission: 04/09/17 20:17 Attending physician: Chino Carrera Consults: 04/09/17 20:17 Consult Physician Routine Consulting Provider: Deanna Mcgee Consult Reason/Comments: afibRVR Do you want consulting provider notified?: Yes Consult Physician Routine Consulting Provider: Pritesh Lara Consult Reason/Comments: icu Do you want consulting provider notified?: Yes Consult Physician Routine Consulting Provider: Tran Navarro Consult Reason/Comments: arf Do you want consulting provider notified?: Yes 04/12/17 09:22 Consult Physician Routine Consulting Provider: Dawit Fajardo Consult Reason/Comments: altered mental status Do you want consulting provider notified?: Yes 04/16/17 16:49 Consult Physician Routine Consulting Provider: [facility] Consult Reason/Comments: chest pain Do you want consulting provider notified?: Yes Primary care physician: Stated None Hospital Course: This a 61-year-old gentleman with a known history of SVT on verapamil, hypertension, polysubstance abuse, alcoholism with previous seizures, pancreatitis, sleep apnea not utilizing CPAP in the outpatient setting, severe peng from his chest to his lower extremities ,osteoarthritis with bilateral knee replacements, bipolar disorder, chronic and ongoing tobacco dependence, chronic and ongoing drug abuse. He was brought into the emergency room obtunded , drug screen positive for opiates and cocaine. Sodium 152, potassium 5.4, chloride 114, bicarb 9, BUN 97 creatinine 5.10 mL lactic acid 4.3, AST 132, total creatinine kinase 4631, TSH 0.333. EKG shows atrial fibrillation with ST and T-wave abnormalities of the inferior lateral leads along with LVH. Troponin 0.031. Computed tomography scan of the brain was negative for any acute intracranial abnormalities. Chest x-ray reveals no acute pulmonary process. Hypertensive, initiated on Clevidipine along with bicarb gtt.,Keppra and CIWA protocol. 04/16/2017 no overnight events. Transferred out of ICU yesterday, currently on MedSurg unit. Maintained on gentle IV fluid hydration .Blood pressure controlled on clonidine patch, hydralazine and Norvasc.Denies nausea, vomiting, or diarrhea. Complains of chest pain. Denies focal deficits, no lightheadedness no dizziness. Telemetry sinus rhythm. Renal function improving , sodium 139. 04/17/2017 no overnight events. Continued renal function improvement. Blood pressure is controlled. Magnesium currently being replaced. Denies chest pain, palpitations or increasing shortness of breath. Denies lightheadedness dizziness or focal deficits. Ambulating in room, tolerating increase in exertion well. Pulmonary 2017 No overnight events patient is being discharged to subacute rehabilitation. PHYSICAL EXAM: VITAL SIGNS: As above GENERAL: Sitting up in bed, no acute distress HEENT: Conjunctivae normal. eyes normal. Oral mucosa moist NECK: No JVD. No thyroid enlargement. No LNs CARDIOVASCULAR: S1, S2 muffled. No murmur RESPIRATION: Breath sounds diminished in the bases. No rhonchi or crackles. No wheezes ABDOMEN: Soft, nontender . No guarding. no masses palpable. Bowel sounds heard. LEGS: No edema. no swelling PSYCHIATRY: Alert and oriented -3, mood and affect normal. NERVOUS SYSTEM: Cranial N 2-12 grossly normal. Moves all 4 limbs. Diffuse weakness No focal deficits. No sensory deficit. Assessment and Plan Assessment: #1 Altered mental status suspected secondary to multiple drug overdose. Urine drug screen positive for cocaine and opiates. Acute metabolic encephalopathy #2 Rhabdomyolysis secondary to suspected prolonged down time. CPK on admission was 4631, we'll continue to monitor CPK. Improving, CPK today is 571. #3 Acute on chronic renal failure with presenting creatinine of 5.10, creatinine today is 1.43 #5 Hypernatremia with presenting sodium 152, currently 139 #6 Atrial fibrillation with rapid ventricular response, currently in normal sinus rhythm. #7 Hypertensive urgency currently on clonidine and Apresoline and Norvasc #8 History of pancreatitis. #9 History of SVT. #10 Previous history of alcohol abuse with withdrawal seizures. Initiated on Keppra. #11 Chronic and ongoing tobacco dependence. #12 History of bipolar disorder. #13 positive hepatitis C IgG antibody. Patient Condition at Discharge: Critical Plan - Discharge Summary Discharge Rx Participant: No New Discharge Prescriptions: New Acetaminophen Tab [Tylenol] 650 mg PO Q6HR PRN tab PRN Reason: Fever and/ or Mild Pain amLODIPine [Norvasc] 5 mg PO BID tab cloNIDine 0.3 MG/24HR PATCH [Catapres-TTS] 1 patch TRANSDERM Q7D patch Docusate [Colace] 100 mg PO BID cap Ergocalciferol [Vitamin D2 (DRISDOL)] 50,000 unit PO Q72H cap Folic Acid 1 mg PO DAILY #30 tablet hydrALAZINE HCL [Apresoline] 50 mg PO TID tab levETIRAcetam [Keppra] 1,000 mg PO Q12HR tab Multivitamins, Thera [Multivitamin (formulary)] 1 tab PO DAILY #30 tablet Nicotine 21Mg/24Hr Patch [Habitrol] 1 patch TRANSDERM DAILY@1200 #0 patch Sodium Bicarbonate Tab 1,300 mg PO BID tab Thiamine [Vitamin B-1] 100 mg PO BID@1200,1700 tab HYDROmorphone [Dilaudid] 2 mg PO Q4HR PRN #20 tab PRN Reason: Pain Continue QUEtiapine FUMARATE [SEROquel] 300 mg PO HS QUEtiapine [SEROquel] 100 mg PO W/LUNCH QUEtiapine [SEROquel] 50 mg PO QAM DULoxetine HCL [Cymbalta] 60 mg PO BID Albuterol Inhaler [Ventolin Hfa Inhaler] 2 puff INHALATION RT-Q6H PRN PRN Reason: Shortness Of Breath Discontinued Verapamil HCl [Verapamil ER] 120 mg PO BID Discharge Medication List QUEtiapine FUMARATE [SEROquel] 300 mg PO HS 09/15/13 [History] QUEtiapine [SEROquel] 50 mg PO QAM 07/25/15 [History] QUEtiapine [SEROquel] 100 mg PO W/LUNCH 07/25/15 [History] DULoxetine HCL [Cymbalta] 60 mg PO BID 06/02/16 [History] Albuterol Inhaler [Ventolin Hfa Inhaler] 2 puff INHALATION RT-Q6H PRN 06/30/16 [ History] Acetaminophen Tab [Tylenol] 650 mg PO Q6HR PRN tab 04/17/17 [Rx] Docusate [Colace] 100 mg PO BID cap 04/17/17 [Rx] Ergocalciferol [Vitamin D2 (DRISDOL)] 50,000 unit PO Q72H cap 04/17/17 [Rx] Folic Acid 1 mg PO DAILY #30 tablet 04/17/17 [Rx] Multivitamins, Thera [Multivitamin (formulary)] 1 tab PO DAILY #30 tablet [Rx] Nicotine 21Mg/24Hr Patch [Habitrol] 1 patch TRANSDERM DAILY@1200 #0 patch [Rx] Sodium Bicarbonate Tab 1,300 mg PO BID tab 04/17/17 [Rx] Thiamine [Vitamin B-1] 100 mg PO BID@1200,1700 tab 04/17/17 [Rx] amLODIPine [Norvasc] 5 mg PO BID tab 04/17/17 [Rx] cloNIDine 0.3 MG/24HR PATCH [Catapres-TTS] 1 patch TRANSDERM Q7D patch [Rx] hydrALAZINE HCL [Apresoline] 50 mg PO TID tab 04/17/17 [Rx] levETIRAcetam [Keppra] 1,000 mg PO Q12HR tab 04/17/17 [Rx] HYDROmorphone [Dilaudid] 2 mg PO Q4HR PRN #20 tab 04/18/17 [Rx] Follow up Appointment(s)/Referral(s): Chino Carrera MD [STAFF PHYSICIAN] - 3 Days [facility] [NON-STAFF] - 1 Week Dawit Fajardo MD [STAFF PHYSICIAN] - 2 Weeks Jose Carreon DO [STAFF PHYSICIAN] - 1 Week Patient Instructions/Handouts: Opioid Overdose (DC) Activity/Diet/Wound Care/Special Instructions: Hep C panel pending Dysphagia 3 cardiac diet. Aspriartion precautions. Fall precautions, up with assist. NO smoking, cessation information given. NO illegal drug use. Seizures Precautions cbc,bmp in 3 days Discharge Disposition: TRANSFER TO SNF/ECF
[2017-04-18 15:25] LABS: Hepatits C Virus RNA DETECTED (Not detected); Hepatits C Virus RNA, Quant 138 IU/mL (<12); LOG HCV IU/mL 2.14 (<1.08)
[2017-04-18 15:54] VITALS: BP 111/69; PULSE 56; TEMP 96.8
--- NOTE | 2017-04-24 12:07 | DS ---
DISCHARGE SUMMARY CHIEF COMPLAINT: General debility, malnutrition, alcoholism, drug abuse. HISTORY OF PRESENT ILLNESS AND PHYSICAL EXAM: Details of this man's history and physical can be found in the initial workup. LABORATORY STUDIES: While he was in a hospital he had laboratory studies, the details which can be found in the laboratory section of his chart. COURSE IN HOSPITAL: After admission he was placed in bedrest and remained semi comatose for several days. He started to be somewhat more alert and oriented, but never fully regained complete neurologic and cognitive function. Arrangements were made for him to go to a group home on the . FINAL DIAGNOSES: 1. Encephalopathy. 2. Alcoholism. 3. Cirrhosis. 4. Substance abuse. 5. Malnutrition. OPERATIONS: None. CONSULTATIONS: None. He is improved. LAURE / ELVIS: [id number] /
== END 2017-04-18 17:55 | DRG 917 ==
LOC: EC 18:31 → 6ICU 20:17 → 6SEL 04-13 11:01 → 6ICU 04-13 19:10 → 4MS4W 04-15 18:24
PROVIDERS: ADMIT Family Medicine; ATTEND Family Medicine
DX: T40.1X1A Poisoning by heroin, accidental (unintentional), initial encounter (principal); G92 Toxic encephalopathy; N17.0 Acute kidney failure with tubular necrosis; R40.20 Unspecified coma; E44.0 Moderate protein-calorie malnutrition; I47.1 Supraventricular tachycardia; E83.39 Other disorders of phosphorus metabolism; M62.82 Rhabdomyolysis; I48.0 Paroxysmal atrial fibrillation; E87.0 Hyperosmolality and hypernatremia; E87.2 Acidosis; F14.23 Cocaine dependence with withdrawal; G40.89 Other seizures; Z68.1 Body mass index [BMI] 19.9 or less, adult; E83.42 Hypomagnesemia; E83.51 Hypocalcemia; E87.5 Hyperkalemia; K74.60 Unspecified cirrhosis of liver; T40.5X1A Poisoning by cocaine, accidental (unintentional), initial encounter; Y92.9 Unspecified place or not applicable; B19.20 Unspecified viral hepatitis C without hepatic coma; E78.5 Hyperlipidemia, unspecified; E86.0 Dehydration; E86.1 Hypovolemia; E87.6 Hypokalemia; F10.20 Alcohol dependence, uncomplicated; F17.200 Nicotine dependence, unspecified, uncomplicated; G47.30 Sleep apnea, unspecified; I16.0 Hypertensive urgency; I51.7 Cardiomegaly; J44.9 Chronic obstructive pulmonary disease, unspecified; I12.9 Hypertensive chronic kidney disease with stage 1 through stage 4 chronic kidney disease, or unspecified chronic kidney disease; N18.9 Chronic kidney disease, unspecified; E66.9 Obesity, unspecified; F32.9 Major depressive disorder, single episode, unspecified; F41.9 Anxiety disorder, unspecified; M19.90 Unspecified osteoarthritis, unspecified site; R00.1 Bradycardia, unspecified; R07.9 Chest pain, unspecified; R45.1 Restlessness and agitation; G89.29 Other chronic pain; M54.9 Dorsalgia, unspecified; M25.569 Pain in unspecified knee; Z79.899 Other long term (current) drug therapy; Z88.5 Allergy status to narcotic agent; Z88.0 Allergy status to penicillin; Z96.653 Presence of artificial knee joint, bilateral; W19.XXXA Unspecified fall, initial encounter
CPT/HCPCS: 36415; 51702; 70450; 71045; 71046; 80048; 80053; 80074; 80306; 80320; 81001; 82306; 82330; 82550; 82553; 83520; 83605; 83735; 84100; 84295; 84443; 84484; 85025; 85610; 85730; 87086; 87390; 87522; 93005; 94640; 95819; 96361; 96365; 96366; 96368; 96372; 96375; 96376; 99291

== ENCOUNTER 2017-07-12 15:15 | Observation (INO) | payer MEDICARE, OTHER ==
[2017-07-12] MEDS ORDERED: SODIUM CHLORIDE 0.9% 1,000 ML IV STA (15:36)
[2017-07-12] MEDS ORDERED: KETOROLAC 30 MG/ML 1 ML VIAL IVP STA (15:36)
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
--- NOTE | 2017-07-12 16:09 | XR ---
EXAMINATION TYPE: XR chest 2V DATE OF EXAM: 07/12/2017 COMPARISON: Prior chest 04/14/2017 HISTORY: Chest pain and shortness of breath TECHNIQUE: Frontal and lateral views of the chest are obtained. FINDINGS: Heart is enlarged. There is been interval development of blunting of the left gastric angl e, obscuration of the left hemidiaphragm. No evident pneumothorax. Pulmonary vascularity and mela wit hin normal limits. Interstitium is increased. Prominent lung volumes suggest underlying COPD. The aor ta is dense. IMPRESSION: Correlate for pulmonary venous hypertension and interstitial edema, interval development of a pleural effusion and associated atelectasis versus edema, correlate to exclude pneumonia. Follo w-up recommended.
[2017-07-12 16:10] LABS: Basophils # (A) 0.1 k/uL (0-0.2); Basophils % (A) 1 %; Eosinophils # (A) 1.1 k/uL (0-0.7); Eosinophils % (A) 11 %; HGB 9.9 gm/dL (13.0-17.5); Hypochromasia Slight; Lymphocytes % (A) 21 %; MCH 29.1 pg (25.0-35.0); MCHC 32.1 g/dL (31.0-37.0); MCV 90.6 fL (80.0-100.0); Mean Platelet Volume 6.9; Monocytes # (A) 0.7 k/uL (0-1.0); Monocytes % (A) 7 %; Neutrophils # (A) 5.5 k/uL (1.3-7.7); Neutrophils % (A) 59 %; Platelet Count 240 k/uL (150-450); RBC 3.42 m/uL (4.30-5.90); RDW 15.5 % (11.5-15.5); WBC 9.4 k/uL (3.8-10.6)
[2017-07-12 16:23] LABS: Creatine Kinase 151 U/L (55-170)
[2017-07-12 16:25] LABS: ALT 25 U/L (21-72); AST 42 U/L (17-59); Albumin 3.9 g/dL (3.5-5.0); Alkaline Phosphatase 104 U/L (38-126); Amylase 71 U/L (30-110); Anion Gap 13 mmol/L; Blood Urea Nitrogen 17 mg/dL (9-20); Calcium 8.8 mg/dL (8.4-10.2); Carbon Dioxide 14 mmol/L (22-30); Chloride 112 mmol/L (98-107); Glucose 82 mg/dL (74-99); Lipase <10 U/L (23-300); Potassium 5.2 mmol/L (3.5-5.1); Sodium 139 mmol/L (137-145); Total Bilirubin 0.6 mg/dL (0.2-1.3); Total Protein 7.6 g/dL (6.3-8.2)
[2017-07-12 16:37] LABS: Creatine Kinase MB 0.8 ng/mL (0.0-2.4); Troponin I <0.012 ng/mL (0.000-0.034)
[2017-07-12 16:42] LABS: INR 1.1 (<1.2); Partial Thromboplastin Time 25.4 sec (22.0-30.0); Prothrombin Time 10.8 sec (9.0-12.0)
[2017-07-12 16:46] LABS: D-Dimer 4.5 mg/L FEU (<0.60)
[2017-07-12] MEDS ORDERED: RX INFO: IV CONTRAST WAS GIVEN 1 EACH MISC MISCELLANE PRN (16:46)
[2017-07-12] MEDS ORDERED: fentaNYL (PF) 50 MCG/ML 2 ML AMP IV STA (16:51)
[2017-07-12] MEDS ORDERED: HEPARIN SODIUM,PORCINE 5,000 UNIT/ML 1 ML VIAL IV STA ×2 (17:37→22:08)
[2017-07-12] MEDS ORDERED: NALOXONE 0.4 MG/ML 1 ML VIAL IV PRN (17:40)
[2017-07-12] MEDS ORDERED: ACETAMINOPHEN TAB 325 MG TAB PO PRN (17:43)
[2017-07-12] MEDS ORDERED: ALBUTEROL NEBULIZED 2.5 MG/3 ML INHALATION PRN (17:43)
[2017-07-12] MEDS ORDERED: ERGOCALCIFEROL 50,000 UNIT CAP PO SCH (17:45)
[2017-07-12] MEDS ORDERED: HEPARIN SODIUM,PORCINE/D5W PMX 25,000 UNIT in DEXTROSE/WATER 1 500ML.BAG IV SCH ×2 (17:45→22:30)
--- NOTE | 2017-07-12 21:41 | CT ---
EXAMINATION TYPE: CT angio chest DATE OF EXAM: 07/12/2017 COMPARISON: Prior CTA 07/17/2012 HISTORY: Left sided chest pain. CT DLP: 341 mGycm Automated exposure control for dose reduction was used. CONTRAST: CTA scan of the thorax is performed with IV Contrast, patient injected with 69 mL of Isovue 370, pulm onary embolism protocol. MIP images are created and reviewed. 3D reconstructed images are created o n an independent workstation and reviewed. FINDINGS: LUNGS: The lungs show emphysematous change at the apices. Interstitial lung disease is also present, there is interlobular septal pleural thickening, subpleural honeycombing, there is a left pleural eff usion with a somewhat lobular contour. Small pericardial effusion noted. The tracheobronchial tree is patent. AORTA: Root of the aorta is aneurysmal at 4.1 cm. The heart is enlarged and there are coronary arter y calcifications. Pulmonary artery is dilated. MEDIASTINUM: There is satisfactory enhancement of the pulmonary artery and its branches, there is no CT evidence for pulmonary embolism. There are no greater than 1 cm hilar or mediastinal lymph nodes. No pericardial effusion is seen. OTHER: Suspect a small hiatal hernia. The liver shows a nodular contour possibly due to cirrhosis. E xtensive calcification is present along the pancreas, correlate for chronic pancreatitis. Flowing ant erior osteophytes along the thoracic spine likely due to diffuse idiopathic skeletal hyperostosis. IMPRESSION: NO EVIDENT PULMONARY EMBOLUS. CORRELATE FOR PULMONARY ARTERY HYPERTENSION. LEFT PLEURAL EFFUSION IS L OBULAR IN CONTOUR, THERE MAY BE LOCULATION. EMPHYSEMA AND INTERSTITIAL LUNG DISEASE. AORTIC ANEURYSM. CIRRHOSIS, CORRELATE FOR CHRONIC PANCREATITIS. CARDIOMEGALY. CORONARY ARTERY DISEASE. Additional fin dings above.
[2017-07-12] MEDS ORDERED: HEPARIN SODIUM,PORCINE 5,000 UNIT/ML 1 ML VIAL IV PRN (22:19)
[2017-07-12] MEDS ORDERED: HEPARIN SODIUM,PORCINE 5,000 UNIT/ML 1 ML VIAL IV ONE (22:19)
[2017-07-12] MEDS ORDERED: cloNIDine 0.3 MG/24HR PATCH 1 PATCH PATCH TRANSDERM SCH (22:30)
[2017-07-12] MEDS: amLODIPine 5 MG TAB PO SCH (22:32)
[2017-07-12] MEDS: HYDROmorphone 0.5 MG/0.5 ML SYRINGE IVP PRN (22:32)
[2017-07-12] MEDS: SODIUM CHLORIDE 0.9% 1,000 ML IV SCH ×2 (22:33→23:09)
[2017-07-12] MEDS: hydrALAZINE HCL 50 MG TAB PO SCH (22:35)
[2017-07-12] MEDS: SODIUM BICARBONATE TAB 650 MG TAB PO SCH (22:35)
[2017-07-12] MEDS: levETIRAcetam 500 MG TAB PO SCH (22:36)
[2017-07-12 23:02] VITALS: BMI 23.7
[2017-07-12] MEDS: DOCUSATE 100 MG CAP PO SCH (23:08)
[2017-07-12] MEDS: DULoxetine HCL 60 MG CAPSULE.DR PO SCH (23:08)
[2017-07-12] MEDS: QUEtiapine 100 MG TAB PO SCH (23:08)
[2017-07-12] MEDS ORDERED: IPRATROPIUM-ALBUTEROL 3 ML NEB INHALATION PRN (23:31)
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
[2017-07-13 00:01] LABS: Creatine Kinase MB 0.7 ng/mL (0.0-2.4); Troponin I 0.016 ng/mL (0.000-0.034)
[2017-07-13] MEDS: HEPARIN SODIUM,PORCINE 5,000 UNIT/ML 1 ML VIAL SQ SCH ×4 (00:34→23:01)
[2017-07-13] MEDS: HYDROmorphone 0.5 MG/0.5 ML SYRINGE IVP PRN ×5 (03:15→23:18)
[2017-07-13 05:52] LABS: Basophils % (A) 1 %; Eosinophils # (A) 0.9 k/uL (0-0.7); Eosinophils % (A) 14 %; HCT 29.1 % (39.0-53.0); HGB 9.1 gm/dL (13.0-17.5); Hypochromasia Slight; Lymphocytes # (A) 1.8 k/uL (1.0-4.8); Lymphocytes % (A) 29 %; MCH 28.6 pg (25.0-35.0); MCHC 31.4 g/dL (31.0-37.0); MCV 90.9 fL (80.0-100.0); Monocytes # (A) 0.4 k/uL (0-1.0); Monocytes % (A) 7 %; Neutrophils # (A) 3.1 k/uL (1.3-7.7); Neutrophils % (A) 48 %; Platelet Count 246 k/uL (150-450); RDW 15.7 % (11.5-15.5); WBC 6.4 k/uL (3.8-10.6)
[2017-07-13] MEDS: HYDROmorphone 2 MG TAB PO PRN (06:13)
[2017-07-13 06:22] LABS: Creatine Kinase 102 U/L (55-170)
[2017-07-13 06:35] LABS: Creatine Kinase MB 0.7 ng/mL (0.0-2.4); Troponin I <0.012 ng/mL (0.000-0.034)
[2017-07-13] MEDS: amLODIPine 5 MG TAB PO SCH ×2 (07:36→20:20)
[2017-07-13] MEDS: DULoxetine HCL 60 MG CAPSULE.DR PO SCH ×2 (07:37→20:20)
[2017-07-13] MEDS: DOCUSATE 100 MG CAP PO SCH ×2 (07:37→20:20)
[2017-07-13] MEDS: hydrALAZINE HCL 50 MG TAB PO SCH ×3 (07:37→21:23)
[2017-07-13] MEDS: levETIRAcetam 500 MG TAB PO SCH ×2 (07:38→20:20)
[2017-07-13] MEDS: FOLIC ACID 1 MG TAB PO SCH (07:38)
[2017-07-13] MEDS: QUEtiapine 50 MG TAB PO SCH (07:38)
[2017-07-13] MEDS: SODIUM BICARBONATE TAB 650 MG TAB PO SCH ×2 (07:38→20:21)
[2017-07-13] MEDS: MULTIVITAMINS, THERA 1 EACH TAB PO SCH (07:38)
[2017-07-13] MEDS: THIAMINE 100 MG TAB PO SCH ×2 (12:34→15:50)
[2017-07-13] MEDS: NICOTINE 21MG/24HR PATCH TRANSDERM SCH (12:34)
[2017-07-13] MEDS: QUEtiapine 100 MG TAB PO SCH ×2 (12:35→20:21)
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
[2017-07-13] MEDS: methylPREDNISolone SOD SUCCI 40 MG/ML 1 ML VIAL IV SCH ×2 (16:06→23:01)
[2017-07-13 21:18] LABS: Glucose,Whole Blood 146 mg/dL (75-99)
[2017-07-13] MEDS: INSULIN ASPART 100 UNIT/ML 1 ML 10 ML VIAL SQ SCH (21:23)
--- NOTE | 2017-07-14 00:37 | P.PN ---
Subjective Progress Note Date: 07/13/17 Principal diagnosis: Left-sided pleuritic chest pain and small effusion Patient is a 62-year-old male with a known history of COPD, hypertension, obstructive sleep apnea with no CPAP machine at home and chronic back pain as well as previous history of alcohol abuse came to ER with complaints of left- sided chest pain for the past one half week. Patient also says that he felt dizzy and lightheaded. Cough with dark colored sputum production. He denies any trauma fevers chills sweats he has a slight cough which is chronic. no nausea vomiting diarrhea constipation. He states the pain does get worse when he takes a deep breath or moves he states is 9 out of 10 and sharp in nature. He does smoke 2 small cigars per day he denies any other modifying factors. He does use an updraft/nebulizer with albuterol this is not helped. Denied any fever or chills. states he used cocaine 2 days ago. He states he has used marijuana on occasion. Chest x-ray correlate for pulmonary hypertension and interstitial edema. Interval development of pleural effusion with associated atelectasis versus edema, correlate to exclude pneumonia. EKG sinus rhythm with PACs CTA chest showed no evidence of pulmonary embolism. Left-sided pleural effusion possibly loculated. aortic aneurysm. Liver cirrhosis. Correlate for chronic pancreatitis. Cardiomegaly and coronary artery disease. 07/13/2017 Patient is still having left-sided chest pain worsens with breathing. Ultrasound of CHEST WAS ORDERED. Patient was seen by pulmonary. Otherwise patient is being continued on pain management. Patient is requesting IV pain medications. Otherwise no fever no chills. No acute overnight issues. No nausea vomiting or abdominal pain. No diarrhea no dysuria. All other review of systems negative except the above Current medications reviewed Objective - Vital Signs Vital signs: Vital Signs Temp 98.4 F 07/13/17 12:00 Pulse 63 07/13/17 12:00 Resp 18 07/13/17 12:00 BP 130/66 07/13/17 12:00 Pulse Ox 96 07/13/17 12:00 Intake & Output 07/12/17 07/13/17 07/13/17 18:59 06:59 18:59 Intake Total 480 240 Output Total 300 700 Balance 180 -460 Weight 79.379 kg 79.7 kg Intake: Oral 480 240 Output: Urine 300 700 Other: Voiding Method Urinal Urinal # Voids 1 - Exam PHYSICAL EXAMINATION: Patient is lying in the bed comfortably, no acute distress, awake alert and oriented.. HEENT: Normocephalic. Neck is supple. Pupils reactive. Nostrils clear. Oral cavity is moist. Ears reveal no drainage. Neck reveals no JVD, carotid bruits, or thyromegaly. CHEST EXAMINATION: Trachea is central. Symmetrical expansion. Left basilar crackles. Lung paul clear to auscultation and percussion. CARDIAC: Normal S1, S2 with no gallops. No murmurs ABDOMEN: Soft. Bowel sounds normal. No organomegaly. No abdominal bruits. Extremities: reveal no edema. No clubbing or cyanosis Neurologically awake, alert, oriented x3 with well-coordinated movements. No focal deficits noted Skin: No rash or skin lesions. Psychiatric: Coperative. Nonsuicidal Musculoskeletal: No joint swelling or deformity. Normal range of motion. - Labs CBC & Chem 7: 07/13/17 05:36 07/12/17 15:45 Labs: Abnormal Lab Results - Last 24 Hours (Table) 07/12/17 07/12/17 07/12/17 Range/Units 15:45 15:45 15:45 RBC 3.42 L (4.30-5.90) m/uL Hgb 9.9 L (13.0-17.5) gm/dL Hct 31.0 L (39.0-53.0) % RDW (11.5-15.5) % Eosinophils # 1.1 H (0-0.7) k/uL D-Dimer 4.50 H (<0.60) mg/L FEU Potassium 5.2 H (3.5-5.1) mmol/L Chloride 112 H (98-107) mmol/L Carbon Dioxide 14 L (22-30) mmol/L Lipase <10 L (23-300) U/L 07/13/17 Range/Units 05:36 RBC 3.20 L (4.30-5.90) m/uL Hgb 9.1 L (13.0-17.5) gm/dL Hct 29.1 L (39.0-53.0) % RDW 15.7 H (11.5-15.5) % Eosinophils # 0.9 H (0-0.7) k/uL D-Dimer (<0.60) mg/L FEU Potassium (3.5-5.1) mmol/L Chloride (98-107) mmol/L Carbon Dioxide (22-30) mmol/L Lipase (23-300) U/L Assessment and Plan Assessment: Left-sided pleuritic chest pain. Likely due to pleural effusion. Negative for PE. Troponin 3 negative Elevated d-dimer. CTA negative for PE Left lower pleural effusion possibly loculated. Ultrasound of chest was ordered Hypertension uncontrolled. Non-anion gap metabolic acidosis History of COPD stable Obstructive sleep apnea. Currently no CPAP machine at home Chronic pancreatitis History of seizures due to alcohol withdrawals Chronic back pain and bilateral knee and leg pain Previous history of cardiac catheterization and no PCI Anxiety depression and bipolar disorder Currently every day smoker Previous history of alcohol abuse. Quit 10 years ago aortic root aneurysm 4.1 cm Liver cirrhosis due to history of alcohol abuse. DVT prophylaxis with heparin subcu Plan: Patient was continued on heparin drip. CTA is negative for pulmonary embolism. We will change to heparin subcu for DVT prophylaxis. Pulmonary is following. Ultrasound of the chest was ordered for pleural effusion. Continue with home blood pressure medications and pain management. Will follow closely and further recommendations based on the clinical course. Prognosis is guarded. Time with Patient: Greater than 30
[2017-07-14] MEDS: HYDROmorphone 0.5 MG/0.5 ML SYRINGE IVP PRN ×7 (05:31→23:23)
[2017-07-14 06:21] LABS: Glucose,Whole Blood 140 mg/dL (75-99)
[2017-07-14] MEDS: INSULIN ASPART 100 UNIT/ML 1 ML 10 ML VIAL SQ SCH ×4 (06:35→21:02)
[2017-07-14 07:40] LABS: Basophils % (A) 0 %; Eosinophils # (A) 0.1 k/uL (0-0.7); Eosinophils % (A) 2 %; HCT 31.4 % (39.0-53.0); Lymphocytes # (A) 0.7 k/uL (1.0-4.8); Lymphocytes % (A) 12 %; MCH 28.7 pg (25.0-35.0); MCV 89.6 fL (80.0-100.0); Mean Platelet Volume 7.8; Monocytes # (A) 0.1 k/uL (0-1.0); Monocytes % (A) 2 %; Neutrophils # (A) 4.9 k/uL (1.3-7.7); Neutrophils % (A) 84 %; Platelet Count 278 k/uL (150-450); RDW 15.6 % (11.5-15.5); WBC 5.8 k/uL (3.8-10.6)
--- NOTE | 2017-07-14 08:04 | P.PN ---
Subjective Progress Note Date: 07/14/17 Principal diagnosis: Pleuritic-type chest pain with left inguinal pain. This is a continue present 62-year-old black male essentially meant for chest pain found to have negative pulmonary embolus but left-sided lobular pleural effusion. The patient is now scheduled for chest ultrasound this morning. He is also complaining of chronic left inguinal pain. He has had previous herniorrhaphy in the past. No significant fever or chills. No significant nausea or vomiting. Tolerating diet appropriately with no bowel movement issues. He is unable to tell me who did the previous hernia repair. Objective - Vital Signs Vital signs: Vital Signs Temp 98.0 F 07/14/17 04:00 Pulse 64 07/14/17 04:00 Resp 18 07/14/17 04:00 BP 166/92 07/14/17 04:00 Pulse Ox 100 07/14/17 07:12 Intake & Output 07/13/17 07/14/17 07/14/17 18:59 06:59 18:59 Intake Total 1425 160 Output Total 1000 400 Balance 425 -240 Weight 76.5 kg Intake: IV 160 0.9 160 Oral 1425 Output: Urine 1000 400 Other: Voiding Method Urinal Urinal - Constitutional General appearance: Present: average body habitus - EENT Eyes: Absent: abnormal pupil - Respiratory Respiratory: bilateral: rhonchi - Cardiovascular Rhythm: regular Heart sounds: normal: S1, S2 Abnormal Heart Sounds: Absent: S3 Gallop - Gastrointestinal General gastrointestinal: Present: soft, tenderness - Neurologic Neurologic: Present: CNII-XII intact. Absent: focal deficits - Labs CBC & Chem 7: 07/14/17 06:50 07/12/17 15:45 Labs: Abnormal Lab Results - Last 24 Hours (Table) 07/13/17 07/14/17 07/14/17 Range/Units 21:07 06:07 06:50 RBC 3.50 L (4.30-5.90) m/uL Hgb 10.0 L (13.0-17.5) gm/dL Hct 31.4 L (39.0-53.0) % RDW 15.6 H (11.5-15.5) % Lymphocytes # 0.7 L (1.0-4.8) k/uL POC Glucose (mg/dL) 146 H 140 H (75-99) mg/dL Assessment and Plan (1) Deep inguinal pain, left Current Visit: Yes Status: Acute Code(s): R10.30 - LOWER ABDOMINAL PAIN, UNSPECIFIED SNOMED Code(s): 261825726 (2) Atypical chest pain Current Visit: Yes Status: Acute Code(s): R07.89 - OTHER CHEST PAIN SNOMED Code(s): 806303738 (3) Chest pain Current Visit: No Status: Acute Code(s): R07.9 - CHEST PAIN, UNSPECIFIED SNOMED Code(s): 40053490 Plan: Await chest ultrasound this morning. Appreciate pulmonology input. Anticipate discharge once the decision is made to do inpatient versus outpatient thoracentesis. We'll also have surgical evaluation as an outpatient for the left inguinal pain. Time with Patient: Less than 30
[2017-07-14] MEDS: HEPARIN SODIUM,PORCINE 5,000 UNIT/ML 1 ML VIAL SQ SCH ×3 (08:45→23:23)
[2017-07-14] MEDS: SODIUM BICARBONATE TAB 650 MG TAB PO SCH ×2 (08:46→20:39)
[2017-07-14] MEDS: DULoxetine HCL 60 MG CAPSULE.DR PO SCH ×2 (08:46→20:38)
[2017-07-14] MEDS: methylPREDNISolone SOD SUCCI 40 MG/ML 1 ML VIAL IV SCH ×3 (08:46→23:23)
[2017-07-14] MEDS: DOCUSATE 100 MG CAP PO SCH ×2 (08:46→20:38)
[2017-07-14] MEDS: levETIRAcetam 500 MG TAB PO SCH ×2 (08:47→20:38)
[2017-07-14] MEDS: FOLIC ACID 1 MG TAB PO SCH (08:47)
[2017-07-14] MEDS: hydrALAZINE HCL 50 MG TAB PO SCH ×3 (08:47→21:03)
[2017-07-14] MEDS: QUEtiapine 50 MG TAB PO SCH (08:47)
[2017-07-14] MEDS: amLODIPine 5 MG TAB PO SCH (08:47)
--- NOTE | 2017-07-14 08:47 | US ---
EXAMINATION TYPE: US chest DATE OF EXAM: 07/14/2017 COMPARISON: CT 07/12/2017 CLINICAL HISTORY: 62-year-old male Markings for thoracentesis by pulmonary staff. TECHNIQUE: Multiple sonographic images of the bilateral lower hemithoraces for assessment of pleural effusion. FINDINGS: EXAM MEASUREMENTS: Right Pleural Effusion fluid pocket: 0 cm Left Pleural Effusion fluid pocket: 5.3 x 4.9 x 3.7 cm Left skin surface to fluid distance: 2.5 cm, Skin to middle of pocket = 3.9 cm Left side marked for possible thoracentesis outside the dept. Pulmonologists are able to review the images in the patient?s EMR. IMPRESSIONS: There is only a small left pleural effusion. Note that thoracentesis may be difficult. No pleural eff usion on the right.
[2017-07-14] MEDS: MULTIVITAMINS, THERA 1 EACH TAB PO SCH (11:51)
[2017-07-14] MEDS: NICOTINE 21MG/24HR PATCH TRANSDERM SCH (11:51)
[2017-07-14] MEDS: QUEtiapine 100 MG TAB PO SCH ×2 (11:51→20:39)
[2017-07-14] MEDS: THIAMINE 100 MG TAB PO SCH ×2 (11:51→17:33)
[2017-07-14 11:59] LABS: Glucose,Whole Blood 169 mg/dL (75-99)
[2017-07-14] MEDS ORDERED: amLODIPine 5 MG TAB PO STA (13:25)
--- NOTE | 2017-07-14 14:32 | P.PN ---
Subjective Progress Note Date: 07/14/17 Principal diagnosis: No chest pain, pulmonary embolism Progress note dated 07/14/2017 This is a 62-year-old black male with history of multiple medical problems including COPD essential hypertension sleep apnea syndrome chronic pain syndrome history of chronic alcohol abuse and liver cirrhosis SVT previous history of seizure disorder pancreatitis severe chemical/acid peng the chest DJD bipolar disorder chronic tobacco dependence on ongoing drug abuse and previous history of mental status changes secondary to drug overdose. Yesterday , the patient's computed tomography scan showed evidence of a relatively smaller left-sided effusion. Ultrasound was ordered. We may go ahead and have interventional radiology do a diagnostic thoracentesis. There does not appear to be a lot of fluid there. The patient has a number of complaints today including left-sided chest discomfort which is clearly pleuritic in nature as well as pain in the right and left groin area. He has a previous history of a left inguinal hernia repaired surgically. Objective - Vital Signs Vital signs: Vital Signs Temp 97.3 F L 07/14/17 11:23 Pulse 64 07/14/17 11:46 Resp 16 07/14/17 11:46 BP 190/94 07/14/17 11:23 Pulse Ox 97 07/14/17 11:23 Intake & Output 07/13/17 07/14/17 07/14/17 18:59 06:59 18:59 Intake Total 1425 160 360 Output Total 1000 400 900 Balance 425 -240 -540 Weight 76.5 kg Intake: IV 160 0.9 160 Oral 1425 360 Output: Urine 1000 400 900 Other: Voiding Method Urinal Urinal Toilet # Voids 1 - Exam Physical Exam: Revealed a 62-year-old male in no distress. Head: Atraumatic, normocephalic. HEENT:[ PERRLA, EOMI. Neck is supple.] [No neck masses.] [No thyromegaly.] [No JVD.] Moist mucous membranes, throat is clear. Chest: [Slightly diminished breath sounds at the left base, no crackles or rhonchi or wheezes noted, no chest wall tenderness..] Cardiac Exam: [Normal S1 and S2, no S3 gallop, no murmur.] Abdomen: [Soft, nontender, no megaly, no rebound, no guarding, normal bowel sounds.] Extremities: [No clubbing, no edema, no cyanosis.] Neurological Exam: [No focal neurologic deficit.] Lymphatics: no lymphadenopathy. Psychiatric: Normal mood affect and mental status examination. Skin: No rashes, no erythema - Labs CBC & Chem 7: 07/14/17 06:50 07/12/17 15:45 Labs: Abnormal Lab Results - Last 24 Hours (Table) 07/13/17 07/14/17 07/14/17 Range/Units 21:07 06:07 06:50 RBC 3.50 L (4.30-5.90) m/uL Hgb 10.0 L (13.0-17.5) gm/dL Hct 31.4 L (39.0-53.0) % RDW 15.6 H (11.5-15.5) % Lymphocytes # 0.7 L (1.0-4.8) k/uL POC Glucose (mg/dL) 146 H 140 H (75-99) mg/dL 07/14/17 Range/Units 11:49 RBC (4.30-5.90) m/uL Hgb (13.0-17.5) gm/dL Hct (39.0-53.0) % RDW (11.5-15.5) % Lymphocytes # (1.0-4.8) k/uL POC Glucose (mg/dL) 169 H (75-99) mg/dL Assessment and Plan Assessment: Assessment 1 left-sided pleuritic chest pain, secondary to left pleural effusion, most likely parapneumonic in nature. Seems to be loculated. Was not present on x- rays back in March of 2017. 2 loculated left pleural effusion is strongly suspected. 3 COPD, presently inactive. 4 obstructive sleep apnea syndrome, noncompliant with CPAP. 5 chronic pancreatitis 6 seizure disorder 7 chronic pain syndrome 8 bipolar disorder 9 liver cirrhosis secondary to alcohol abuse Plan: Plan dated 07/14/2017 The patient is currently receiving Solu-Medrol. In addition, ultrasound the chest revealed a small amount of fluid which may be loculated. We'll have interventional radiology consider doing a diagnostic thoracentesis. The patient also will be seen by surgery for left inguinal pain. He had a previous history of inguinal hernia repair. Additional recommendations and suggestions are forthcoming. Prognosis is guarded. Time with Patient: Less than 30
[2017-07-14 14:58] LABS: Total Protein 6.7 g/dL (6.3-8.2)
[2017-07-14 17:11] LABS: Glucose,Whole Blood 169 mg/dL (75-99)
[2017-07-14 20:58] LABS: Glucose,Whole Blood 165 mg/dL (75-99)
[2017-07-15] MEDS: HYDROmorphone 0.5 MG/0.5 ML SYRINGE IVP PRN ×2 (02:47→06:21)
[2017-07-15 06:16] LABS: Glucose,Whole Blood 122 mg/dL (75-99)
[2017-07-15] MEDS: INSULIN ASPART 100 UNIT/ML 1 ML 10 ML VIAL SQ SCH ×4 (06:23→21:09)
--- NOTE | 2017-07-15 06:59 | P.PN ---
Subjective Principal diagnosis: Pleuritic-type chest pain with left inguinal pain. This is a continue present 62-year-old black male essentially admitted for chest pain rule out myocardial infarction and pulmonary embolus. The patient is now stable. However, there is left-sided pleural effusion which pulmonology is decided to try to do a ultrasound guided thoracentesis, which will be done today. Patient is a symptomatically except for inguinal pain. General surgery has now been consulted. Anticipate discharge in the a.m. assuming thoracentesis recovery is nominal. No voiding difficulties otherwise stated. Objective - Vital Signs Vital signs: Vital Signs Temp 97.2 F L 07/15/17 04:00 Pulse 69 07/15/17 04:00 Resp 18 07/15/17 04:00 BP 168/70 07/15/17 04:00 Pulse Ox 98 07/15/17 04:00 Intake & Output 07/14/17 07/14/17 07/15/17 06:59 18:59 06:59 Intake Total 160 360 Output Total 400 1300 Balance -240 -940 Weight 76.5 kg 78.2 kg Intake: IV 160 0.9 160 Oral 360 Output: Urine 400 1300 Other: Voiding Method Urinal Toilet Toilet # Voids 1 1 - Constitutional General appearance: Present: average body habitus - EENT Eyes: Absent: abnormal pupil - Respiratory Respiratory: bilateral: CTA - Cardiovascular Rhythm: regular Heart sounds: normal: S1, S2 Abnormal Heart Sounds: Absent: S3 Gallop - Gastrointestinal General gastrointestinal: Present: soft. Absent: tenderness - Neurologic Neurologic: Present: CNII-XII intact - Labs CBC & Chem 7: 07/14/17 06:50 07/12/17 15:45 Labs: Abnormal Lab Results - Last 24 Hours (Table) 07/14/17 07/14/17 07/14/17 Range/Units 06:50 11:49 16:49 RBC 3.50 L (4.30-5.90) m/uL Hgb 10.0 L (13.0-17.5) gm/dL Hct 31.4 L (39.0-53.0) % RDW 15.6 H (11.5-15.5) % Lymphocytes # 0.7 L (1.0-4.8) k/uL POC Glucose (mg/dL) 169 H 169 H (75-99) mg/dL 07/14/17 07/15/17 Range/Units 20:51 06:13 RBC (4.30-5.90) m/uL Hgb (13.0-17.5) gm/dL Hct (39.0-53.0) % RDW (11.5-15.5) % Lymphocytes # (1.0-4.8) k/uL POC Glucose (mg/dL) 165 H 122 H (75-99) mg/dL Assessment and Plan (1) Deep inguinal pain, left Current Visit: Yes Status: Acute Code(s): R10.30 - LOWER ABDOMINAL PAIN, UNSPECIFIED SNOMED Code(s): 263799061 (2) Atypical chest pain Current Visit: Yes Status: Acute Code(s): R07.89 - OTHER CHEST PAIN SNOMED Code(s): 749397985 (3) Chest pain Current Visit: No Status: Acute Code(s): R07.9 - CHEST PAIN, UNSPECIFIED SNOMED Code(s): 08337011 Plan: Await thoracentesis attempts today. Appreciate surgical input on left inguinal pain which is chronic. Anticipate discharge in a.m. Time with Patient: Less than 30
[2017-07-15 07:31] LABS: Basophils % (A) 0 %; Eosinophils % (A) 0 %; HCT 31.4 % (39.0-53.0); HGB 9.9 gm/dL (13.0-17.5); Hypochromasia Slight; Lymphocytes # (A) 0.8 k/uL (1.0-4.8); Lymphocytes % (A) 8 %; MCH 28.7 pg (25.0-35.0); MCHC 31.7 g/dL (31.0-37.0); MCV 90.7 fL (80.0-100.0); Monocytes # (A) 0.2 k/uL (0-1.0); Monocytes % (A) 2 %; Neutrophils # (A) 9.3 k/uL (1.3-7.7); Neutrophils % (A) 89 %; Platelet Count 275 k/uL (150-450); RBC 3.46 m/uL (4.30-5.90); RDW 15.7 % (11.5-15.5); WBC 10.4 k/uL (3.8-10.6)
[2017-07-15] MEDS: HEPARIN SODIUM,PORCINE 5,000 UNIT/ML 1 ML VIAL SQ SCH ×3 (08:17→23:40)
[2017-07-15] MEDS: methylPREDNISolone SOD SUCCI 40 MG/ML 1 ML VIAL IV SCH ×3 (08:17→23:40)
[2017-07-15] MEDS: DULoxetine HCL 60 MG CAPSULE.DR PO SCH ×2 (08:58→21:09)
[2017-07-15] MEDS: DOCUSATE 100 MG CAP PO SCH ×2 (08:59→21:09)
[2017-07-15] MEDS: hydrALAZINE HCL 50 MG TAB PO SCH ×3 (08:59→21:11)
[2017-07-15] MEDS: SODIUM BICARBONATE TAB 650 MG TAB PO SCH ×2 (08:59→21:10)
[2017-07-15] MEDS: levETIRAcetam 500 MG TAB PO SCH ×2 (08:59→21:09)
[2017-07-15] MEDS: amLODIPine 10 MG TAB PO SCH (09:00)
[2017-07-15] MEDS: FOLIC ACID 1 MG TAB PO SCH (09:00)
[2017-07-15] MEDS: QUEtiapine 50 MG TAB PO SCH (09:00)
[2017-07-15] MEDS: HYDROmorphone 2 MG TAB PO PRN ×3 (10:25→21:09)
--- NOTE | 2017-07-15 11:20 | P.PN ---
Subjective Progress Note Date: 07/15/17 Principal diagnosis: No chest pain, pulmonary embolism Progress note dated 07/14/2017 This is a 62-year-old black male with history of multiple medical problems including COPD essential hypertension sleep apnea syndrome chronic pain syndrome history of chronic alcohol abuse and liver cirrhosis SVT previous history of seizure disorder pancreatitis severe chemical/acid peng the chest DJD bipolar disorder chronic tobacco dependence on ongoing drug abuse and previous history of mental status changes secondary to drug overdose. Yesterday , the patient's computed tomography scan showed evidence of a relatively smaller left-sided effusion. Ultrasound was ordered. We may go ahead and have interventional radiology do a diagnostic thoracentesis. There does not appear to be a lot of fluid there. The patient has a number of complaints today including left-sided chest discomfort which is clearly pleuritic in nature as well as pain in the right and left groin area. He has a previous history of a left inguinal hernia repaired surgically. Progress note dated 07/15/2017 62-year-old white male with history of multiple medical problems including COPD essential hypertension sleep apnea syndrome chronic pain syndrome chronic alcohol abuse liver cirrhosis SVT seizure disorder pancreatitis bipolar disorder chronic tobacco dependence drug abuse and mental status changes. The patient had 2 complaints including a pleuritic type pain pain in the left chest area. There is a small left-sided effusion. We asked the interventional radiology to consider a diagnostic thoracentesis. In addition, the patient has some pain in his left groin area. The primary was going to ask with the surgeons to take a look at the patient. He apparently had a previous history of an inguinal hernia. He was recently transferred out from the sixth floor to the fourth floor. Not complaining of too much pain at this time. Objective - Vital Signs Vital signs: Vital Signs Temp 97.1 F L 07/15/17 08:10 Pulse 67 07/15/17 08:10 Resp 16 07/15/17 08:10 BP 175/95 07/15/17 08:10 Pulse Ox 99 07/15/17 08:10 Intake & Output 07/14/17 07/15/17 07/15/17 18:59 06:59 18:59 Intake Total 360 Output Total 1300 500 Balance -940 -500 Weight 78.2 kg Intake: Oral 360 Output: Urine 1300 500 Other: Voiding Method Toilet Toilet # Voids 1 1 - Exam Physical Exam: Revealed a 62-year-old male in no distress. Head: Atraumatic, normocephalic. HEENT:[ PERRLA, EOMI. Neck is supple.] [No neck masses.] [No thyromegaly.] [No JVD.] Moist mucous membranes, throat is clear. Chest: [Slightly diminished breath sounds at the left base, no crackles or rhonchi or wheezes noted, no chest wall tenderness..] Cardiac Exam: [Normal S1 and S2, no S3 gallop, no murmur.] Abdomen: [Soft, nontender, no megaly, no rebound, no guarding, normal bowel sounds.] Extremities: [No clubbing, no edema, no cyanosis.] Neurological Exam: [No focal neurologic deficit.] Lymphatics: no lymphadenopathy. Psychiatric: Normal mood affect and mental status examination. Skin: No rashes, no erythema - Labs CBC & Chem 7: 07/15/17 06:29 07/12/17 15:45 Labs: Abnormal Lab Results - Last 24 Hours (Table) 07/14/17 07/14/17 07/14/17 Range/Units 11:49 16:49 20:51 RBC (4.30-5.90) m/uL Hgb (13.0-17.5) gm/dL Hct (39.0-53.0) % RDW (11.5-15.5) % Neutrophils # (1.3-7.7) k/uL Lymphocytes # (1.0-4.8) k/uL POC Glucose (mg/dL) 169 H 169 H 165 H (75-99) mg/dL 07/15/17 07/15/17 Range/Units 06:13 06:29 RBC 3.46 L (4.30-5.90) m/uL Hgb 9.9 L (13.0-17.5) gm/dL Hct 31.4 L (39.0-53.0) % RDW 15.7 H (11.5-15.5) % Neutrophils # 9.3 H (1.3-7.7) k/uL Lymphocytes # 0.8 L (1.0-4.8) k/uL POC Glucose (mg/dL) 122 H (75-99) mg/dL Assessment and Plan Assessment: Assessment 1 left-sided pleuritic chest pain, secondary to left pleural effusion, most likely parapneumonic in nature. Seems to be loculated. Was not present on x- rays back in March of 2017. 2 loculated left pleural effusion is strongly suspected. 3 COPD, presently inactive. 4 obstructive sleep apnea syndrome, noncompliant with CPAP. 5 chronic pancreatitis 6 seizure disorder 7 chronic pain syndrome 8 bipolar disorder 9 liver cirrhosis secondary to alcohol abuse Plan: Plan dated 07/14/2017 The patient is currently receiving Solu-Medrol. In addition, ultrasound the chest revealed a small amount of fluid which may be loculated. We'll have interventional radiology consider doing a diagnostic thoracentesis. The patient also will be seen by surgery for left inguinal pain. He had a previous history of inguinal hernia repair. Additional recommendations and suggestions are forthcoming. Prognosis is guarded. Plan dated 07/15/2017 According to the primary service, the patient will be sent to interventional radiology for diagnostic thoracentesis. The fluid pocket on the left side is relatively small. It may relate to a parapneumonic effusion or benign effusion. In addition, surgery is apparently going to see the patient for his left inguinal pain. He apparently has history of inguinal hernia repair. He likely states that he will be discharged tomorrow. No additional recommendations are made. No follow-up with me as necessary. Time with Patient: Less than 30
[2017-07-15] MEDS: THIAMINE 100 MG TAB PO SCH ×2 (11:47→16:56)
[2017-07-15] MEDS: MULTIVITAMINS, THERA 1 EACH TAB PO SCH (11:47)
[2017-07-15 12:54] LABS: Glucose,Whole Blood 133 mg/dL (75-99)
[2017-07-15] MEDS: QUEtiapine 100 MG TAB PO SCH ×2 (13:30→21:10)
[2017-07-15] MEDS: NICOTINE 21MG/24HR PATCH TRANSDERM SCH (13:30)
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
--- NOTE | 2017-07-15 16:29 | US ---
Discontinued thoracentesis HISTORY: Pleural effusion Real-time sonography shows small pleural effusion in the left posterior chest. Due to risk of damage to the lung, exam was aborted. No thoracentesis performed at this time. Consider repeat consult for i ncreasing effusion IMPRESSION: Discontinued thoracentesis
[2017-07-15 17:18] LABS: Glucose,Whole Blood 182 mg/dL (75-99)
[2017-07-15 21:10] LABS: Glucose,Whole Blood 221 mg/dL (75-99)
[2017-07-16] MEDS: HYDROmorphone 2 MG TAB PO PRN ×2 (01:19→08:08)
[2017-07-16 06:02] VITALS: BP 150/87; PULSE 65; RESP 16; TEMP 97
[2017-07-16 07:15] LABS: Glucose,Whole Blood 109 mg/dL (75-99)
[2017-07-16] MEDS: INSULIN ASPART 100 UNIT/ML 1 ML 10 ML VIAL SQ SCH (07:39)
[2017-07-16] MEDS: SODIUM BICARBONATE TAB 650 MG TAB PO SCH (08:07)
[2017-07-16] MEDS: methylPREDNISolone SOD SUCCI 40 MG/ML 1 ML VIAL IV SCH (08:07)
[2017-07-16] MEDS: HEPARIN SODIUM,PORCINE 5,000 UNIT/ML 1 ML VIAL SQ SCH (08:07)
--- NOTE | 2017-07-16 08:07 | P.DS ---
Providers Date of admission: 07/12/17 17:40 Attending physician: Patrick Rogers Consults: 07/12/17 23:20 Consult Physician Routine Consulting Provider: Maria Eugenia Venegas Consult Reason/Comments: Left pleural effusion Do you want consulting provider notified?: Yes, Notify in am 07/14/17 18:47 Consult Physician Routine Consulting Provider: Jhony Grayson Consult Reason/Comments: left inguinal pain,history of hernia repair Do you want consulting provider notified?: Yes, Notify in am Primary care physician: Patrick Rogers - Discharge Diagnosis(es) (1) Deep inguinal pain, left Current Visit: Yes Status: Acute (2) Atypical chest pain Current Visit: Yes Status: Acute (3) Chest pain Current Visit: No Status: Acute Hospital Course: This is a discharge summary 62-year-old black male essentially admitted for chest pain. PE was ruled out myocardial infarctions ruled out. Pleural effusion. Pulmonology, was consulted and decided to try to do a thoracentesis ultrasound-guided, this was poor outcome secondary to minimal fluid. The patient is discharged in stable condition. He has chronic elements of pain and left inguinal pain. Surgery was consulted and did not find any surgical need at this time. The patient would discharge follow-up with me in one week. Patient Condition at Discharge: Stable Plan - Discharge Summary Discharge Rx Participant: No New Discharge Prescriptions: New amLODIPine [Norvasc] 10 mg PO DAILY #30 tab Continue QUEtiapine FUMARATE [SEROquel] 300 mg PO HS QUEtiapine [SEROquel] 100 mg PO W/LUNCH QUEtiapine [SEROquel] 50 mg PO QAM DULoxetine HCL [Cymbalta] 60 mg PO BID Albuterol Inhaler [Ventolin Hfa Inhaler] 2 puff INHALATION RT-Q6H PRN PRN Reason: Shortness Of Breath cloNIDine 0.3 MG/24HR PATCH [Catapres-TTS] 1 patch TRANSDERM Q7D patch Folic Acid 1 mg PO DAILY #30 tablet hydrALAZINE HCL [Apresoline] 50 mg PO TID tab Multivitamins, Thera [Multivitamin (formulary)] 1 tab PO DAILY #30 tablet Sodium Bicarbonate Tab 1,300 mg PO BID tab Ibuprofen 800 mg PO TID Discontinued amLODIPine [Norvasc] 5 mg PO BID tab Discharge Medication List QUEtiapine FUMARATE [SEROquel] 300 mg PO HS 09/15/13 [History] QUEtiapine [SEROquel] 50 mg PO QAM 07/25/15 [History] QUEtiapine [SEROquel] 100 mg PO W/LUNCH 07/25/15 [History] DULoxetine HCL [Cymbalta] 60 mg PO BID 06/02/16 [History] Albuterol Inhaler [Ventolin Hfa Inhaler] 2 puff INHALATION RT-Q6H PRN 06/30/16 [ History] Folic Acid 1 mg PO DAILY #30 tablet 04/17/17 [Rx] Multivitamins, Thera [Multivitamin (formulary)] 1 tab PO DAILY #30 tablet [Rx] Sodium Bicarbonate Tab 1,300 mg PO BID tab 04/17/17 [Rx] cloNIDine 0.3 MG/24HR PATCH [Catapres-TTS] 1 patch TRANSDERM Q7D patch [Rx] hydrALAZINE HCL [Apresoline] 50 mg PO TID tab 04/17/17 [Rx] Ibuprofen 800 mg PO TID 07/12/17 [History] amLODIPine [Norvasc] 10 mg PO DAILY #30 tab 07/16/17 [Rx] Follow up Appointment(s)/Referral(s): Patrick Rogers MD [Primary Care Provider] - 1-2 days
[2017-07-16] MEDS: amLODIPine 10 MG TAB PO SCH (08:08)
[2017-07-16] MEDS: MULTIVITAMINS, THERA 1 EACH TAB PO SCH (08:08)
[2017-07-16] MEDS: FOLIC ACID 1 MG TAB PO SCH (08:08)
[2017-07-16] MEDS: levETIRAcetam 500 MG TAB PO SCH (08:08)
[2017-07-16] MEDS: DULoxetine HCL 60 MG CAPSULE.DR PO SCH (08:08)
[2017-07-16] MEDS: THIAMINE 100 MG TAB PO SCH (08:08)
[2017-07-16] MEDS: DOCUSATE 100 MG CAP PO SCH (08:08)
[2017-07-16] MEDS: hydrALAZINE HCL 50 MG TAB PO SCH (08:08)
[2017-07-16] MEDS: QUEtiapine 50 MG TAB PO SCH (08:08)
[2017-07-16] MEDS ORDERED: INFLUENZA VACCINE (6 MOS+) 60 MCG/0.5 ML SYRINGE IM ONE (08:39)
[2017-07-16] MEDS ORDERED: PNEUMOCOCCAL VACC-PNEUMOVAX 23 25 MCG/0.5 ML VIAL IM ONE (08:39)
[2017-07-16 10:12] LABS: Basophils % (A) 0 %; Eosinophils % (A) 0 %; HCT 36.5 % (39.0-53.0); HGB 11.5 gm/dL (13.0-17.5); Hypochromasia Slight; Lymphocytes # (A) 1.8 k/uL (1.0-4.8); Lymphocytes % (A) 16 %; MCH 28.6 pg (25.0-35.0); MCHC 31.5 g/dL (31.0-37.0); MCV 90.8 fL (80.0-100.0); Mean Platelet Volume 7.1; Monocytes # (A) 0.3 k/uL (0-1.0); Monocytes % (A) 3 %; Neutrophils # (A) 9.2 k/uL (1.3-7.7); Neutrophils % (A) 80 %; Platelet Count 299 k/uL (150-450); RBC 4.02 m/uL (4.30-5.90); RDW 15.3 % (11.5-15.5); WBC 11.4 k/uL (3.8-10.6)
--- NOTE | 2017-07-16 10:18 | P.PN ---
Subjective Progress Note Date: 07/16/17 Principal diagnosis: Left-sided pleuritic chest pain, secondary to left pleural effusion, most likely parapneumonic, that is post unsuccessful ultrasound-guided thoracentesis Progress note dated 07/14/2017 This is a 62-year-old black male with history of multiple medical problems including COPD essential hypertension sleep apnea syndrome chronic pain syndrome history of chronic alcohol abuse and liver cirrhosis SVT previous history of seizure disorder pancreatitis severe chemical/acid peng the chest DJD bipolar disorder chronic tobacco dependence on ongoing drug abuse and previous history of mental status changes secondary to drug overdose. Yesterday , the patient's computed tomography scan showed evidence of a relatively smaller left-sided effusion. Ultrasound was ordered. We may go ahead and have interventional radiology do a diagnostic thoracentesis. There does not appear to be a lot of fluid there. The patient has a number of complaints today including left-sided chest discomfort which is clearly pleuritic in nature as well as pain in the right and left groin area. He has a previous history of a left inguinal hernia repaired surgically. Progress note dated 07/15/2017 62-year-old white male with history of multiple medical problems including COPD essential hypertension sleep apnea syndrome chronic pain syndrome chronic alcohol abuse liver cirrhosis SVT seizure disorder pancreatitis bipolar disorder chronic tobacco dependence drug abuse and mental status changes. The patient had 2 complaints including a pleuritic type pain pain in the left chest area. There is a small left-sided effusion. We asked the interventional radiology to consider a diagnostic thoracentesis. In addition, the patient has some pain in his left groin area. The primary was going to ask with the surgeons to take a look at the patient. He apparently had a previous history of an inguinal hernia. He was recently transferred out from the sixth floor to the fourth floor. Not complaining of too much pain at this time. On 07/16/2017 patient seen again on medical surgical floor. He is uncomfortable , denies any distress, denies any worsening dyspnea, currently on room air, with a pulse ox of 95%, afebrile, hemodynamically stable. His ultrasound- guided thoracentesis was unsuccessful yesterday due to small amount of pleural fluid, or seizure was reported. She was also seen in consultation by surgery in regards to his left inguinal pain, and no evidence of inguinal hernia was found, and the pain was thought to be related to some scar tissue from prior surgery. Otherwise patient has had no acute events overnight, and is stable for discharge home today. Objective - Vital Signs Vital signs: Vital Signs Temp 97.0 F L 07/16/17 06:01 Pulse 65 07/16/17 06:01 Resp 16 07/16/17 06:01 BP 150/87 07/16/17 06:01 Pulse Ox 95 07/16/17 06:01 Intake & Output 07/15/17 07/16/17 07/16/17 18:59 06:59 18:59 Intake Total 0 Output Total 800 500 Balance -800 -500 Weight 77 kg Intake: IV 0 0.9 0 Output: Urine 800 500 Other: # Voids 2 - Exam Physical Exam: Revealed a 62-year-old male in no distress. Head: Atraumatic, normocephalic. HEENT:[ PERRLA, EOMI. Neck is supple.] [No neck masses.] [No thyromegaly.] [No JVD.] Moist mucous membranes, throat is clear. Chest: Breath sounds are clear to auscultation, no rhonchi no wheezes, no rales Cardiac Exam: [Normal S1 and S2, no S3 gallop, no murmur.] Abdomen: [Soft, nontender, no megaly, no rebound, no guarding, normal bowel sounds.] Extremities: [No clubbing, no edema, no cyanosis.] Neurological Exam: [No focal neurologic deficit.] Lymphatics: no lymphadenopathy. Psychiatric: Normal mood affect and mental status examination. Skin: No rashes, no erythema - Labs CBC & Chem 7: 07/15/17 06:29 07/12/17 15:45 Labs: Abnormal Lab Results - Last 24 Hours (Table) 07/15/17 07/15/17 07/15/17 Range/Units 12:50 17:15 20:58 POC Glucose (mg/dL) 133 H 182 H 221 H (75-99) mg/dL 07/16/17 Range/Units 07:09 POC Glucose (mg/dL) 109 H (75-99) mg/dL Assessment and Plan Plan: Assessment 1 left-sided pleuritic chest pain, secondary to left pleural effusion, most likely parapneumonic in nature. Seems to be loculated. Was not present on x- rays back in March of 2017. 2 loculated left pleural effusion is strongly suspected. 3 COPD, presently inactive. 4 obstructive sleep apnea syndrome, noncompliant with CPAP. 5 chronic pancreatitis 6 seizure disorder 7 chronic pain syndrome 8 bipolar disorder 9 liver cirrhosis secondary to alcohol abuse Plan: Plan dated 07/14/2017 The patient is currently receiving Solu-Medrol. In addition, ultrasound the chest revealed a small amount of fluid which may be loculated. We'll have interventional radiology consider doing a diagnostic thoracentesis. The patient also will be seen by surgery for left inguinal pain. He had a previous history of inguinal hernia repair. Additional recommendations and suggestions are forthcoming. Prognosis is guarded. Plan dated 07/15/2017 According to the primary service, the patient will be sent to interventional radiology for diagnostic thoracentesis. The fluid pocket on the left side is relatively small. It may relate to a parapneumonic effusion or benign effusion. In addition, surgery is apparently going to see the patient for his left inguinal pain. He apparently has history of inguinal hernia repair. He likely states that he will be discharged tomorrow. No additional recommendations are made. No follow-up with me as necessary. Plan dated 07/16/2017 Patient remains stable from pulmonary standpoint, vital signs are stable, patient denies any chest pain, no worsening dyspnea, no fever no chills. His left sided thoracentesis not be completed due to small amount of pleural fluid. He has been cleared for discharge home today, patient can follow-up with his primary care provider. Time with Patient: Less than 30 Time with Patient: Less than 30
== END 2017-07-16 10:11 | disposition home or self-care (01) ==
LOC: EC 15:15 → INTOOBSV 17:40 → 6SEL 17:40 → 4MS4W 07-15 10:47
PROVIDERS: ADMIT Family Medicine; ATTEND Family Medicine
DX: R07.89 Other chest pain (principal); J90 Pleural effusion, not elsewhere classified; R10.32 Left lower quadrant pain; E87.2 Acidosis; I11.9 Hypertensive heart disease without heart failure; I25.10 Atherosclerotic heart disease of native coronary artery without angina pectoris; F17.290 Nicotine dependence, other tobacco product, uncomplicated; J44.9 Chronic obstructive pulmonary disease, unspecified; I48.91 Unspecified atrial fibrillation; G40.909 Epilepsy, unspecified, not intractable, without status epilepticus; G47.33 Obstructive sleep apnea (adult) (pediatric); Z91.19 Patient's noncompliance with other medical treatment and regimen; F31.9 Bipolar disorder, unspecified; F41.9 Anxiety disorder, unspecified; R79.89 Other specified abnormal findings of blood chemistry; F12.90 Cannabis use, unspecified, uncomplicated; F10.21 Alcohol dependence, in remission; K86.1 Other chronic pancreatitis; Z53.9 Procedure and treatment not carried out, unspecified reason; I71.9 Aortic aneurysm of unspecified site, without rupture; K70.30 Alcoholic cirrhosis of liver without ascites; G89.4 Chronic pain syndrome; M54.9 Dorsalgia, unspecified; M79.662 Pain in left lower leg; M79.661 Pain in right lower leg; M47.9 Spondylosis, unspecified; I47.1 Supraventricular tachycardia; Z79.899 Other long term (current) drug therapy; Z88.0 Allergy status to penicillin; Z88.5 Allergy status to narcotic agent; Z86.69 Personal history of other diseases of the nervous system and sense organs; Z87.19 Personal history of other diseases of the digestive system; Z87.01 Personal history of pneumonia (recurrent); Z96.653 Presence of artificial knee joint, bilateral; Z80.42 Family history of malignant neoplasm of prostate; Z87.2 Personal history of diseases of the skin and subcutaneous tissue; Z87.828 Personal history of other (healed) physical injury and trauma
CPT/HCPCS: 96375 ×5; 96361 ×7; 96376 ×6; 99291 ×2; 32555; 96365; 96366; 96372 ×4; 36415; 94760 ×2; 93005; 85379; 83880; 80053; 82150; 82550 ×2; 82553 ×2; 83615; 83690; 83735; 84155; 84484 ×2; 85025 ×5; 85610; 85730 ×2; 71046; 76604 ×2; 71275; G0378 ×5; S4990 ×3; J1644 ×6; J2920 ×4; J3010; J1885; J1170 ×4; Q9967